=== PATIENT | male | born 1955 | race Caucasian/White ===

== ENCOUNTER 2019-12-30 16:44 | Observation (INO) ==
[2019-12-30 16:49] VITALS: BMI 27.6
[2019-12-30] MEDS ORDERED: NS 1000 ML 1,000 ML ONE (16:49)
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
[2019-12-30] MEDS ORDERED: NS 1000 ML 1,000 ML IV ONE (16:56)
[2019-12-30] MEDS ORDERED: ZOFRAN INJ 4 MG VIAL IVP ONE (17:24)
[2019-12-30] MEDS ORDERED: MORPHINE SULFATE INJ 4 MG IVP ONE (17:24)
[2019-12-30] MEDS ORDERED: ZOFRAN INJ 4 MG VIAL ONE (17:26)
[2019-12-30] MEDS ORDERED: MORPHINE SULFATE INJ 4 MG ONE (17:27)
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
[2019-12-30] MEDS ORDERED: DILAUDID INJ IVP ONE (17:48)
[2019-12-30] MEDS ORDERED: DILAUDID INJ ONE (17:49)
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
[2019-12-30 18:01] LABS: BASOPHILS % (AUTO) 0.3 % (0.2-1.0); EOSINOPHILS % (AUTO) 0.2 % (0.9-2.9); HEMATOCRIT 44.1 % (42.0-54.0); HEMOGLOBIN 14.9 g/dL (13.5-18.0); LYMPHOCYTES # (AUTO) 0.7 X10^3/uL (1.3-2.9); LYMPHOCYTES % (AUTO) 6.4 % (21.0-51.0); MEAN CORPUSCULAR HGB CONC 33.8 g/dL (33.0-35.0); MEAN CORPUSCULAR VOLUME 94.6 fL (80.0-100.0); MEAN PLATELET VOLUME 7.4 fL (7.4-11.0); MONOCYTES # (AUTO) 0.2 x10^3/uL (0.3-0.8); MONOCYTES % (AUTO) 2.3 % (0.0-13.0); NEUTROPHILS # (AUTO) 9.2 x10^3/uL (2.2-4.8); NEUTROPHILS % (AUTO) 90.8 % (42.0-75.0); PLATELET COUNT 137 X10^3/uL (150.0-450.0); RED BLOOD COUNT 4.66 X10^6/uL (4.7-6.0); RED CELL DISTRIBUTION WIDTH 14.4 % (11.6-16.5); WHITE BLOOD COUNT 10.2 X10^3/uL (3.6-10.0)
[2019-12-30 18:28] LABS: BAND NEUTROPHILS % 4 % (0-10); PLATELET MORPHOLOGY COMMENT NORMAL (NORMAL)
[2019-12-30 18:29] LABS: BLOOD UREA NITROGEN 18 mg/dL (7-18); CARBON DIOXIDE 27.2 mmol/L (21-32); CHLORIDE 101 mmol/L (98-107); COR NA(FOR HYPERGLY) 141 mmol/L (136-145); CREATININE 1.39 mg/dL (0.70-1.30); SODIUM 140 mmol/L (136-145); TROPONIN I 0.02 ng/mL (0-1.5); eGFR NON BLACK RACES 55 (>60)
[2019-12-30 19:05] LABS: ALANINE AMINOTRANSFERASE 41 Units/L (12-78); ALBUMIN 3.6 g/dL (3.4-5.0); ALKALINE PHOSPHATASE 55 Units/L (46-116); ASPARTATE AMINO TRANSFERASE 40 Units/L (15-37); CKMB % 2.4 % (<4); CREATINE KINASE 222 Units/L (39-308); TOTAL PROTEIN 7.1 g/dL (6.4-8.2)
[2019-12-30 19:06] LABS: CREATINE KINASE MB 5.4 ng/mL (0-4.0)
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
[2019-12-30] MEDS ORDERED: HumuLIN R SC PRN (20:39)
[2019-12-30] MEDS: NS 1000 ML 1,000 ML IV SCH (21:48)
[2019-12-30] MEDS ORDERED: DESYREL PO SCH (22:00)
[2019-12-31 00:31] LABS: CKMB % 2.9 % (<4); TROPONIN I 0.02 ng/mL (0-1.5)
[2019-12-31 00:44] LABS: CREATINE KINASE MB 9.8 ng/mL (0-4.0)
[2019-12-31] MEDS: DILAUDID INJ IVP PRN ×2 (01:24→08:56)
[2019-12-31 01:42] LABS: BILIRUBIN,URINE NEGATIVE (NEGATIVE); BLOOD/HEMOGLOBIN,URINE 5+ (NEGATIVE); GLUCOSE, URINE NEGATIVE (NEGATIVE); KETONES,URINE 3+ (NEGATIVE); LEUKOCYTE ESTERASE ,URINE 2+ (NEGATIVE); NITRITES,URINE NEGATIVE (NEGATIVE); PH,URINE 6.5 (5.0 - 8.0); PROTEIN,URINE 2+ (NEGATIVE); UROBILINOGEN,URINE NORMAL (NORMAL)
[2019-12-31 01:52] LABS: AMORPHOUS SEDIMENT,UR 2+ /HPF (NEGATIVE); APPEARANCE,URINE SLIGHTLY HAZY (CLEAR); BACTERIA,URINE TRACE /HPF (NEGATIVE); COLOR,URINE YELLOW (YELLOW); RBC,URINE TNTC /HPF (0-3); SQUAMOUS EPITHELIAL CELL,UR RARE /HPF (NEGATIVE)
[2019-12-31 05:37] LABS: BASOPHILS % (AUTO) 0.3 % (0.2-1.0); EOSINOPHILS % (AUTO) 0.1 % (0.9-2.9); HEMATOCRIT 38.6 % (42.0-54.0); HEMOGLOBIN 13.1 g/dL (13.5-18.0); LYMPHOCYTES # (AUTO) 0.7 X10^3/uL (1.3-2.9); LYMPHOCYTES % (AUTO) 9.3 % (21.0-51.0); MEAN CORPUSCULAR HEMOGLOBIN 32.4 pg (27.0-34.0); MEAN CORPUSCULAR HGB CONC 34.1 g/dL (33.0-35.0); MEAN CORPUSCULAR VOLUME 95.1 fL (80.0-100.0); MEAN PLATELET VOLUME 7.6 fL (7.4-11.0); MONOCYTES # (AUTO) 0.3 x10^3/uL (0.3-0.8); MONOCYTES % (AUTO) 3.7 % (0.0-13.0); NEUTROPHILS # (AUTO) 6.8 x10^3/uL (2.2-4.8); NEUTROPHILS % (AUTO) 86.6 % (42.0-75.0); PLATELET COUNT 117 X10^3/uL (150.0-450.0); RED BLOOD COUNT 4.05 X10^6/uL (4.7-6.0); RED CELL DISTRIBUTION WIDTH 14.2 % (11.6-16.5); WHITE BLOOD COUNT 7.8 X10^3/uL (3.6-10.0)
[2019-12-31 06:26] LABS: ALANINE AMINOTRANSFERASE 36 Units/L (12-78); ALBUMIN 3.2 g/dL (3.4-5.0); ALKALINE PHOSPHATASE 45 Units/L (46-116); ASPARTATE AMINO TRANSFERASE 43 Units/L (15-37); BLOOD UREA NITROGEN 14 mg/dL (7-18); CALCIUM 8.6 mg/dL (8.5-10.1); CARBON DIOXIDE 27.2 mmol/L (21-32); CHLORIDE 102 mmol/L (98-107); CKMB % 2.7 % (<4); COR CA(FOR HYPOALB) 9.2 mg/dL (8.5-10.1); COR NA(FOR HYPERGLY) 137 mmol/L (136-145); CREATINE KINASE 334 Units/L (39-308); CREATININE 1.03 mg/dL (0.70-1.30); SODIUM 137 mmol/L (136-145); TOTAL PROTEIN 6.6 g/dL (6.4-8.2); TROPONIN I 0.02 ng/mL (0-1.5); eGFR NON BLACK RACES > 60 (>60)
[2019-12-31 06:29] LABS: CREATINE KINASE MB 9.1 ng/mL (0-4.0)
[2019-12-31] MEDS: TORADOL 30 MG VIAL IVP SCH ×2 (12:01→17:37)
[2019-12-31] MEDS: COZAAR PO SCH ×2 (12:01→20:05)
[2019-12-31] MEDS: TYLENOL #3 TAB (W/CODEINE) PO SCH ×4 (12:01→20:04)
[2019-12-31] MEDS: PROCARDIA XL PO SCH (12:02)
[2019-12-31] MEDS: SYNTHROID 150 mcg TAB PO SCH (12:02)
[2019-12-31] MEDS: MICRO K EXTEN CAP 10 MEQ PO SCH (12:03)
[2019-12-31] MEDS ORDERED: RisperDAL TAB 1 MG PO SCH (14:00)
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
[2019-12-31] MEDS: PREDNISONE TAB 10 MG PO SCH ×2 (14:54→22:31)
[2019-12-31] MEDS: EFFEXOR XR 75 MG CAP 24-HR PO SCH ×2 (14:54→22:32)
[2019-12-31] MEDS: RisperDAL TAB 1 MG PO SCH ×2 (14:54→22:31)
[2019-12-31] MEDS ORDERED: ZOLOFT PO ONE (19:33)
[2019-12-31] MEDS: NS 1000 ML 1,000 ML IV SCH ×2 (19:54→22:36)
[2019-12-31] MEDS: ZOLOFT PO SCH (20:02)
[2019-12-31] MEDS: COLACE CAP 100 MG PO SCH (20:02)
[2019-12-31] MEDS: DESYREL PO SCH (20:03)
[2019-12-31] MEDS: ZOCOR TAB 40 MG PO SCH (20:04)
[2020-01-01] MEDS: TORADOL 30 MG VIAL IVP SCH ×3 (02:22→17:36)
[2020-01-01] MEDS: PREDNISONE TAB 10 MG PO SCH ×3 (05:12→21:00)
[2020-01-01] MEDS: RisperDAL TAB 1 MG PO SCH ×3 (05:12→21:00)
[2020-01-01] MEDS: EFFEXOR XR 75 MG CAP 24-HR PO SCH ×3 (05:12→20:59)
[2020-01-01 06:03] LABS: BASOPHILS % (AUTO) 0.2 % (0.2-1.0); EOSINOPHILS % (AUTO) 0.1 % (0.9-2.9); HEMATOCRIT 37.9 % (42.0-54.0); HEMOGLOBIN 12.7 g/dL (13.5-18.0); LYMPHOCYTES # (AUTO) 0.9 X10^3/uL (1.3-2.9); LYMPHOCYTES % (AUTO) 13.6 % (21.0-51.0); MEAN CORPUSCULAR HEMOGLOBIN 31.7 pg (27.0-34.0); MEAN CORPUSCULAR HGB CONC 33.5 g/dL (33.0-35.0); MEAN CORPUSCULAR VOLUME 94.7 fL (80.0-100.0); MEAN PLATELET VOLUME 7.6 fL (7.4-11.0); MONOCYTES # (AUTO) 0.4 x10^3/uL (0.3-0.8); MONOCYTES % (AUTO) 6.3 % (0.0-13.0); NEUTROPHILS # (AUTO) 5.4 x10^3/uL (2.2-4.8); NEUTROPHILS % (AUTO) 79.8 % (42.0-75.0); PLATELET COUNT 110 X10^3/uL (150.0-450.0); WHITE BLOOD COUNT 6.7 X10^3/uL (3.6-10.0)
[2020-01-01 06:11] LABS: ALANINE AMINOTRANSFERASE 39 Units/L (12-78); ALBUMIN 3.3 g/dL (3.4-5.0); ALKALINE PHOSPHATASE 48 Units/L (46-116); ASPARTATE AMINO TRANSFERASE 42 Units/L (15-37); BLOOD UREA NITROGEN 16 mg/dL (7-18); CALCIUM 8.9 mg/dL (8.5-10.1); CARBON DIOXIDE 29.1 mmol/L (21-32); CHLORIDE 104 mmol/L (98-107); COR CA(FOR HYPOALB) 9.5 mg/dL (8.5-10.1); CREATININE 0.92 mg/dL (0.70-1.30); SODIUM 140 mmol/L (136-145); TOTAL PROTEIN 6.8 g/dL (6.4-8.2); eGFR NON BLACK RACES > 60 (>60)
[2020-01-01] MEDS: DILAUDID INJ IVP PRN ×2 (06:17→14:07)
[2020-01-01 09:04] LABS: CKMB % 1.6 % (<4); TROPONIN I 0.02 ng/mL (0-1.5)
[2020-01-01 09:08] LABS: CREATINE KINASE MB 4.5 ng/mL (0-4.0)
[2020-01-01] MEDS: COZAAR PO SCH ×2 (09:23→21:00)
[2020-01-01] MEDS: TYLENOL #3 TAB (W/CODEINE) PO SCH ×4 (09:24→21:00)
[2020-01-01] MEDS: PROCARDIA XL PO SCH (09:24)
[2020-01-01] MEDS: SYNTHROID 150 mcg TAB PO SCH (09:24)
[2020-01-01] MEDS: MICRO K EXTEN CAP 10 MEQ PO SCH (09:24)
[2020-01-01] MEDS: NS 1000 ML 1,000 ML IV SCH ×2 (10:14→10:21)
[2020-01-01] MEDS ORDERED: ZOLOFT PO ONE (20:21)
[2020-01-01] MEDS: DESYREL PO SCH (20:57)
[2020-01-01] MEDS: ZOLOFT PO SCH (20:58)
[2020-01-01] MEDS: ZOCOR TAB 40 MG PO SCH (20:59)
[2020-01-01] MEDS: COLACE CAP 100 MG PO SCH (20:59)
[2020-01-02] MEDS: NS 1000 ML 1,000 ML IV SCH (02:16)
[2020-01-02] MEDS: TORADOL 30 MG VIAL IVP SCH ×3 (02:16→09:47)
[2020-01-02] MEDS: PREDNISONE TAB 10 MG PO SCH (05:55)
[2020-01-02] MEDS: EFFEXOR XR 75 MG CAP 24-HR PO SCH (05:55)
[2020-01-02] MEDS: RisperDAL TAB 1 MG PO SCH (05:56)
[2020-01-02] MEDS: DILAUDID INJ IVP PRN (06:10)
[2020-01-02 06:16] LABS: BASOPHILS % (AUTO) 0.3 % (0.2-1.0); EOSINOPHILS % (AUTO) 0.1 % (0.9-2.9); HEMATOCRIT 36.2 % (42.0-54.0); HEMOGLOBIN 12.3 g/dL (13.5-18.0); LYMPHOCYTES # (AUTO) 1.3 X10^3/uL (1.3-2.9); LYMPHOCYTES % (AUTO) 16.4 % (21.0-51.0); MEAN CORPUSCULAR HGB CONC 34.1 g/dL (33.0-35.0); MEAN PLATELET VOLUME 7.5 fL (7.4-11.0); MONOCYTES # (AUTO) 0.6 x10^3/uL (0.3-0.8); MONOCYTES % (AUTO) 7.4 % (0.0-13.0); NEUTROPHILS # (AUTO) 5.9 x10^3/uL (2.2-4.8); NEUTROPHILS % (AUTO) 75.8 % (42.0-75.0); PLATELET COUNT 125 X10^3/uL (150.0-450.0); RED BLOOD COUNT 3.85 X10^6/uL (4.7-6.0); WHITE BLOOD COUNT 7.8 X10^3/uL (3.6-10.0)
[2020-01-02 06:21] LABS: ALANINE AMINOTRANSFERASE 36 Units/L (12-78); ALBUMIN 3.2 g/dL (3.4-5.0); ALKALINE PHOSPHATASE 44 Units/L (46-116); ASPARTATE AMINO TRANSFERASE 34 Units/L (15-37); BLOOD UREA NITROGEN 15 mg/dL (7-18); CARBON DIOXIDE 31.7 mmol/L (21-32); CHLORIDE 103 mmol/L (98-107); COR CA(FOR HYPOALB) 9.6 mg/dL (8.5-10.1); CREATININE 0.94 mg/dL (0.70-1.30); SODIUM 139 mmol/L (136-145); TOTAL PROTEIN 6.7 g/dL (6.4-8.2); eGFR NON BLACK RACES > 60 (>60)
[2020-01-02] MEDS: COZAAR PO SCH (08:40)
[2020-01-02] MEDS: MICRO K EXTEN CAP 10 MEQ PO SCH (08:40)
[2020-01-02] MEDS: TYLENOL #3 TAB (W/CODEINE) PO SCH (08:41)
[2020-01-02] MEDS: SYNTHROID 150 mcg TAB PO SCH (08:41)
[2020-01-02] MEDS: PROCARDIA XL PO SCH (08:41)
[2020-01-02 09:46] VITALS: BP 142/82
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
== END 2020-01-02 11:45 | disposition home or self-care (01) ==
LOC: ER 16:44 → MED/SURG 16:44
PROVIDERS: ADMIT Internal Medicine; ATTEND Internal Medicine
DX: M51.34 Other intervertebral disc degeneration, thoracic region; R26.89 Other abnormalities of gait and mobility; S40.812A Abrasion of left upper arm, initial encounter; V89.2XXA Person injured in unspecified motor-vehicle accident, traffic, initial encounter; Y92.9 Unspecified place or not applicable; S41.111A Laceration without foreign body of right upper arm, initial encounter; I10 Essential (primary) hypertension; I95.89 Other hypotension; S62.666A Nondisplaced fracture of distal phalanx of right little finger, initial encounter for closed fracture; W22.10XA Striking against or struck by unspecified automobile airbag, initial encounter; R10.2 Pelvic and perineal pain; G89.11 Acute pain due to trauma; R40.4 Transient alteration of awareness; R94.31 Abnormal electrocardiogram [ECG] [EKG]; M54.2 Cervicalgia; S41.112A Laceration without foreign body of left upper arm, initial encounter; S40.811A Abrasion of right upper arm, initial encounter; M54.5 Low back pain
CPT/HCPCS: 36415; 70450; 72125; 72128; 72131; 72192; 73130; 80053; 81001; 82550; 82553; 83735; 84484; 85025; 93005; 94760; 96360; 96361; 96365; 96367; 96374; 96375; 97116; 97161; 97530; 99284; G0378; J1170; J1885; J2270; J2405; J7030; J7512

== ENCOUNTER 2020-04-26 09:12 | Inpatient (IN) ==
[2020-04-26 09:24] VITALS: BMI 27.6
--- NOTE | 2020-04-26 09:28 | DR.EXTPAIN ---
HPI Time seen Time Seen by Provider: 04/26/20 09:26 PCP Primary Care Physician: DR. DANIEL HPI Comment HPI Comment: PATIENT IS 64 YR OLD MALE IN ER WITH HISTORY OF FREQUENT FALLS OVER FEW DAYS. FELL THIS AM AND EMS CALLED. DENIES LOC. HE IS COMPLAINING OF GENERALIZED BODY ACHES. NO FEVER OR CHEST PAIN. COUGHING, NON PRODUCTIVE AND WEAK. SKIN TEAR AND PAIN RIGHT ELBOW. SLIGHT PAIN LOWER NECK. DENIES DYSURIA. Complaint/Symptoms Chief Complaint Doctor Comments: FREQUENT FALLS. Chief Complaint:: PT HAD A FALL AT HOME THIS AM. PT REPORTS MULTIPLE FALLS OVER PAST FEW DAYS. PT DENIES PASSING OUT OF HITTING HIS HEAD. PT C/O BEING SORE ALL OVER BUT DENIES SPECIFIC INJURY. COVID-19 Coronavirus risk:travel/contact w/high risk person: No Has patient experienced Coronavirus symptoms: No Nurses notes reviewed Nurses Notes Review: Yes Source History Provided: Patient and EMS Mode of arrival Mode of Arrival: EMS Timing Onset of Chief Complaint: 04/26/20 Context History of: Arthritis Associated signs and symptoms Associated Signs and Symptoms: Laceration (SKIN TEAR RIGHT ELBOW.), Weakness and Pain PMH PMH Past Medical History: Yes Past Medical History: Anxiety, Depression and Hypertension Past Surgical History: Yes Surgical History: Ortho Surgery Family History History of Family Medical Conditions: Yes Family Medical History: Cancer Social History Does patient currently use any type of tobacco product: Yes Have you used tobacco products in the last 12 months: Yes Type of Tobacco Use: Cigarettes Does any household member use tobacco: No Alcohol Use: DAILY Do you use any recreational Drugs:: No Lives With: Family Lives Where: Home Travel Risk Coronavirus risk:travel/contact w/high risk person: No Has patient experienced Coronavirus symptoms: No Infectious screening In the last 2 months have you had wt loss of >10#?: NO Have you had fever, night sweats or hemotysis?: No Have you traveled outside the country in the last 6 months?: No Isolation: Standard ROS Review of Systems Constitutional: See HPI, Weakness and Fatigue; negative Fever Eyes: No Symptoms Reported and See HPI; negative Blurred Vision and Diplopia ENTM: See HPI and Nose Congestion; negative Ear Pain, Nose Discharge and Throat Pain Respiratoy: See HPI, Non-Productive Cough and Short of Breath (ON EXERTION.); negative Wheezing Cardiovascular: No Symptoms Reported and See HPI; negative Chest Pain and Syncope Gastrointestinal/Abdominal: See HPI and Nausea; negative Abdominal Pain, Diarrhea and Vomiting Genitourinary: No Symptoms Reported and See HPI; negative Dysuria, Hematuria and Pain Neurological: See HPI, Headache and Weakness; negative Dizziness Musculoskeletal: See HPI, Back Pain and Muscle Pain Integumentary: No Symptoms Reported and See HPI; negative Change in Color, Rash and Juandice Hematologic/Lymphatic: No Symptoms Reported and See HPI; negative Easy Bruising and Swollen Glands Endocrine: No Symptoms Reported and See HPI; negative Increased Thirst and Increased Urine Psychiatric: No Symptoms Reported and See HPI All Other Systems: Reviewed and Negative PE Vital Signs Vitals: Temperature 98.2 F Pulse Rate 84 Respiratory Rate 20 Blood Pressure [Left Arm] 142/82 Blood Pressure 170/86 O2 Sat by Pulse Oximetry 96 General Limitations: No Limitations General Appearance: Alert and In No Apparent Distress Head Head Exam: Normal Inspection and Atraumatic Eyes Eye exam: Normal Appearance and PERRL; negative Scleral Icterus and Conjunctival Injection ENT ENT Exam: Normal Exam, Normal Oropharynx, Normal External Ear Exam and TM's Normal Bilaterally Neck Neck Exam: Normal Inspection and Trachea Midline; negative Tenderness and Lymphadenopathy Chest Chest Inspection: Normal Inspection and Symmetric Chest Wall Rise; negative Tenderness Respiratory Respiratory Exam: Normal Lung Sounds Bilat; negative Accessory Muscle Use, Chest Wall Tenderness and Respiratory Distress Respiratory Exam: Bilateral: Rhonchi and Lower: Rhonchi Cardiovascular Cardiovascular Exam: Regular Rate, Normal Rhythm and Normal Heart Sounds; negative Systolic Murmur and Diastolic Murmur Abdominal Exam Abdominal Exam: Normal Inspection, Normal Bowel Sounds and Soft; negative Tenderness Extremities Extremities Exam: Normal Inspection and Normal Capillary Refill; negative Tenderness, Edema and Calf Tenderness Back Back Exam: Normal Inspection; negative Tenderness, (R) CVA Tenderness and (L) CVA Tenderness Neurological Neurological Exam: Alert, Oriented X3 and CN II-XII Intact; negative Motor Sensory Deficit Psychiatric Psychiatric Exam: Normal Affect and Normal Mood Skin Skin Exam: Warm, Dry, Intact and Normal Color MDM Differential Diagnosis Differential Diagnosis: Other (FREQUENT FALL, DEHYDRATION, HI, PNEUMONIA, UTI/SEPSIS, GENERALIZED WEAKNESS, CVA.) COURSE Treatment Treatment: SEE ORDERS. NS IV. Consultation Consultation Comments: DISCUSSED PATIENT WITH DR. MANLEY, SHE WILL ADMIT PATIENT. Education/Counseling Education/Counseling: Patient Educated On: Diagnosis ROR Labs Reviewed Laboratory Results Reviewed?: Yes Result Diagrams: 04/29/20 05:10 04/29/20 05:10 Laboratory: WBC 12.2 X10^3/uL (3.6-10.0) H 04/26/20 09:54 RBC 4.75 X10^6/uL (4.7-6.0) 04/26/20 09:54 Hgb 14.7 g/dL (13.5-18.0) 04/26/20 09:54 Hct 43.9 % (42.0-54.0) 04/26/20 09:54 MCV 92.4 fL (80.0-100.0) 04/26/20 09:54 MCH 30.9 pg (27.0-34.0) 04/26/20 09:54 MCHC 33.5 g/dL (33.0-35.0) 04/26/20 09:54 RDW 14.9 % (11.6-16.5) 04/26/20 09:54 Plt Count 127 X10^3/uL (150.0-450.0) L 04/26/20 09:54 MPV 7.0 fL (7.4-11.0) L 04/26/20 09:54 Neut % (Auto) 85.8 % (42.0-75.0) H 04/26/20 09:54 Lymph % (Auto) 6.4 % (21.0-51.0) L 04/26/20 09:54 [place] % (Auto) 7.6 % (0.0-13.0) 04/26/20 09:54 Eos % (Auto) 0.0 % (0.9-2.9) L 04/26/20 09:54 Baso % (Auto) 0.2 % (0.2-1.0) 04/26/20 09:54 Neut # (Auto) 10.4 x10^3/uL (2.2-4.8) H 04/26/20 09:54 Lymph # (Auto) 0.8 X10^3/uL (1.3-2.9) L 04/26/20 09:54 [place] # (Auto) 0.9 x10^3/uL (0.3-0.8) H 04/26/20 09:54 Eos # (Auto) 0.0 x10^3/uL (0.0-0.2) 04/26/20 09:54 Baso # (Auto) 0.0 X10^3/uL (0.0-0.1) 04/26/20 09:54 Absolute Nucleated RBC 0.0 /100WBC 04/26/20 09:54 Sodium 134 mmol/L (136-145) L 04/26/20 09:54 Corrected Sodium TNP 04/26/20 09:54 Potassium 5.2 mmol/L (3.5-5.1) H 04/26/20 09:54 Chloride 100 mmol/L (98-107) 04/26/20 09:54 Carbon Dioxide 22.7 mmol/L (21-32) 04/26/20 09:54 BUN 17 mg/dL (7-18) 04/26/20 09:54 Creatinine 1.21 mg/dL (0.70-1.30) 04/26/20 09:54 Est GFR (MDRD) Af Amer > 60 (>60) 04/26/20 09:54 Est GFR (MDRD) Non-Af > 60 (>60) 04/26/20 09:54 Glucose 75 mg/dL (65-99) 04/26/20 09:54 Calcium 9.0 mg/dL (8.5-10.1) 04/26/20 09:54 Corrected Calcium TNP 04/26/20 09:54 Total Bilirubin 0.60 mg/dL (0.2-1.0) 04/26/20 09:54 AST 97 Units/L (15-37) H 04/26/20 09:54 ALT 63 Units/L (12-78) 04/26/20 09:54 Alkaline Phosphatase 76 Units/L (46-116) 04/26/20 09:54 Creatine Kinase 6976 Units/L (39-308) H 04/26/20 11:38 CK-MB (CK-2) 9.5 ng/mL (0-4.0) H* 04/26/20 11:38 CK/CKMB % Calc 0.1 % (<4) 04/26/20 11:38 Troponin I 0.05 ng/mL (0-1.5) 04/26/20 11:38 Total Protein 7.5 g/dL (6.4-8.2) 04/26/20 09:54 Albumin 3.8 g/dL (3.4-5.0) 04/26/20 09:54 Globulin 3.7 g/dL (2.5-4.5) 04/26/20 09:54 Albumin/Globulin Ratio 1.0 Ratio (1.1-2.1) L 04/26/20 09:54 Specimen Type Clean catch urine 04/26/20 09:45 Urine Color Yellow (YELLOW) 04/26/20 09:45 Urine Appearance Slightly hazy (CLEAR) 04/26/20 09:45 Urine pH 6.0 (5.0 - 8.0) 04/26/20 09:45 Ur Specific [place] 1.015 (1.000-1.030) 04/26/20 09:45 Urine Protein 2+ (NEGATIVE) 04/26/20 09:45 Urine Glucose (UA) Negative (NEGATIVE) 04/26/20 09:45 Urine Ketones 3+ (NEGATIVE) 04/26/20 09:45 Urine Occult Blood 5+ (NEGATIVE) 04/26/20 09:45 Urine Nitrite Negative (NEGATIVE) 04/26/20 09:45 Urine Bilirubin Negative (NEGATIVE) 04/26/20 09:45 Urine Urobilinogen Normal (NORMAL) 04/26/20 09:45 Ur Leukocyte Esterase Negative (NEGATIVE) 04/26/20 09:45 Urine RBC 5-10 /HPF (0-3) A 04/26/20 09:45 Urine WBC 0-2 /HPF (0-5) 04/26/20 09:45 Ur Squamous Epith Cells Rare /HPF (NEGATIVE) 04/26/20 09:45 Urine Bacteria Trace /HPF (NEGATIVE) 04/26/20 09:45 Hyaline Casts Moderate /LPF (NEGATIVE) 04/26/20 09:45 Ur Culture Indicated? No/not indicated 04/26/20 09:45 Urine Opiates Screen Positive (NEG=<300) 04/26/20 09:45 Urine Methadone Screen Negative (NEG=<300) 04/26/20 09:45 Ur Barbiturates Screen Negative (NEG=<200) 04/26/20 09:45 Ur Phencyclidine Scrn Negative (NEG=<25) 04/26/20 09:45 Ur Amphetamines Screen Negative (NEG=<1000) 04/26/20 09:45 U Benzodiazepines Scrn Negative (NEG=<200) 04/26/20 09:45 Urine Cocaine Screen Negative (NEG=<300) 04/26/20 09:45 U Marijuana (THC) Screen Negative (NEG=<50) 04/26/20 09:45 XRAY XRAY Interpreted by: Radiologist (REPORTS NOTED AND DISCUSSED WITH PATIENT,) and Self EKG Rate: 97 [place]: Normal Rhythm: NSR Block: LBBB ST: Inf, Ischemia and Nonsp Opioid Opioid Risk Tool Age (Valerio box if 16-45): No History of Preadolescent Sexual Abuse: No Total: 0 Total Score Risk Category: Low Risk Copyright: [facility] predicting aberrant behaviors Diagnosis Discharge Problem: Abnormal cardiac enzyme level, Generalized weakness Rhabdomyolysis Qualifiers: Rhabdomyolysis type: traumatic Encounter type: initial encounter Qualified Code(s): T79.6XXA - Traumatic ischemia of muscle, initial encounter
[2020-04-26 09:59] LABS: BILIRUBIN,URINE NEGATIVE (NEGATIVE); BLOOD/HEMOGLOBIN,URINE 5+ (NEGATIVE); GLUCOSE, URINE NEGATIVE (NEGATIVE); KETONES,URINE 3+ (NEGATIVE); LEUKOCYTE ESTERASE ,URINE NEGATIVE (NEGATIVE); NITRITES,URINE NEGATIVE (NEGATIVE); PROTEIN,URINE 2+ (NEGATIVE); UROBILINOGEN,URINE NORMAL (NORMAL)
[2020-04-26 10:00] LABS: BASOPHILS % (AUTO) 0.2 % (0.2-1.0); HEMATOCRIT 43.9 % (42.0-54.0); HEMOGLOBIN 14.7 g/dL (13.5-18.0); LYMPHOCYTES # (AUTO) 0.8 X10^3/uL (1.3-2.9); LYMPHOCYTES % (AUTO) 6.4 % (21.0-51.0); MEAN CORPUSCULAR HEMOGLOBIN 30.9 pg (27.0-34.0); MEAN CORPUSCULAR HGB CONC 33.5 g/dL (33.0-35.0); MEAN CORPUSCULAR VOLUME 92.4 fL (80.0-100.0); MONOCYTES # (AUTO) 0.9 x10^3/uL (0.3-0.8); MONOCYTES % (AUTO) 7.6 % (0.0-13.0); NEUTROPHILS # (AUTO) 10.4 x10^3/uL (2.2-4.8); NEUTROPHILS % (AUTO) 85.8 % (42.0-75.0); PLATELET COUNT 127 X10^3/uL (150.0-450.0); RED BLOOD COUNT 4.75 X10^6/uL (4.7-6.0); RED CELL DISTRIBUTION WIDTH 14.9 % (11.6-16.5); WHITE BLOOD COUNT 12.2 X10^3/uL (3.6-10.0)
[2020-04-26 10:16] LABS: APPEARANCE,URINE SLIGHTLY HAZY (CLEAR); BACTERIA,URINE TRACE /HPF (NEGATIVE); COLOR,URINE YELLOW (YELLOW); HYALINE CASTS, URINE MODERATE /LPF (NEGATIVE); SQUAMOUS EPITHELIAL CELL,UR RARE /HPF (NEGATIVE)
[2020-04-26 10:17] LABS: BLOOD UREA NITROGEN 17 mg/dL (7-18); CARBON DIOXIDE 22.7 mmol/L (21-32); CHLORIDE 100 mmol/L (98-107); CREATININE 1.21 mg/dL (0.70-1.30); SODIUM 134 mmol/L (136-145); TROPONIN I 0.04 ng/mL (0-1.5); eGFR NON BLACK RACES > 60 (>60)
[2020-04-26 10:40] LABS: ALANINE AMINOTRANSFERASE 63 Units/L (12-78); ALBUMIN 3.8 g/dL (3.4-5.0); ALKALINE PHOSPHATASE 76 Units/L (46-116); ASPARTATE AMINO TRANSFERASE 97 Units/L (15-37); TOTAL PROTEIN 7.5 g/dL (6.4-8.2)
[2020-04-26 10:41] LABS: CKMB % 0.1 % (<4); CREATINE KINASE 4990 Units/L (39-308)
--- NOTE | 2020-04-26 10:44 | CT ---
HISTORYS/P FALL, TRAUMASTUDYHEAD (TRAUMA)[id number].TECHNIQUEMultiple axial images of the brain were obtained from the skull base to the vertex without administration of IV contrast. Dose reduction techniques including Automa rah Exposure Control (AEC) and adjustment of mA and kV were utilized.FINDINGSThere is ventricular, as well as, cisternal and sulcal prominence, in addition to, atherosclerotic changes of the proximal in tracranial carotid arteries bilaterally. No acute intraparenchymal hemorrhage or mass can be identifi ed. No extra-axial fluid collections are seen. No alteration in the attenuation of the brain parenchy ma can be identified to suggest acute or subacute ischemic change. The ventricular system is symmetri c and nondilated. The extracranial structures are grossly unremarkable.IMPRESSIONMild cerebral atroph ic changes without acute intracranial abnormality.Electronically signed by: EMMIE HEADLEY (Apr 26 0 10:43:46)
--- NOTE | 2020-04-26 10:47 | CT ---
HISTORYS/P FALL, TRAUMASTUDYCERVICAL SPINE W/O [id number] axial images of the cervical spine were obtained from the skull base to the thoracic inlet without administration of IV contrast. Sagittal and coronal reformats were performed and reviewed. Dose reduction techniques including Automated Exposure Control (AEC) and adjustment of mA and kV were utilized.FINDINGSAlignment of the cervical spine is maintained. No evidence for acute cortical disruption or subluxation can be seen. The central canal remains free of compromise from bony fragments or significant soft tissue encroachment. The posterior elements are grossly intact. The prevertebral soft tissues are normal in their appearance. In addition, the surrounding paraspinous soft tissues are unremarkable. Moderate degenerative changes of the cervical spine are noted. There are paraseptal emphysematous changes of both lung apices.IMPRESSIONNo evidence for traumatic injury of the cervical spine.Electronically signed by: EMMIE HEADLEY (Apr 26, 2020 10:46:41)
[2020-04-26 12:39] LABS: CKMB % 0.1 % (<4); TROPONIN I 0.05 ng/mL (0-1.5)
[2020-04-26 12:40] LABS: CREATINE KINASE MB 9.5 ng/mL (0-4.0)
[2020-04-26] MEDS ORDERED: NS 1000 ML 1,000 ML ONE (14:17)
[2020-04-26] MEDS: NS 1000 ML 1,000 ML IV SCH (14:34)
[2020-04-26 15:46] LABS: TROPONIN I 0.07 ng/mL (0-1.5)
--- NOTE | 2020-04-26 16:15 | RAD ---
HISTORY:Right elbow pain after fallStudy:Three views right elbowComparison: NoneFindings:Exam is limited by nonstandard positioning. Alignment appears grossly normal. No acute fracture or dislocation identified. The soft tissues are intact. No joint effusion identified.IMPRESSION:1. No acute osseous abnormality identified.Electronically signed by: WIL TORRES (Apr 26, 2020 16:14:33)
--- NOTE | 2020-04-26 16:16 | RAD ---
HISTORY:Fall, traumaStudy: Single view chestComparison:NoneFindings:No infiltrate, effusion, or pneumothorax identified .Cardiac and mediastinal contours are within normal limits.There are age indeterminate left posterior lateral rib deformities, possibly chronic in nature but clinical correlation with physical exam is needed.IMPRESSION:1. No acute cardiopulmonary abnormality.2. Age-indeterminate left posterior lateral rib fractures, possibly chronic in nature but clinical correlation with physical exam is needed.Electronically signed by: WIL TORRES (Apr 26, 2020 16:15:50)
--- NOTE | 2020-04-26 16:18 | RAD ---
HISTORY:Fall, traumaStudy:Two views of the pelvisComparison:NoneFindings:There are partially visualized postsurgical changes of the left femur. Distal portion of the hardware is not visualized. No displaced fracture or dislocation identified. There are degenerative changes of the bilateral hip joints.IMPRESSION:1. Postsurgical changes of the left femur partially visualized. Distal hardware is not included in the field of view. Moderate degenerative changes of the bilateral hips without definite fracture.Electronically signed by: WIL TORRES (Apr 26, 2020 16:17:09)
[2020-04-26 16:28] LABS: CKMB % 0.1 % (<4)
[2020-04-26 16:29] LABS: CREATINE KINASE MB 10.2 ng/mL (0-4.0)
[2020-04-26 20:53] LABS: TROPONIN I 0.16 ng/mL (0-1.5)
[2020-04-26 20:57] LABS: CREATINE KINASE MB 11.3 ng/mL (0-4.0)
[2020-04-26] MEDS: COLACE CAP 100 MG PO SCH (21:00)
[2020-04-26] MEDS: MILK OF MAGNESIA PO SCH (21:00)
[2020-04-26 21:22] LABS: CKMB % 0.1 % (<4)
[2020-04-27] MEDS: MIRALAX POWDER (1 DOSE 17 G) PO SCH ×2 (01:19→22:32)
[2020-04-27 02:54] LABS: TROPONIN I 0.17 ng/mL (0-1.5)
[2020-04-27 02:59] LABS: CREATINE KINASE MB 9.7 ng/mL (0-4.0)
[2020-04-27 03:09] LABS: CKMB % 0.1 % (<4)
[2020-04-27 06:10] LABS: BASOPHILS % (AUTO) 0.4 % (0.2-1.0); EOSINOPHILS % (AUTO) 0.1 % (0.9-2.9); HEMOGLOBIN 13.7 g/dL (13.5-18.0); LYMPHOCYTES # (AUTO) 1.3 X10^3/uL (1.3-2.9); LYMPHOCYTES % (AUTO) 16.1 % (21.0-51.0); MEAN CORPUSCULAR HEMOGLOBIN 31.6 pg (27.0-34.0); MEAN CORPUSCULAR HGB CONC 34.1 g/dL (33.0-35.0); MEAN CORPUSCULAR VOLUME 92.6 fL (80.0-100.0); MEAN PLATELET VOLUME 7.9 fL (7.4-11.0); MONOCYTES # (AUTO) 0.6 x10^3/uL (0.3-0.8); MONOCYTES % (AUTO) 7.5 % (0.0-13.0); NEUTROPHILS # (AUTO) 6.2 x10^3/uL (2.2-4.8); NEUTROPHILS % (AUTO) 75.9 % (42.0-75.0); PLATELET COUNT 112 X10^3/uL (150.0-450.0); RED BLOOD COUNT 4.32 X10^6/uL (4.7-6.0); WHITE BLOOD COUNT 8.1 X10^3/uL (3.6-10.0)
[2020-04-27 06:38] LABS: ALANINE AMINOTRANSFERASE 70 Units/L (12-78); ALBUMIN 3.2 g/dL (3.4-5.0); ALKALINE PHOSPHATASE 64 Units/L (46-116); ASPARTATE AMINO TRANSFERASE 193 Units/L (15-37); BLOOD UREA NITROGEN 13 mg/dL (7-18); CALCIUM 8.6 mg/dL (8.5-10.1); CARBON DIOXIDE 25.4 mmol/L (21-32); CHLORIDE 102 mmol/L (98-107); COR CA(FOR HYPOALB) 9.2 mg/dL (8.5-10.1); CREATININE 0.94 mg/dL (0.70-1.30); MAGNESIUM 2.3 mg/dL (1.7-2.9); SODIUM 136 mmol/L (136-145); TOTAL PROTEIN 6.8 g/dL (6.4-8.2); eGFR NON BLACK RACES > 60 (>60)
[2020-04-27] MEDS: NS 1000 ML 1,000 ML IV SCH ×2 (06:42→18:39)
[2020-04-27 08:48] LABS: TROPONIN I 0.12 ng/mL (0-1.5)
[2020-04-27] MEDS: LOVENOX INJ 40 MG SYR SC SCH (09:06)
[2020-04-27] MEDS: MILK OF MAGNESIA PO SCH ×3 (09:08→22:32)
[2020-04-27 09:09] LABS: CKMB % 0.1 % (<4); CREATINE KINASE MB 8.8 ng/mL (0-4.0)
--- NOTE | 2020-04-27 10:51 | DR.H&P ---
H&P - History & Physical for Day of: H&P Date: 04/26/20 - Chief Complaint Chief Complaint: GENERALIZED BODY ACHES, GENERALIZED WEAKNESS, FREQUENT FALLS - History of Present Illness History of Present Illness: IS A 64 YEAR OLD PATIENT OF OURS. HE PRESENTED TO THE ER AFTER REPORTS OF MULTIPLE FALLS AT HOME OVER THE PAST 2-3 DAYS. HE DENIESS LOSS OF CONSCIOUSNESS OR HITTING HIS HEAD. HE DOES REPORT ACHING ALL OVER, LEG PAIN, AND A COUGH X 1 WEEK. ON ARRIVAL TO THE ER, HE IS NOTED TO HAVE AN UNSTEADY GAIT AND WEAKNESS. HIS PMH INCLUDES ANXIETY, DEPRESSION, HTN, CHRONIC BACK PAIN, AND HIGH CHOLESTEROL. ON ARRIVAL TO THE ER, VITALS WERE 98.2-98-20-96%RA-143/90. LABS WERE OBTAINED. ABNORMAL LAB VALUES INCLUDE THE FOLLOWING: WBC 12.2, PLT COUNT 127, SODIUM 134 POTASSIUM 5.2, AST 97, CREATINE KINASE 4990, CK-MB 7.0, CRP 100.20. A URINALYSIS WAS OBTAINED AND REVEALED: RBC 5-10, WBC 0-2, LEUKOCYTES NEGATIVE, BACTERIA TRACE. TOXICOLOGY IS POSITIVE FOR OPIATES, OTHERWISE NEGATIVE. A C-SPINE WITHOUT CONTRAST WAS OBTAINED AND REVEALED: No evidence for traumatic injury of the cervical spine. A CHEST XRAY WAS OBTAINED AND REVEALED: 1. No acute cardiopulmonary abnormality. 2. Age-indeterminate left posterior lateral rib fractures, possibly chronic in nature but clinical correlation with physical exam is needed. RIGHT ELBOW XRAY OBTAINED AND REVEALED: 1. No acute osseous abnormality identified. HEAD CT WITHOUT CONTRAST REVEALED: Mild cerebral atrophic changes without acute intracranial abnormality. A PELVIS XRAY WAS OBTAINED AND REVEALED: 1. Postsurgical changes of the left femur partially visualized. Distal hardware is not included in the field of view. Moderate degenerative changes of the bilateral hips without definite fracture. EKG REVEALED: SINUS RHYTHM WITH HR 91. HE WAS ADMITTED TO THE HOSPITAL FOR FURTHER EVALUATION AND TREATMENT OF ACUTE RHABDOMYOLYSIS, ABNORMAL CARDIAC ENZYMES, AND GENERALIZED WEAKNESS. HE WAS STARTED ON NS AT 75 ML/HR, LOVENOX 40MG SC DAILY, MIRALAX 17G PO HS, COLACE 200MG PO HS, AND MILK OF MAGNESIA 30 ML PI BID. WE WILL REVIEW HIS HOME MEDICATIONS. WE WILL HAVE PHYSICAL THERAPY EVALUATE PATIENT. OTHERWISE ,WE WILL FOLLOW UP WITH AM LABS AND CONTINUE TO MONITOR. - Past Medical History Past Medical History: Hypertension, Depression, Anxiety - Past Surgical History Surgical History: Ortho Surgery, Other - Family History Family Medical History: Diabetes Mellitus, Hypertension - Social History Does patient currently use any type of tobacco product: Yes Have you used tobacco products in the last 12 months: Yes Type of Tobacco Use: Cigarettes How many years tobacco product used: 3 Does any household member use tobacco: No Alcohol Use: DAILY Drug Use: None - Medications Home Medications: Penicillins Allergy (Verified 12/30/19 16:44) - Review of Systems Constitutional: See HPI, Weakness, Other (FREQUENT FALLS ) Eyes: No Symptoms Reported ENT: No Symptoms Reported Respiratory: No Symptoms Reported Cardiovascular: No Symptoms Reported. denies: Chest Pain Gastrointestinal: No Symptoms Reported Genitourinary: No Symptoms Reported Musculoskeletal: See HPI, Leg Pain, Neck Pain, Other (RIGHT ELBOW PAIN ) Skin: No Symptoms Reported Neurological: Weakness - Physical Exam Vital Signs: Temperature 98.8 F Pulse Rate [Right Brachial] 82 Pulse Rate 84 Respiratory Rate 18 Blood Pressure [Right Arm] 123/80 Blood Pressure [Left Arm] 146/78 Blood Pressure 170/86 O2 Sat by Pulse Oximetry 97 Oriented: Normal Eyes: Normal Ear: Normal Nose: Normal Throat: Normal Respiratory: Diminished Throughout Cardiovascular: Normal : Normal Auscultation: Bowel Sounds: Normal Palpation: Normal Tenderness: Normal Skin: Decreased [place] Musculoskeletal: Right, Elbow, Leg, Tender Psychiatric: Normal Mood Description: Calm Affect: Normal Speech Pattern: Clear - Assessment/Plan (1) Rhabdomyolysis Qualifiers: Rhabdomyolysis type: traumatic Encounter type: initial encounter Qualified Code(s): T79.6XXA - Traumatic ischemia of muscle, initial encounter Status: Acute Plan: ADMIT, NS AT 75 ML/HR, LOVENOX 40MG SC DAILY, MIRALAX 17G PO HS, COLACE 200MG PO HS, AND MILK OF MAGNESIA 30 ML PI BID. WE WILL REVIEW HIS HOME MEDICATIONS (2) Abnormal cardiac enzyme level Status: Acute (3) Frequent falls Status: Acute (4) Generalized weakness Status: Acute - Allergies Allergies/Adverse Reactions: Allergies Allergy/AdvReac Type Severity Reaction Status Date / Time Penicillins Allergy Verified 12/30/19 16:44
[2020-04-27] MEDS: SYNTHROID 150 mcg TAB PO SCH (18:39)
[2020-04-27] MEDS: COZAAR PO SCH ×2 (18:40→22:00)
[2020-04-27] MEDS: TYLENOL #3 TAB (W/CODEINE) PO PRN (18:44)
[2020-04-27] MEDS ORDERED: COLACE CAP 100 MG PO SCH (21:00)
[2020-04-27] MEDS ORDERED: RESTORIL CAP 15 MG PO ONE (21:20)
[2020-04-27] MEDS: COLACE CAP 100 MG PO SCH (22:30)
[2020-04-27] MEDS ORDERED: RESTORIL CAP 15 MG PO PRN (22:36)
[2020-04-28 05:17] LABS: BASOPHILS % (AUTO) 0.7 % (0.2-1.0); EOSINOPHILS % (AUTO) 0.7 % (0.9-2.9); HEMATOCRIT 36.3 % (42.0-54.0); HEMOGLOBIN 12.3 g/dL (13.5-18.0); LYMPHOCYTES # (AUTO) 1.8 X10^3/uL (1.3-2.9); LYMPHOCYTES % (AUTO) 24.5 % (21.0-51.0); MEAN CORPUSCULAR HEMOGLOBIN 31.3 pg (27.0-34.0); MEAN CORPUSCULAR HGB CONC 33.8 g/dL (33.0-35.0); MEAN CORPUSCULAR VOLUME 92.4 fL (80.0-100.0); MEAN PLATELET VOLUME 7.4 fL (7.4-11.0); MONOCYTES # (AUTO) 0.4 x10^3/uL (0.3-0.8); MONOCYTES % (AUTO) 5.6 % (0.0-13.0); NEUTROPHILS # (AUTO) 4.9 x10^3/uL (2.2-4.8); NEUTROPHILS % (AUTO) 68.5 % (42.0-75.0); PLATELET COUNT 110 X10^3/uL (150.0-450.0); RED BLOOD COUNT 3.93 X10^6/uL (4.7-6.0); RED CELL DISTRIBUTION WIDTH 14.9 % (11.6-16.5); WHITE BLOOD COUNT 7.2 X10^3/uL (3.6-10.0)
[2020-04-28 05:57] LABS: ALANINE AMINOTRANSFERASE 71 Units/L (12-78); ALBUMIN 2.8 g/dL (3.4-5.0); ALKALINE PHOSPHATASE 56 Units/L (46-116); ASPARTATE AMINO TRANSFERASE 192 Units/L (15-37); BLOOD UREA NITROGEN 10 mg/dL (7-18); CALCIUM 8.2 mg/dL (8.5-10.1); CARBON DIOXIDE 27.8 mmol/L (21-32); CHLORIDE 104 mmol/L (98-107); COR CA(FOR HYPOALB) 9.2 mg/dL (8.5-10.1); CREATININE 0.74 mg/dL (0.70-1.30); SODIUM 139 mmol/L (136-145); TOTAL PROTEIN 6.2 g/dL (6.4-8.2); TROPONIN I 0.05 ng/mL (0-1.5); eGFR NON BLACK RACES > 60 (>60)
[2020-04-28 06:00] LABS: CKMB % 0.1 % (<4); CREATINE KINASE 5152 Units/L (39-308); CREATINE KINASE MB 6.3 ng/mL (0-4.0)
[2020-04-28] MEDS: NS 1000 ML 1,000 ML IV SCH ×2 (06:37→19:08)
[2020-04-28] MEDS ORDERED: KLOR-CON PO PRN (06:42)
[2020-04-28] MEDS ORDERED: POTASSIUM CHLORIDE LIQ 20 MEQ UDC PO PRN (06:42)
[2020-04-28] MEDS ORDERED: POTASSIUM CHL 60 MEQ/NS 0.45% 500 ML IV PRN (06:42)
[2020-04-28] MEDS ORDERED: MICRO K EXTEN CAP 10 MEQ PO PRN (06:42)
[2020-04-28] MEDS ORDERED: POTASSIUM CHL 40 MEQ/NS 0.45% 500 ML IV PRN (06:42)
[2020-04-28] MEDS ORDERED: K-RIDER 10 MEQ/NS 100 ML 10 MEQ/100 ML BAG IV PRN (06:42)
[2020-04-28] MEDS: K-DUR TAB 20 MEQ PO PRN (08:58)
[2020-04-28] MEDS: SYNTHROID 150 mcg TAB PO SCH (08:59)
[2020-04-28] MEDS: TYLENOL #3 TAB (W/CODEINE) PO PRN (08:59)
[2020-04-28] MEDS: COZAAR PO SCH ×2 (08:59→20:35)
[2020-04-28] MEDS: MILK OF MAGNESIA PO SCH ×2 (09:00→20:35)
[2020-04-28] MEDS: LOVENOX INJ 40 MG SYR SC SCH (09:00)
[2020-04-28] MEDS: TYLENOL #3 TAB (W/CODEINE) PO SCH ×3 (13:48→20:35)
[2020-04-28] MEDS ORDERED: DESYREL PO ONE (19:21)
[2020-04-28] MEDS: MIRALAX POWDER (1 DOSE 17 G) PO SCH (20:35)
[2020-04-28] MEDS: DESYREL PO SCH (20:35)
[2020-04-28] MEDS: COLACE CAP 100 MG PO SCH (20:35)
--- NOTE | 2020-04-28 22:12 | PCM.PROG ---
Progress Note - Progress Note for Day of Date of Exam: 04/28/20 - Subjective Subjective: IS BEING TREATED FOR RHABDOMYOLYSIS, ABNORMAL CARDIAC ENZYMES, FREQUENT FALLS, AND GENERALIZED WEAKNESS. TODAY, HE IS ALERT AND ORIENTED, LYING IN BED ON MORNING ROUNDS. HE CONTINUES WITH COMPLAINTS OF GENERALIZED WEAKNESS AND LOWER BACK PAIN. BACK PAIN IS CHRONIC. HE CONTINUES TO BE UNSTEADY ON AMBULATION. ON EXAMINATION, HEART IS REGULAR IN RATE AND RHYTHM. BILATERAL LUNGS ARE CLEAR TO AUSCULTATION. ABDOMEN IS ROUND, SOFT, AND NON- TENDER WITH NORMAL BOWEL SOUNDS NOTED IN ALL QUADRANTS. HIS VITALS THIS MORNING ARE: 97.9-58-20-96%-152/73. LABS WERE OBTAINED. ABNORMAL LAB VALUES INCLUDE THE FOLLOWING: RBC 3.93, HGB 12.3, HCT 36.3, PLT COUNT 110, GLUCOSE 101, CALCIUM 8.2, AST 192, CREATINE KINASE 5152, CK-MB 6.3, CRP 72.90, TOTAL PROTEIN 6.2, ALBUMIN 2.8. HE IS CURRENTLY RECEIVING NS AT 75 ML/HR, LOVENOX 40MG SC DAILY, MIRALAX 17G PO HS, COLACE 200MG PO HS, MILK OF MAGNESIA 30 ML PI BID, TYLENOL #3 QID, COZAAR 50MG PO BID, AND THE POTASSIUM AND MAGNESIUM PROTOCOLS. WE WILL CONTINUE WITH CURRENT PLAN OF CARE TODAY. OTHERWISE, WE PLAN TO FOLLOW UP WITH AM LABS AND CONTINUE TO MONITOR. - Past Medical Family Social History Past Med/Fam/Surg Hx: No changes since H&P Allergies: Allergies Penicillins Allergy (Verified 12/30/19 16:44) - Review of Systems ROS: No change since H&P - Vital Signs and I&O's Vital Signs: Temperature 98.5 F Pulse Rate [Right Brachial] 59 Pulse Rate 84 Respiratory Rate 20 Blood Pressure [Right Arm] 123/80 Blood Pressure [Left Arm] 160/81 Blood Pressure 170/86 O2 Sat by Pulse Oximetry 96 Intake and Output: Intake & Output 04/26/20 04/27/20 04/28/20 04/29/20 11:59 11:59 11:59 11:59 Intake Total 1105 / 1105 1761 / 1761 700 / 700 Output Total 1000 / 1000 375 / 375 Balance 105 / 105 1386 / 1386 700 / 700 - Physical Exam Oriented: Normal Eyes: Normal Ear: Normal Nose: Normal Throat: Normal Respiratory: Generalized, Diminished Cardiovascular: Normal : Normal Auscultation: Bowel Sounds: Normal Palpation: Normal Tenderness: Normal Skin: Decreased Turgur Musculoskeletal: Right, Elbow, Leg, Tender Psychiatric: Normal Mood Description: Calm Affect: Normal Speech Pattern: Clear, Appropriate - Laboratory and Diagnostics Result Diagrams: 04/28/20 04:15 04/28/20 04:15 Labs: Laboratory WBC 7.2 X10^3/uL (3.6-10.0) 04/28/20 04:15 RBC 3.93 X10^6/uL (4.7-6.0) L 04/28/20 04:15 Hgb 12.3 g/dL (13.5-18.0) L 04/28/20 04:15 Hct 36.3 % (42.0-54.0) L 04/28/20 04:15 MCV 92.4 fL (80.0-100.0) 04/28/20 04:15 MCH 31.3 pg (27.0-34.0) 04/28/20 04:15 MCHC 33.8 g/dL (33.0-35.0) 04/28/20 04:15 RDW 14.9 % (11.6-16.5) 04/28/20 04:15 Plt Count 110 X10^3/uL (150.0-450.0) L 04/28/20 04:15 MPV 7.4 fL (7.4-11.0) 04/28/20 04:15 Neut % (Auto) 68.5 % (42.0-75.0) 04/28/20 04:15 Lymph % (Auto) 24.5 % (21.0-51.0) 04/28/20 04:15 [place] % (Auto) 5.6 % (0.0-13.0) 04/28/20 04:15 Eos % (Auto) 0.7 % (0.9-2.9) L 04/28/20 04:15 Baso % (Auto) 0.7 % (0.2-1.0) 04/28/20 04:15 Neut # (Auto) 4.9 x10^3/uL (2.2-4.8) H 04/28/20 04:15 Lymph # (Auto) 1.8 X10^3/uL (1.3-2.9) 04/28/20 04:15 [place] # (Auto) 0.4 x10^3/uL (0.3-0.8) 04/28/20 04:15 Eos # (Auto) 0.0 x10^3/uL (0.0-0.2) 04/28/20 04:15 Baso # (Auto) 0.0 X10^3/uL (0.0-0.1) 04/28/20 04:15 Absolute Nucleated RBC 0.0 /100WBC 04/28/20 04:15 PT 13.7 SECONDS (11.8-14.3) 04/27/20 05:15 INR Target Range - 04/27/20 05:15 INR 1.08 (0.8-1.3) 04/27/20 05:15 APTT 29.8 SECONDS (22.9-36.5) 04/27/20 05:15 PTT Comment - 04/27/20 05:15 Sodium 139 mmol/L (136-145) 04/28/20 04:15 Corrected Sodium TNP 04/28/20 04:15 Potassium 3.5 mmol/L (3.5-5.1) 04/28/20 04:15 Chloride 104 mmol/L (98-107) 04/28/20 04:15 Carbon Dioxide 27.8 mmol/L (21-32) 04/28/20 04:15 BUN 10 mg/dL (7-18) 04/28/20 04:15 Creatinine 0.74 mg/dL (0.70-1.30) 04/28/20 04:15 Est GFR (MDRD) Af Amer > 60 (>60) 04/28/20 04:15 Est GFR (MDRD) Non-Af > 60 (>60) 04/28/20 04:15 Glucose 101 mg/dL (65-99) H 04/28/20 04:15 Calcium 8.2 mg/dL (8.5-10.1) L 04/28/20 04:15 Corrected Calcium 9.2 mg/dL (8.5-10.1) 04/28/20 04:15 Magnesium 2.0 mg/dL (1.7-2.9) 04/28/20 04:15 Ferritin 286 ng/mL (26-388) 04/27/20 08:01 Total Bilirubin 0.50 mg/dL (0.2-1.0) 04/28/20 04:15 AST 192 Units/L (15-37) H 04/28/20 04:15 ALT 71 Units/L (12-78) 04/28/20 04:15 Alkaline Phosphatase 56 Units/L (46-116) 04/28/20 04:15 Creatine Kinase 5152 Units/L (39-308) H 04/28/20 04:15 CK-MB (CK-2) 6.3 ng/mL (0-4.0) H* 04/28/20 04:15 CK/CKMB % Calc 0.1 % (<4) 04/28/20 04:15 Troponin I 0.05 ng/mL (0-1.5) 04/28/20 04:15 C-Reactive Protein 72.90 mg/L (0-3.0) H 04/28/20 04:15 Total Protein 6.2 g/dL (6.4-8.2) L 04/28/20 04:15 Albumin 2.8 g/dL (3.4-5.0) L 04/28/20 04:15 Globulin 3.4 g/dL (2.5-4.5) 04/28/20 04:15 Albumin/Globulin Ratio 0.8 Ratio (1.1-2.1) L 04/28/20 04:15 Specimen Type Clean catch urine 04/26/20 09:45 Urine Color Yellow (YELLOW) 04/26/20 09:45 Urine Appearance Slightly hazy (CLEAR) 04/26/20 09:45 Urine pH 6.0 (5.0 - 8.0) 04/26/20 09:45 Ur Specific [place] 1.015 (1.000-1.030) 04/26/20 09:45 Urine Protein 2+ (NEGATIVE) 04/26/20 09:45 Urine Glucose (UA) Negative (NEGATIVE) 04/26/20 09:45 Urine Ketones 3+ (NEGATIVE) 04/26/20 09:45 Urine Occult Blood 5+ (NEGATIVE) 04/26/20 09:45 Urine Nitrite Negative (NEGATIVE) 04/26/20 09:45 Urine Bilirubin Negative (NEGATIVE) 04/26/20 09:45 Urine Urobilinogen Normal (NORMAL) 04/26/20 09:45 Ur Leukocyte Esterase Negative (NEGATIVE) 04/26/20 09:45 Urine RBC 5-10 /HPF (0-3) A 04/26/20 09:45 Urine WBC 0-2 /HPF (0-5) 04/26/20 09:45 Ur Squamous Epith Cells Rare /HPF (NEGATIVE) 04/26/20 09:45 Urine Bacteria Trace /HPF (NEGATIVE) 04/26/20 09:45 Hyaline Casts Moderate /LPF (NEGATIVE) 04/26/20 09:45 Ur Culture Indicated? No/not indicated 04/26/20 09:45 Urine Opiates Screen Positive (NEG=<300) 04/26/20 09:45 Urine Methadone Screen Negative (NEG=<300) 04/26/20 09:45 Ur Barbiturates Screen Negative (NEG=<200) 04/26/20 09:45 Ur Phencyclidine Scrn Negative (NEG=<25) 04/26/20 09:45 Ur Amphetamines Screen Negative (NEG=<1000) 04/26/20 09:45 U Benzodiazepines Scrn Negative (NEG=<200) 04/26/20 09:45 Urine Cocaine Screen Negative (NEG=<300) 04/26/20 09:45 U Marijuana (THC) Screen Negative (NEG=<50) 04/26/20 09:45 SARS-CoV-2 (PCR) Negative (NEGATIVE) 04/27/20 10:50 - Plan (1) Rhabdomyolysis Status: Acute Qualifiers: Rhabdomyolysis type: traumatic Encounter type: initial encounter Qualified Code(s): T79.6XXA - Traumatic ischemia of muscle, initial encounter Plan: NS AT 75 ML/HR, LOVENOX 40MG SC DAILY, MIRALAX 17G PO HS, COLACE 200MG PO HS, AND MILK OF MAGNESIA 30 ML PI BID. WE WILL REVIEW HIS HOME MEDICATIONS (2) Abnormal cardiac enzyme level Status: Acute (3) Frequent falls Status: Acute (4) Generalized weakness Status: Acute
[2020-04-29] MEDS: NS 1000 ML 1,000 ML IV SCH ×4 (00:45→22:41)
[2020-04-29 06:11] LABS: BASOPHILS % (AUTO) 0.6 % (0.2-1.0); EOSINOPHILS # (AUTO) 0.1 x10^3/uL (0.0-0.2); EOSINOPHILS % (AUTO) 1.9 % (0.9-2.9); HEMATOCRIT 37.8 % (42.0-54.0); HEMOGLOBIN 12.8 g/dL (13.5-18.0); LYMPHOCYTES # (AUTO) 1.6 X10^3/uL (1.3-2.9); LYMPHOCYTES % (AUTO) 28.9 % (21.0-51.0); MEAN CORPUSCULAR HEMOGLOBIN 31.3 pg (27.0-34.0); MEAN CORPUSCULAR HGB CONC 33.9 g/dL (33.0-35.0); MEAN CORPUSCULAR VOLUME 92.5 fL (80.0-100.0); MEAN PLATELET VOLUME 7.4 fL (7.4-11.0); MONOCYTES # (AUTO) 0.3 x10^3/uL (0.3-0.8); MONOCYTES % (AUTO) 5.4 % (0.0-13.0); NEUTROPHILS # (AUTO) 3.4 x10^3/uL (2.2-4.8); NEUTROPHILS % (AUTO) 63.2 % (42.0-75.0); PLATELET COUNT 119 X10^3/uL (150.0-450.0); RED BLOOD COUNT 4.08 X10^6/uL (4.7-6.0); RED CELL DISTRIBUTION WIDTH 14.8 % (11.6-16.5); WHITE BLOOD COUNT 5.5 X10^3/uL (3.6-10.0)
[2020-04-29 06:40] LABS: ALANINE AMINOTRANSFERASE 85 Units/L (12-78); ALBUMIN 2.7 g/dL (3.4-5.0); ALKALINE PHOSPHATASE 55 Units/L (46-116); ASPARTATE AMINO TRANSFERASE 206 Units/L (15-37); BLOOD UREA NITROGEN 10 mg/dL (7-18); CALCIUM 8.5 mg/dL (8.5-10.1); CARBON DIOXIDE 30.9 mmol/L (21-32); CHLORIDE 107 mmol/L (98-107); COR CA(FOR HYPOALB) 9.5 mg/dL (8.5-10.1); CREATININE 0.79 mg/dL (0.70-1.30); SODIUM 142 mmol/L (136-145); TOTAL PROTEIN 6.2 g/dL (6.4-8.2); TROPONIN I 0.03 ng/mL (0-1.5); eGFR NON BLACK RACES > 60 (>60)
[2020-04-29 06:44] LABS: CKMB % 0.1 % (<4)
[2020-04-29 06:45] LABS: CREATINE KINASE 3644 Units/L (39-308)
[2020-04-29] MEDS: LOVENOX INJ 40 MG SYR SC SCH (09:36)
[2020-04-29] MEDS: COZAAR PO SCH ×2 (09:36→20:42)
[2020-04-29] MEDS: TYLENOL #3 TAB (W/CODEINE) PO SCH ×4 (09:37→20:40)
[2020-04-29] MEDS: SYNTHROID 150 mcg TAB PO SCH (09:37)
[2020-04-29] MEDS: MILK OF MAGNESIA PO SCH ×2 (09:37→20:42)
[2020-04-29] MEDS: MIRALAX POWDER (1 DOSE 17 G) PO SCH (20:42)
[2020-04-29] MEDS: COLACE CAP 100 MG PO SCH (20:42)
[2020-04-29] MEDS: DESYREL PO SCH (20:42)
[2020-04-30 06:05] LABS: BASOPHILS % (AUTO) 0.5 % (0.2-1.0); EOSINOPHILS # (AUTO) 0.1 x10^3/uL (0.0-0.2); EOSINOPHILS % (AUTO) 1.7 % (0.9-2.9); HEMATOCRIT 38.3 % (42.0-54.0); HEMOGLOBIN 12.9 g/dL (13.5-18.0); LYMPHOCYTES # (AUTO) 1.1 X10^3/uL (1.3-2.9); LYMPHOCYTES % (AUTO) 26.6 % (21.0-51.0); MEAN CORPUSCULAR HEMOGLOBIN 31.4 pg (27.0-34.0); MEAN CORPUSCULAR HGB CONC 33.7 g/dL (33.0-35.0); MEAN PLATELET VOLUME 7.3 fL (7.4-11.0); MONOCYTES # (AUTO) 0.3 x10^3/uL (0.3-0.8); MONOCYTES % (AUTO) 7.7 % (0.0-13.0); NEUTROPHILS # (AUTO) 2.6 x10^3/uL (2.2-4.8); NEUTROPHILS % (AUTO) 63.5 % (42.0-75.0); PLATELET COUNT 117 X10^3/uL (150.0-450.0); RED BLOOD COUNT 4.12 X10^6/uL (4.7-6.0); RED CELL DISTRIBUTION WIDTH 14.9 % (11.6-16.5); WHITE BLOOD COUNT 4.2 X10^3/uL (3.6-10.0)
[2020-04-30 06:29] LABS: ALANINE AMINOTRANSFERASE 92 Units/L (12-78); ALBUMIN 2.7 g/dL (3.4-5.0); ALKALINE PHOSPHATASE 53 Units/L (46-116); ASPARTATE AMINO TRANSFERASE 218 Units/L (15-37); BLOOD UREA NITROGEN 10 mg/dL (7-18); CALCIUM 8.9 mg/dL (8.5-10.1); CARBON DIOXIDE 29.8 mmol/L (21-32); CHLORIDE 104 mmol/L (98-107); COR CA(FOR HYPOALB) 9.9 mg/dL (8.5-10.1); CREATINE KINASE MB 3.8 ng/mL (0-4.0); CREATININE 0.78 mg/dL (0.70-1.30); SODIUM 139 mmol/L (136-145); TOTAL PROTEIN 6.2 g/dL (6.4-8.2); TROPONIN I 0.03 ng/mL (0-1.5); eGFR NON BLACK RACES > 60 (>60)
[2020-04-30 06:30] LABS: CKMB % 0.1 % (<4); CREATINE KINASE 3142 Units/L (39-308)
[2020-04-30] MEDS: K-DUR TAB 20 MEQ PO PRN (07:20)
[2020-04-30] MEDS: TYLENOL #3 TAB (W/CODEINE) PO SCH ×4 (08:48→20:18)
[2020-04-30] MEDS: COZAAR PO SCH ×2 (08:48→20:18)
[2020-04-30] MEDS: SYNTHROID 150 mcg TAB PO SCH (08:48)
[2020-04-30] MEDS: LOVENOX INJ 40 MG SYR SC SCH (08:49)
--- NOTE | 2020-04-30 09:47 | PCM.PROG ---
Progress Note - Progress Note for Day of Date of Exam: 04/30/20 - Subjective Subjective: IS BEING TREATED FOR RHABDOMYOLYSIS, ABNORMAL CARDIAC ENZYMES, FREQUENT FALLS, AND GENERALIZED WEAKNESS. TODAY, HE IS ALERT AND ORIENTED, LYING IN BED ON MORNING ROUNDS. HE CONTINUES WITH COMPLAINTS OF GENERALIZED WEAKNESS AND LOWER BACK PAIN. HE CONTINUES TO BE UNSTEADY ON AMBULAT ION, BUT HE IS SHOWING SLIGHT IMPROVEMENT. ON EXAMINATION, HEART IS REGULAR IN RATE AND RHYTHM. BILATERAL LUNGS ARE CLEAR TO AUSCULTATION. ABDOMEN IS ROUND, SOFT, AND NON-TENDER WITH NORMAL BOWEL SOUNDS NOTED IN ALL QUADRANTS. HIS VITALS THIS MORNING ARE: 98.3-59-20-95%-173/84. LABS WERE OBTAINED. ABNORMAL LAB VALUES INCLUDE THE FOLLOWING: RBC 4.08, HGB 12.8, HCT 37.8, PLT COUNT 119, AST 206, ALT 85, CREATINE KINASE 3644, CK-MB 5.0, CRP 30.70, TOTAL PROTEIN 6.2, ALBUMIN 2.7. HE IS CURRENTLY RECEIVING NS AT 75 ML/HR, LOVENOX 40MG SC DAILY, MIRALAX 17G PO HS, COLACE 200MG PO HS, MILK OF MAGNESIA 30 ML PI BID, TYLENOL #3 QID, COZAAR 50MG PO BID, AND THE POTASSIUM AND MAGNESIUM PROTOCOLS. WE WILL CONTINUE WITH CURRENT PLAN OF CARE TODAY. OTHERWISE, WE PLAN TO FOLLOW UP WITH AM LABS AND CONTINUE TO MONITOR. - Past Medical Family Social History Past Med/Fam/Surg Hx: No changes since H&P Allergies: Allergies Penicillins Allergy (Verified 12/30/19 16:44) - Review of Systems ROS: No change since H&P - Vital Signs and I&O's Vital Signs: Temperature 99.0 F Pulse Rate [Right Brachial] 52 Pulse Rate 84 Respiratory Rate 18 Blood Pressure [Right Arm] 123/80 Blood Pressure [Left Arm] 140/97 Blood Pressure 170/86 O2 Sat by Pulse Oximetry 97 Intake and Output: Intake & Output 04/27/20 04/28/20 04/29/20 04/30/20 11:59 11:59 11:59 11:59 Intake Total 1105 / 1105 1761 / 1761 2510 / 2510 1620 / 1620 Output Total 1000 / 1000 375 / 375 Balance 105 / 105 1386 / 1386 2510 / 2510 1620 / 1620 - Physical Exam Oriented: Normal Eyes: Normal Ear: Normal Nose: Normal Throat: Normal Respiratory: Generalized, Diminished Cardiovascular: Normal : Normal Auscultation: Bowel Sounds: Normal Palpation: Normal Tenderness: Normal Skin: Decreased Turgur Musculoskeletal: Right, Elbow, Leg, Tender Psychiatric: Normal Mood Description: Calm Affect: Normal Speech Pattern: Clear, Appropriate - Laboratory and Diagnostics Result Diagrams: 04/30/20 05:25 04/30/20 05:25 Labs: Laboratory WBC 4.2 X10^3/uL (3.6-10.0) 04/30/20 05:25 RBC 4.12 X10^6/uL (4.7-6.0) L 04/30/20 05:25 Hgb 12.9 g/dL (13.5-18.0) L 04/30/20 05:25 Hct 38.3 % (42.0-54.0) L 04/30/20 05:25 MCV 93.0 fL (80.0-100.0) 04/30/20 05:25 MCH 31.4 pg (27.0-34.0) 04/30/20 05:25 MCHC 33.7 g/dL (33.0-35.0) 04/30/20 05:25 RDW 14.9 % (11.6-16.5) 04/30/20 05:25 Plt Count 117 X10^3/uL (150.0-450.0) L 04/30/20 05:25 MPV 7.3 fL (7.4-11.0) L 04/30/20 05:25 Neut % (Auto) 63.5 % (42.0-75.0) 04/30/20 05:25 Lymph % (Auto) 26.6 % (21.0-51.0) 04/30/20 05:25 [place] % (Auto) 7.7 % (0.0-13.0) 04/30/20 05:25 Eos % (Auto) 1.7 % (0.9-2.9) 04/30/20 05:25 Baso % (Auto) 0.5 % (0.2-1.0) 04/30/20 05:25 Neut # (Auto) 2.6 x10^3/uL (2.2-4.8) 04/30/20 05:25 Lymph # (Auto) 1.1 X10^3/uL (1.3-2.9) L 04/30/20 05:25 [place] # (Auto) 0.3 x10^3/uL (0.3-0.8) 04/30/20 05:25 Eos # (Auto) 0.1 x10^3/uL (0.0-0.2) 04/30/20 05:25 Baso # (Auto) 0.0 X10^3/uL (0.0-0.1) 04/30/20 05:25 Absolute Nucleated RBC 0.0 /100WBC 04/30/20 05:25 PT 13.7 SECONDS (11.8-14.3) 04/27/20 05:15 INR Target Range - 04/27/20 05:15 INR 1.08 (0.8-1.3) 04/27/20 05:15 APTT 29.8 SECONDS (22.9-36.5) 04/27/20 05:15 PTT Comment - 04/27/20 05:15 Sodium 139 mmol/L (136-145) 04/30/20 05:25 Corrected Sodium TNP 04/30/20 05:25 Potassium 3.7 mmol/L (3.5-5.1) 04/30/20 05:25 Chloride 104 mmol/L (98-107) 04/30/20 05:25 Carbon Dioxide 29.8 mmol/L (21-32) 04/30/20 05:25 BUN 10 mg/dL (7-18) 04/30/20 05:25 Creatinine 0.78 mg/dL (0.70-1.30) 04/30/20 05:25 Est GFR (MDRD) Af Amer > 60 (>60) 04/30/20 05:25 Est GFR (MDRD) Non-Af > 60 (>60) 04/30/20 05:25 Glucose 99 mg/dL (65-99) 04/30/20 05:25 POC Glucose (mg/dL) 107 mg/dL (65-99) H 04/29/20 11:59 Calcium 8.9 mg/dL (8.5-10.1) 04/30/20 05:25 Corrected Calcium 9.9 mg/dL (8.5-10.1) 04/30/20 05:25 Magnesium 2.0 mg/dL (1.7-2.9) 04/28/20 04:15 Ferritin 286 ng/mL (26-388) 04/27/20 08:01 Total Bilirubin 0.50 mg/dL (0.2-1.0) 04/30/20 05:25 AST 218 Units/L (15-37) H 04/30/20 05:25 ALT 92 Units/L (12-78) H 04/30/20 05:25 Alkaline Phosphatase 53 Units/L (46-116) 04/30/20 05:25 Creatine Kinase 3142 Units/L (39-308) H 04/30/20 05:25 CK-MB (CK-2) 3.8 ng/mL (0-4.0) 04/30/20 05:25 CK/CKMB % Calc 0.1 % (<4) 04/30/20 05:25 Troponin I 0.03 ng/mL (0-1.5) 04/30/20 05:25 C-Reactive Protein 30.70 mg/L (0-3.0) H 04/29/20 05:10 Total Protein 6.2 g/dL (6.4-8.2) L 04/30/20 05:25 Albumin 2.7 g/dL (3.4-5.0) L 04/30/20 05:25 Globulin 3.5 g/dL (2.5-4.5) 04/30/20 05:25 Albumin/Globulin Ratio 0.8 Ratio (1.1-2.1) L 04/30/20 05:25 Specimen Type Clean catch urine 04/26/20 09:45 Urine Color Yellow (YELLOW) 04/26/20 09:45 Urine Appearance Slightly hazy (CLEAR) 04/26/20 09:45 Urine pH 6.0 (5.0 - 8.0) 04/26/20 09:45 Ur Specific [place] 1.015 (1.000-1.030) 04/26/20 09:45 Urine Protein 2+ (NEGATIVE) 04/26/20 09:45 Urine Glucose (UA) Negative (NEGATIVE) 04/26/20 09:45 Urine Ketones 3+ (NEGATIVE) 04/26/20 09:45 Urine Occult Blood 5+ (NEGATIVE) 04/26/20 09:45 Urine Nitrite Negative (NEGATIVE) 04/26/20 09:45 Urine Bilirubin Negative (NEGATIVE) 04/26/20 09:45 Urine Urobilinogen Normal (NORMAL) 04/26/20 09:45 Ur Leukocyte Esterase Negative (NEGATIVE) 04/26/20 09:45 Urine RBC 5-10 /HPF (0-3) A 04/26/20 09:45 Urine WBC 0-2 /HPF (0-5) 04/26/20 09:45 Ur Squamous Epith Cells Rare /HPF (NEGATIVE) 04/26/20 09:45 Urine Bacteria Trace /HPF (NEGATIVE) 04/26/20 09:45 Hyaline Casts Moderate /LPF (NEGATIVE) 04/26/20 09:45 Ur Culture Indicated? No/not indicated 04/26/20 09:45 Urine Opiates Screen Positive (NEG=<300) 04/26/20 09:45 Urine Methadone Screen Negative (NEG=<300) 04/26/20 09:45 Ur Barbiturates Screen Negative (NEG=<200) 04/26/20 09:45 Ur Phencyclidine Scrn Negative (NEG=<25) 04/26/20 09:45 Ur Amphetamines Screen Negative (NEG=<1000) 04/26/20 09:45 U Benzodiazepines Scrn Negative (NEG=<200) 04/26/20 09:45 Urine Cocaine Screen Negative (NEG=<300) 04/26/20 09:45 U Marijuana (THC) Screen Negative (NEG=<50) 04/26/20 09:45 SARS-CoV-2 (PCR) Negative (NEGATIVE) 04/27/20 10:50 - Plan (1) Rhabdomyolysis Status: Acute Qualifiers: Rhabdomyolysis type: traumatic Encounter type: initial encounter Qualified Code(s): T79.6XXA - Traumatic ischemia of muscle, initial encounter Plan: NS AT 75 ML/HR, LOVENOX 40MG SC DAILY, MIRALAX 17G PO HS, COLACE 200MG PO HS, AND MILK OF MAGNESIA 30 ML PI BID. WE WILL REVIEW HIS HOME MEDICATIONS (2) Abnormal cardiac enzyme level Status: Acute (3) Frequent falls Status: Acute (4) Generalized weakness Status: Acute
--- NOTE | 2020-04-30 09:50 | PCM.PROG ---
Progress Note - Progress Note for Day of Date of Exam: 04/30/20 - Subjective Subjective: IS BEING TREATED FOR RHABDOMYOLYSIS, ABNORMAL CARDIAC ENZYMES, FREQUENT FALLS, AND GENERALIZED WEAKNESS. TODAY, HE IS ALERT AND ORIENTED, LYING IN BED ON MORNING ROUNDS. HE CONTINUES WITH WEAKNESS AND UNSTEADY GAIT, BUT CONTINUES TO REPORT SLIGHT IMPROVEMENT IN SYMPTOMS. PHYSICAL THERAPY IS WORKING WITH PATIENT THROUGHOUT THE DAY. ON EXAMINATION, HEART IS REGULAR IN RATE AND RHYTHM. BILATERAL LUNGS ARE CLEAR TO AUSCULTATION. ABDOMEN IS ROUND, SOFT, AND NON-TENDER WITH NORMAL BOWEL SOUNDS NOTED IN ALL QUADRANTS. HIS VITALS THIS MORNING ARE: 99.0-52-20-97%-140/97. LABS WERE OBTAINED. ABNORMAL LAB VALUES INCLUDE THE FOLLOWING: RBC 4.12, HGB 12.9, HCT 38.3, PLT COUNT 117, AST 218, ALK PHOS 92, CREATINE KINASE 3142, TOTAL PROTEIN 6.2, ALBUMIN 2.7. HE IS CURRENTLY RECEIVING NS AT 75 ML/HR, LOVENOX 40MG SC DAILY, MIRALAX 17G PO HS, COLACE 200MG PO HS, MILK OF MAGNESIA 30 ML PI BID, TYLENOL #3 QID, COZAAR 50MG PO BID, AND THE POTASSIUM AND MAGNESIUM PROTOCOLS. WE WILL CONTINUE WITH CURRENT PLAN OF CARE TODAY. OTHERWISE, WE PLAN TO FOLLOW UP WITH AM LABS AND CONTINUE TO MONITOR. - Past Medical Family Social History Past Med/Fam/Surg Hx: No changes since H&P Allergies: Allergies Penicillins Allergy (Verified 12/30/19 16:44) - Review of Systems ROS: No change since H&P - Vital Signs and I&O's Vital Signs: Temperature 99.0 F Pulse Rate [Right Brachial] 52 Pulse Rate 84 Respiratory Rate 18 Blood Pressure [Right Arm] 123/80 Blood Pressure [Left Arm] 140/97 Blood Pressure 170/86 O2 Sat by Pulse Oximetry 97 Intake and Output: Intake & Output 04/27/20 04/28/20 04/29/20 04/30/20 11:59 11:59 11:59 11:59 Intake Total 1105 / 1105 1761 / 1761 2510 / 2510 1620 / 1620 Output Total 1000 / 1000 375 / 375 Balance 105 / 105 1386 / 1386 2510 / 2510 1620 / 1620 - Physical Exam Oriented: Normal Eyes: Normal Ear: Normal Nose: Normal Throat: Normal Respiratory: Generalized, Diminished Cardiovascular: Normal : Normal Auscultation: Bowel Sounds: Normal Tenderness: Normal Skin: Decreased Turgur Musculoskeletal: Right, Elbow, Leg, Tender Psychiatric: Normal Mood Description: Calm Affect: Normal Speech Pattern: Clear, Appropriate - Laboratory and Diagnostics Result Diagrams: 04/30/20 05:25 04/30/20 05:25 Labs: Laboratory WBC 4.2 X10^3/uL (3.6-10.0) 04/30/20 05:25 RBC 4.12 X10^6/uL (4.7-6.0) L 04/30/20 05:25 Hgb 12.9 g/dL (13.5-18.0) L 04/30/20 05:25 Hct 38.3 % (42.0-54.0) L 04/30/20 05:25 MCV 93.0 fL (80.0-100.0) 04/30/20 05:25 MCH 31.4 pg (27.0-34.0) 04/30/20 05:25 MCHC 33.7 g/dL (33.0-35.0) 04/30/20 05:25 RDW 14.9 % (11.6-16.5) 04/30/20 05:25 Plt Count 117 X10^3/uL (150.0-450.0) L 04/30/20 05:25 MPV 7.3 fL (7.4-11.0) L 04/30/20 05:25 Neut % (Auto) 63.5 % (42.0-75.0) 04/30/20 05:25 Lymph % (Auto) 26.6 % (21.0-51.0) 04/30/20 05:25 [place] % (Auto) 7.7 % (0.0-13.0) 04/30/20 05:25 Eos % (Auto) 1.7 % (0.9-2.9) 04/30/20 05:25 Baso % (Auto) 0.5 % (0.2-1.0) 04/30/20 05:25 Neut # (Auto) 2.6 x10^3/uL (2.2-4.8) 04/30/20 05:25 Lymph # (Auto) 1.1 X10^3/uL (1.3-2.9) L 04/30/20 05:25 [place] # (Auto) 0.3 x10^3/uL (0.3-0.8) 04/30/20 05:25 Eos # (Auto) 0.1 x10^3/uL (0.0-0.2) 04/30/20 05:25 Baso # (Auto) 0.0 X10^3/uL (0.0-0.1) 04/30/20 05:25 Absolute Nucleated RBC 0.0 /100WBC 04/30/20 05:25 PT 13.7 SECONDS (11.8-14.3) 04/27/20 05:15 INR Target Range - 04/27/20 05:15 INR 1.08 (0.8-1.3) 04/27/20 05:15 APTT 29.8 SECONDS (22.9-36.5) 04/27/20 05:15 PTT Comment - 04/27/20 05:15 Sodium 139 mmol/L (136-145) 04/30/20 05:25 Corrected Sodium TNP 04/30/20 05:25 Potassium 3.7 mmol/L (3.5-5.1) 04/30/20 05:25 Chloride 104 mmol/L (98-107) 04/30/20 05:25 Carbon Dioxide 29.8 mmol/L (21-32) 04/30/20 05:25 BUN 10 mg/dL (7-18) 04/30/20 05:25 Creatinine 0.78 mg/dL (0.70-1.30) 04/30/20 05:25 Est GFR (MDRD) Af Amer > 60 (>60) 04/30/20 05:25 Est GFR (MDRD) Non-Af > 60 (>60) 04/30/20 05:25 Glucose 99 mg/dL (65-99) 04/30/20 05:25 POC Glucose (mg/dL) 107 mg/dL (65-99) H 04/29/20 11:59 Calcium 8.9 mg/dL (8.5-10.1) 04/30/20 05:25 Corrected Calcium 9.9 mg/dL (8.5-10.1) 04/30/20 05:25 Magnesium 2.0 mg/dL (1.7-2.9) 04/28/20 04:15 Ferritin 286 ng/mL (26-388) 04/27/20 08:01 Total Bilirubin 0.50 mg/dL (0.2-1.0) 04/30/20 05:25 AST 218 Units/L (15-37) H 04/30/20 05:25 ALT 92 Units/L (12-78) H 04/30/20 05:25 Alkaline Phosphatase 53 Units/L (46-116) 04/30/20 05:25 Creatine Kinase 3142 Units/L (39-308) H 04/30/20 05:25 CK-MB (CK-2) 3.8 ng/mL (0-4.0) 04/30/20 05:25 CK/CKMB % Calc 0.1 % (<4) 04/30/20 05:25 Troponin I 0.03 ng/mL (0-1.5) 04/30/20 05:25 C-Reactive Protein 30.70 mg/L (0-3.0) H 04/29/20 05:10 Total Protein 6.2 g/dL (6.4-8.2) L 04/30/20 05:25 Albumin 2.7 g/dL (3.4-5.0) L 04/30/20 05:25 Globulin 3.5 g/dL (2.5-4.5) 04/30/20 05:25 Albumin/Globulin Ratio 0.8 Ratio (1.1-2.1) L 04/30/20 05:25 Specimen Type Clean catch urine 04/26/20 09:45 Urine Color Yellow (YELLOW) 04/26/20 09:45 Urine Appearance Slightly hazy (CLEAR) 04/26/20 09:45 Urine pH 6.0 (5.0 - 8.0) 04/26/20 09:45 Ur Specific [place] 1.015 (1.000-1.030) 04/26/20 09:45 Urine Protein 2+ (NEGATIVE) 04/26/20 09:45 Urine Glucose (UA) Negative (NEGATIVE) 04/26/20 09:45 Urine Ketones 3+ (NEGATIVE) 04/26/20 09:45 Urine Occult Blood 5+ (NEGATIVE) 04/26/20 09:45 Urine Nitrite Negative (NEGATIVE) 04/26/20 09:45 Urine Bilirubin Negative (NEGATIVE) 04/26/20 09:45 Urine Urobilinogen Normal (NORMAL) 04/26/20 09:45 Ur Leukocyte Esterase Negative (NEGATIVE) 04/26/20 09:45 Urine RBC 5-10 /HPF (0-3) A 04/26/20 09:45 Urine WBC 0-2 /HPF (0-5) 04/26/20 09:45 Ur Squamous Epith Cells Rare /HPF (NEGATIVE) 04/26/20 09:45 Urine Bacteria Trace /HPF (NEGATIVE) 04/26/20 09:45 Hyaline Casts Moderate /LPF (NEGATIVE) 04/26/20 09:45 Ur Culture Indicated? No/not indicated 04/26/20 09:45 Urine Opiates Screen Positive (NEG=<300) 04/26/20 09:45 Urine Methadone Screen Negative (NEG=<300) 04/26/20 09:45 Ur Barbiturates Screen Negative (NEG=<200) 04/26/20 09:45 Ur Phencyclidine Scrn Negative (NEG=<25) 04/26/20 09:45 Ur Amphetamines Screen Negative (NEG=<1000) 04/26/20 09:45 U Benzodiazepines Scrn Negative (NEG=<200) 04/26/20 09:45 Urine Cocaine Screen Negative (NEG=<300) 04/26/20 09:45 U Marijuana (THC) Screen Negative (NEG=<50) 04/26/20 09:45 SARS-CoV-2 (PCR) Negative (NEGATIVE) 04/27/20 10:50 - Plan (1) Rhabdomyolysis Status: Acute Qualifiers: Rhabdomyolysis type: traumatic Encounter type: initial encounter Qualified Code(s): T79.6XXA - Traumatic ischemia of muscle, initial encounter Plan: NS AT 75 ML/HR, LOVENOX 40MG SC DAILY, MIRALAX 17G PO HS, COLACE 200MG PO HS, AND MILK OF MAGNESIA 30 ML PI BID. WE WILL REVIEW HIS HOME MEDICATIONS (2) Abnormal cardiac enzyme level Status: Acute (3) Frequent falls Status: Acute (4) Generalized weakness Status: Acute
[2020-04-30] MEDS: MILK OF MAGNESIA PO SCH ×2 (12:15→21:49)
[2020-04-30] MEDS: NS 1000 ML 1,000 ML IV SCH ×3 (12:16→21:57)
[2020-04-30] MEDS: COLACE CAP 100 MG PO SCH ×2 (20:18→21:59)
[2020-04-30] MEDS: DESYREL PO SCH (20:18)
[2020-04-30] MEDS: MIRALAX POWDER (1 DOSE 17 G) PO SCH (21:49)
[2020-05-01] MEDS: NS 1000 ML 1,000 ML IV SCH ×2 (03:04→13:26)
[2020-05-01 06:46] LABS: BASOPHILS % (AUTO) 0.6 % (0.2-1.0); EOSINOPHILS # (AUTO) 0.1 x10^3/uL (0.0-0.2); EOSINOPHILS % (AUTO) 1.9 % (0.9-2.9); HEMATOCRIT 39.7 % (42.0-54.0); HEMOGLOBIN 13.2 g/dL (13.5-18.0); LYMPHOCYTES # (AUTO) 1.2 X10^3/uL (1.3-2.9); LYMPHOCYTES % (AUTO) 25.9 % (21.0-51.0); MEAN CORPUSCULAR HEMOGLOBIN 31.1 pg (27.0-34.0); MEAN CORPUSCULAR HGB CONC 33.4 g/dL (33.0-35.0); MEAN CORPUSCULAR VOLUME 93.3 fL (80.0-100.0); MEAN PLATELET VOLUME 7.9 fL (7.4-11.0); MONOCYTES # (AUTO) 0.4 x10^3/uL (0.3-0.8); MONOCYTES % (AUTO) 8.2 % (0.0-13.0); NEUTROPHILS % (AUTO) 63.4 % (42.0-75.0); PLATELET COUNT 123 X10^3/uL (150.0-450.0); RED BLOOD COUNT 4.25 X10^6/uL (4.7-6.0); RED CELL DISTRIBUTION WIDTH 14.6 % (11.6-16.5); WHITE BLOOD COUNT 4.7 X10^3/uL (3.6-10.0)
[2020-05-01 07:01] LABS: ALANINE AMINOTRANSFERASE 94 Units/L (12-78); ALBUMIN 2.9 g/dL (3.4-5.0); ALKALINE PHOSPHATASE 55 Units/L (46-116); ASPARTATE AMINO TRANSFERASE 193 Units/L (15-37); BLOOD UREA NITROGEN 12 mg/dL (7-18); CALCIUM 8.6 mg/dL (8.5-10.1); CARBON DIOXIDE 27.3 mmol/L (21-32); CHLORIDE 106 mmol/L (98-107); COR CA(FOR HYPOALB) 9.5 mg/dL (8.5-10.1); CREATINE KINASE MB 2.9 ng/mL (0-4.0); CREATININE 0.87 mg/dL (0.70-1.30); SODIUM 140 mmol/L (136-145); TOTAL PROTEIN 6.5 g/dL (6.4-8.2); TROPONIN I 0.02 ng/mL (0-1.5); eGFR NON BLACK RACES > 60 (>60)
[2020-05-01 07:02] LABS: CKMB % 0.2 % (<4); CREATINE KINASE 1698 Units/L (39-308)
[2020-05-01] MEDS: SYNTHROID 150 mcg TAB PO SCH (08:37)
[2020-05-01] MEDS: TYLENOL #3 TAB (W/CODEINE) PO SCH ×4 (08:38→20:53)
[2020-05-01] MEDS: COZAAR PO SCH ×2 (08:38→20:51)
[2020-05-01] MEDS: MILK OF MAGNESIA PO SCH ×2 (08:47→20:53)
[2020-05-01] MEDS: LOVENOX INJ 40 MG SYR SC SCH (08:48)
[2020-05-01] MEDS: COLACE CAP 100 MG PO SCH (20:51)
[2020-05-01] MEDS: DESYREL PO SCH (20:52)
[2020-05-01] MEDS: MIRALAX POWDER (1 DOSE 17 G) PO SCH (20:53)
[2020-05-02] MEDS: NS 1000 ML 1,000 ML IV SCH ×3 (03:09→13:30)
[2020-05-02 06:30] LABS: BASOPHILS % (AUTO) 0.5 % (0.2-1.0); EOSINOPHILS # (AUTO) 0.1 x10^3/uL (0.0-0.2); EOSINOPHILS % (AUTO) 1.5 % (0.9-2.9); HEMATOCRIT 38.8 % (42.0-54.0); LYMPHOCYTES # (AUTO) 1.6 X10^3/uL (1.3-2.9); LYMPHOCYTES % (AUTO) 31.4 % (21.0-51.0); MEAN CORPUSCULAR HEMOGLOBIN 31.1 pg (27.0-34.0); MEAN CORPUSCULAR HGB CONC 33.5 g/dL (33.0-35.0); MEAN PLATELET VOLUME 7.4 fL (7.4-11.0); MONOCYTES # (AUTO) 0.4 x10^3/uL (0.3-0.8); MONOCYTES % (AUTO) 7.7 % (0.0-13.0); NEUTROPHILS % (AUTO) 58.9 % (42.0-75.0); PLATELET COUNT 137 X10^3/uL (150.0-450.0); RED BLOOD COUNT 4.17 X10^6/uL (4.7-6.0); RED CELL DISTRIBUTION WIDTH 14.8 % (11.6-16.5); WHITE BLOOD COUNT 5.1 X10^3/uL (3.6-10.0)
[2020-05-02 06:56] LABS: ALANINE AMINOTRANSFERASE 102 Units/L (12-78); ALBUMIN 2.9 g/dL (3.4-5.0); ALKALINE PHOSPHATASE 56 Units/L (46-116); ASPARTATE AMINO TRANSFERASE 151 Units/L (15-37); BLOOD UREA NITROGEN 12 mg/dL (7-18); CALCIUM 8.6 mg/dL (8.5-10.1); CARBON DIOXIDE 28.7 mmol/L (21-32); CHLORIDE 105 mmol/L (98-107); CKMB % 0.4 % (<4); COR CA(FOR HYPOALB) 9.5 mg/dL (8.5-10.1); CREATINE KINASE 785 Units/L (39-308); CREATINE KINASE MB 2.8 ng/mL (0-4.0); CREATININE 0.92 mg/dL (0.70-1.30); SODIUM 139 mmol/L (136-145); TOTAL PROTEIN 6.4 g/dL (6.4-8.2); TROPONIN I 0.03 ng/mL (0-1.5); eGFR NON BLACK RACES > 60 (>60)
[2020-05-02] MEDS: TYLENOL #3 TAB (W/CODEINE) PO SCH ×4 (08:20→20:11)
[2020-05-02] MEDS: SYNTHROID 150 mcg TAB PO SCH (08:20)
[2020-05-02] MEDS: MILK OF MAGNESIA PO SCH ×2 (08:21→20:09)
[2020-05-02] MEDS: COZAAR PO SCH ×2 (08:22→20:14)
[2020-05-02] MEDS: LOVENOX INJ 40 MG SYR SC SCH (08:23)
[2020-05-02] MEDS: COLACE CAP 100 MG PO SCH (20:08)
[2020-05-02] MEDS: DESYREL PO SCH (20:08)
[2020-05-02] MEDS: MIRALAX POWDER (1 DOSE 17 G) PO SCH (20:09)
[2020-05-03] MEDS: NS 1000 ML 1,000 ML IV SCH (03:08)
[2020-05-03 06:31] LABS: BASOPHILS % (AUTO) 0.9 % (0.2-1.0); EOSINOPHILS # (AUTO) 0.1 x10^3/uL (0.0-0.2); EOSINOPHILS % (AUTO) 1.3 % (0.9-2.9); HEMATOCRIT 38.8 % (42.0-54.0); HEMOGLOBIN 13.2 g/dL (13.5-18.0); LYMPHOCYTES # (AUTO) 1.4 X10^3/uL (1.3-2.9); LYMPHOCYTES % (AUTO) 25.5 % (21.0-51.0); MEAN CORPUSCULAR HEMOGLOBIN 31.6 pg (27.0-34.0); MEAN CORPUSCULAR HGB CONC 34.1 g/dL (33.0-35.0); MEAN CORPUSCULAR VOLUME 92.6 fL (80.0-100.0); MEAN PLATELET VOLUME 7.5 fL (7.4-11.0); MONOCYTES # (AUTO) 0.4 x10^3/uL (0.3-0.8); NEUTROPHILS # (AUTO) 3.5 x10^3/uL (2.2-4.8); NEUTROPHILS % (AUTO) 64.3 % (42.0-75.0); PLATELET COUNT 149 X10^3/uL (150.0-450.0); RED BLOOD COUNT 4.19 X10^6/uL (4.7-6.0); RED CELL DISTRIBUTION WIDTH 15.2 % (11.6-16.5); WHITE BLOOD COUNT 5.5 X10^3/uL (3.6-10.0)
[2020-05-03 06:58] LABS: ALANINE AMINOTRANSFERASE 91 Units/L (12-78); ALBUMIN 2.8 g/dL (3.4-5.0); ALKALINE PHOSPHATASE 56 Units/L (46-116); ASPARTATE AMINO TRANSFERASE 101 Units/L (15-37); BLOOD UREA NITROGEN 12 mg/dL (7-18); CALCIUM 8.7 mg/dL (8.5-10.1); CHLORIDE 107 mmol/L (98-107); CKMB % 0.5 % (<4); COR CA(FOR HYPOALB) 9.7 mg/dL (8.5-10.1); CREATINE KINASE 372 Units/L (39-308); CREATINE KINASE MB 1.7 ng/mL (0-4.0); CREATININE 0.89 mg/dL (0.70-1.30); SODIUM 140 mmol/L (136-145); TOTAL PROTEIN 6.2 g/dL (6.4-8.2); TROPONIN I 0.02 ng/mL (0-1.5); eGFR NON BLACK RACES > 60 (>60)
[2020-05-03] MEDS: COZAAR PO SCH (08:18)
[2020-05-03] MEDS: LOVENOX INJ 40 MG SYR SC SCH (08:19)
[2020-05-03] MEDS: MILK OF MAGNESIA PO SCH (08:23)
[2020-05-03] MEDS: TYLENOL #3 TAB (W/CODEINE) PO SCH ×2 (08:24→14:13)
[2020-05-03] MEDS: SYNTHROID 150 mcg TAB PO SCH (08:24)
--- NOTE | 2020-05-03 11:02 | PCM.PROG ---
Progress Note - Progress Note for Day of Date of Exam: 05/01/20 - Subjective Subjective: IS BEING TREATED FOR RHABDOMYOLYSIS, ABNORMAL CARDIAC ENZYMES, FREQUENT FALLS, AND GENERALIZED WEAKNESS. TODAY, HE IS ALERT AND ORIENTED, LYING IN BED ON MORNING ROUNDS. HE CONTINUES WITH WEAKNESS AND UNSTEADY GAIT, BUT CONTINUES TO REPORT SLIGHT IMPROVEMENT IN SYMPTOMS. PHYSICAL THERAPY IS WORKING WITH PATIENT THROUGHOUT THE DAY. THEY REPORT THAT HE IS COOPERATING WELL. ON EXAMINATION, HEART IS REGULAR IN RATE AND RHYTHM. BILATERAL LUNGS ARE CLEAR TO AUSCULTATION. ABDOMEN IS ROUND, SOFT, AND NON-TENDER WITH NORMAL BOWEL SOUNDS NOTED IN ALL QUADRANTS. HIS VITALS THIS MORNING ARE: 98.6-66-20-98%RA-144/80. LABS WERE OBTAINED. ABNORMAL LAB VALUES INCLUDE THE FOLLOWING: RBC 4.25, HGB 13.2, HCT 39.7, PLT COUNT 123, GLUCOSE 107, AST 193, ALT 94, CREATINE KINASE 1698, ALBUMIN 2.9. HE IS CURRENTLY RECEIVING NS AT 75 ML/HR, LOVENOX 40MG SC DAILY, MIRALAX 17G PO HS, COLACE 200MG PO HS, MILK OF MAGNESIA 30 ML PI BID, TYLENOL #3 QID, COZAAR 50MG PO BID, AND THE POTASSIUM AND MAGNESIUM PROTOCOLS. WE WILL CONTINUE WITH IV HYDRATION, PHYSICAL THERAPY, AND CURRENT PLAN OF CARE TODAY. OTHERWISE, WE PLAN TO FOLLOW UP WITH AM LABS AND CONTINUE TO MONITOR. - Past Medical Family Social History Past Med/Fam/Surg Hx: No changes since H&P Allergies: Allergies Penicillins Allergy (Verified 12/30/19 16:44) - Review of Systems ROS: No change since H&P - Vital Signs and I&O's Vital Signs: Temperature 98.8 F Pulse Rate [Right Brachial] 52 Pulse Rate 84 Respiratory Rate 20 Blood Pressure [Right Arm] 136/73 Blood Pressure [Left Arm] 162/77 Blood Pressure 170/86 O2 Sat by Pulse Oximetry 100 Intake and Output: Intake & Output 04/30/20 05/01/20 05/02/20 05/03/20 11:59 11:59 11:59 11:59 Intake Total 1620 / 1620 2160 / 2160 2400 / 2400 2275 / 2275 Output Total 1000 / 1000 1450 / 1450 1775 / 1775 Balance 1620 / 1620 1160 / 1160 950 / 950 500 / 500 - Physical Exam Oriented: Normal Eyes: Normal Ear: Normal Nose: Normal Throat: Normal Respiratory: Generalized, Diminished Cardiovascular: Normal : Normal Auscultation: Bowel Sounds: Normal Palpation: Normal Tenderness: Normal Skin: Normal Musculoskeletal: Right, Elbow, Leg, Tender Psychiatric: Normal Mood Description: Calm Affect: Normal Speech Pattern: Clear, Appropriate - Laboratory and Diagnostics Result Diagrams: 05/03/20 05:30 05/03/20 05:30 Labs: Laboratory WBC 5.5 X10^3/uL (3.6-10.0) 05/03/20 05:30 RBC 4.19 X10^6/uL (4.7-6.0) L 05/03/20 05:30 Hgb 13.2 g/dL (13.5-18.0) L 05/03/20 05:30 Hct 38.8 % (42.0-54.0) L 05/03/20 05:30 MCV 92.6 fL (80.0-100.0) 05/03/20 05:30 MCH 31.6 pg (27.0-34.0) 05/03/20 05:30 MCHC 34.1 g/dL (33.0-35.0) 05/03/20 05:30 RDW 15.2 % (11.6-16.5) 05/03/20 05:30 Plt Count 149 X10^3/uL (150.0-450.0) L 05/03/20 05:30 MPV 7.5 fL (7.4-11.0) 05/03/20 05:30 Neut % (Auto) 64.3 % (42.0-75.0) 05/03/20 05:30 Lymph % (Auto) 25.5 % (21.0-51.0) 05/03/20 05:30 [place] % (Auto) 8.0 % (0.0-13.0) 05/03/20 05:30 Eos % (Auto) 1.3 % (0.9-2.9) 05/03/20 05:30 Baso % (Auto) 0.9 % (0.2-1.0) 05/03/20 05:30 Neut # (Auto) 3.5 x10^3/uL (2.2-4.8) 05/03/20 05:30 Lymph # (Auto) 1.4 X10^3/uL (1.3-2.9) 05/03/20 05:30 [place] # (Auto) 0.4 x10^3/uL (0.3-0.8) 05/03/20 05:30 Eos # (Auto) 0.1 x10^3/uL (0.0-0.2) 05/03/20 05:30 Baso # (Auto) 0.0 X10^3/uL (0.0-0.1) 05/03/20 05:30 Absolute Nucleated RBC 0.1 /100WBC 05/03/20 05:30 PT 13.7 SECONDS (11.8-14.3) 04/27/20 05:15 INR Target Range - 04/27/20 05:15 INR 1.08 (0.8-1.3) 04/27/20 05:15 APTT 29.8 SECONDS (22.9-36.5) 04/27/20 05:15 PTT Comment - 04/27/20 05:15 Sodium 140 mmol/L (136-145) 05/03/20 05:30 Corrected Sodium TNP 05/03/20 05:30 Potassium 3.9 mmol/L (3.5-5.1) 05/03/20 05:30 Chloride 107 mmol/L (98-107) 05/03/20 05:30 Carbon Dioxide 25.0 mmol/L (21-32) 05/03/20 05:30 BUN 12 mg/dL (7-18) 05/03/20 05:30 Creatinine 0.89 mg/dL (0.70-1.30) 05/03/20 05:30 Est GFR (MDRD) Af Amer > 60 (>60) 05/03/20 05:30 Est GFR (MDRD) Non-Af > 60 (>60) 05/03/20 05:30 Glucose 104 mg/dL (65-99) H 05/03/20 05:30 POC Glucose (mg/dL) 107 mg/dL (65-99) H 04/29/20 11:59 Calcium 8.7 mg/dL (8.5-10.1) 05/03/20 05:30 Corrected Calcium 9.7 mg/dL (8.5-10.1) 05/03/20 05:30 Magnesium 2.0 mg/dL (1.7-2.9) 04/28/20 04:15 Ferritin 286 ng/mL (26-388) 04/27/20 08:01 Total Bilirubin 0.40 mg/dL (0.2-1.0) 05/03/20 05:30 AST 101 Units/L (15-37) H 05/03/20 05:30 ALT 91 Units/L (12-78) H 05/03/20 05:30 Alkaline Phosphatase 56 Units/L (46-116) 05/03/20 05:30 Creatine Kinase 372 Units/L (39-308) H 05/03/20 05:30 CK-MB (CK-2) 1.7 ng/mL (0-4.0) 05/03/20 05:30 CK/CKMB % Calc 0.5 % (<4) 05/03/20 05:30 Troponin I 0.02 ng/mL (0-1.5) 05/03/20 05:30 C-Reactive Protein 30.70 mg/L (0-3.0) H 04/29/20 05:10 Total Protein 6.2 g/dL (6.4-8.2) L 05/03/20 05:30 Albumin 2.8 g/dL (3.4-5.0) L 05/03/20 05:30 Globulin 3.4 g/dL (2.5-4.5) 05/03/20 05:30 Albumin/Globulin Ratio 0.8 Ratio (1.1-2.1) L 05/03/20 05:30 Specimen Type Clean catch urine 04/26/20 09:45 Urine Color Yellow (YELLOW) 04/26/20 09:45 Urine Appearance Slightly hazy (CLEAR) 04/26/20 09:45 Urine pH 6.0 (5.0 - 8.0) 04/26/20 09:45 Ur Specific [place] 1.015 (1.000-1.030) 04/26/20 09:45 Urine Protein 2+ (NEGATIVE) 04/26/20 09:45 Urine Glucose (UA) Negative (NEGATIVE) 04/26/20 09:45 Urine Ketones 3+ (NEGATIVE) 04/26/20 09:45 Urine Occult Blood 5+ (NEGATIVE) 04/26/20 09:45 Urine Nitrite Negative (NEGATIVE) 04/26/20 09:45 Urine Bilirubin Negative (NEGATIVE) 04/26/20 09:45 Urine Urobilinogen Normal (NORMAL) 04/26/20 09:45 Ur Leukocyte Esterase Negative (NEGATIVE) 04/26/20 09:45 Urine RBC 5-10 /HPF (0-3) A 04/26/20 09:45 Urine WBC 0-2 /HPF (0-5) 04/26/20 09:45 Ur Squamous Epith Cells Rare /HPF (NEGATIVE) 04/26/20 09:45 Urine Bacteria Trace /HPF (NEGATIVE) 04/26/20 09:45 Hyaline Casts Moderate /LPF (NEGATIVE) 04/26/20 09:45 Ur Culture Indicated? No/not indicated 04/26/20 09:45 Urine Opiates Screen Positive (NEG=<300) 04/26/20 09:45 Urine Methadone Screen Negative (NEG=<300) 04/26/20 09:45 Ur Barbiturates Screen Negative (NEG=<200) 04/26/20 09:45 Ur Phencyclidine Scrn Negative (NEG=<25) 04/26/20 09:45 Ur Amphetamines Screen Negative (NEG=<1000) 04/26/20 09:45 U Benzodiazepines Scrn Negative (NEG=<200) 04/26/20 09:45 Urine Cocaine Screen Negative (NEG=<300) 04/26/20 09:45 U Marijuana (THC) Screen Negative (NEG=<50) 04/26/20 09:45 SARS-CoV-2 (PCR) Negative (NEGATIVE) 04/27/20 10:50 - Plan (1) Rhabdomyolysis Status: Acute Qualifiers: Rhabdomyolysis type: traumatic Encounter type: initial encounter Qualified Code(s): T79.6XXA - Traumatic ischemia of muscle, initial encounter Plan: NS AT 75 ML/HR, LOVENOX 40MG SC DAILY, MIRALAX 17G PO HS, COLACE 200MG PO HS, AND MILK OF MAGNESIA 30 ML PI BID. WE WILL REVIEW HIS HOME MEDICATIONS (2) Abnormal cardiac enzyme level Status: Acute (3) Frequent falls Status: Acute (4) Generalized weakness Status: Acute
--- NOTE | 2020-05-03 11:05 | PCM.PROG ---
Progress Note - Progress Note for Day of Date of Exam: 05/02/20 - Subjective Subjective: IS BEING TREATED FOR RHABDOMYOLYSIS, ABNORMAL CARDIAC ENZYMES, FREQUENT FALLS, AND GENERALIZED WEAKNESS. TODAY, HE IS ALERT AND ORIENTED, LYING IN BED ON MORNING ROUNDS. HE CONTINUES WITH WEAKNESS AND UNSTEADY GAIT, BUT CONTINUES TO REPORT SLIGHT IMPROVEMENT IN SYMPTOMS. PHYSICAL THERAPY IS WORKING WITH PATIENT THROUGHOUT THE DAY. THEY REPORT THAT HE IS MORE STEADY ON HIS FEET TODAY AND IS SHOWING IMPROVEMENT IN STRENGTH. ON EXAMINATION, HEART IS REGULAR IN RATE AND RHYTHM. BILATERAL LUNGS ARE CLEAR TO AUSCULTATION. ABDOMEN IS ROUND, SOFT, AND NON-TENDER WITH NORMAL BOWEL SOUNDS NOTED IN ALL QUADRANTS. HIS VITALS THIS MORNING ARE: 98.3-58-20-98%CPAP-152/78. LABS WERE OBTAINED. ABNORMAL LAB VALUES INCLUDE THE FOLLOWING: RBC 4.17, HGB 13.0, HCT 38.8, PLT COUNT 137, GLUCOSE 102, AST 151, ALT 102, CREATINE KINASE 785, ALBUMIN 2.9. HE IS CURRENTLY RECEIVING NS AT 75 ML/HR, LOVENOX 40MG SC DAILY, MIRALAX 17G PO HS, COLACE 200MG PO HS, MILK OF MAGNESIA 30 ML PI BID, TYLENOL #3 QID, COZAAR 50MG PO BID, AND THE POTASSIUM AND MAGNESIUM PROTOCOLS. WE WILL CONTINUE WITH IV HYDRATION, PHYSICAL THERAPY, AND CURRENT PLAN OF CARE TODAY. OTHERWISE, WE PLAN TO FOLLOW UP WITH AM LABS AND CONTINUE TO MONITOR. - Past Medical Family Social History Past Med/Fam/Surg Hx: No changes since H&P Allergies: Allergies Penicillins Allergy (Verified 12/30/19 16:44) - Review of Systems ROS: No change since H&P - Vital Signs and I&O's Vital Signs: Temperature 98.8 F Pulse Rate [Right Brachial] 52 Pulse Rate 84 Respiratory Rate 20 Blood Pressure [Right Arm] 136/73 Blood Pressure [Left Arm] 162/77 Blood Pressure 170/86 O2 Sat by Pulse Oximetry 100 Intake and Output: Intake & Output 04/30/20 05/01/20 05/02/20 05/03/20 11:59 11:59 11:59 11:59 Intake Total 1620 / 1620 2160 / 2160 2400 / 2400 2275 / 2275 Output Total 1000 / 1000 1450 / 1450 1775 / 1775 Balance 1620 / 1620 1160 / 1160 950 / 950 500 / 500 - Physical Exam Oriented: Normal Eyes: Normal Ear: Normal Nose: Normal Throat: Normal Respiratory: Generalized, Diminished Cardiovascular: Normal : Normal Auscultation: Bowel Sounds: Normal Palpation: Normal Tenderness: Normal Skin: Normal Musculoskeletal: Right, Elbow, Leg, Tender Psychiatric: Normal Mood Description: Calm Affect: Normal Speech Pattern: Clear, Appropriate - Laboratory and Diagnostics Result Diagrams: 05/03/20 05:30 05/03/20 05:30 Labs: Laboratory WBC 5.5 X10^3/uL (3.6-10.0) 05/03/20 05:30 RBC 4.19 X10^6/uL (4.7-6.0) L 05/03/20 05:30 Hgb 13.2 g/dL (13.5-18.0) L 05/03/20 05:30 Hct 38.8 % (42.0-54.0) L 05/03/20 05:30 MCV 92.6 fL (80.0-100.0) 05/03/20 05:30 MCH 31.6 pg (27.0-34.0) 05/03/20 05:30 MCHC 34.1 g/dL (33.0-35.0) 05/03/20 05:30 RDW 15.2 % (11.6-16.5) 05/03/20 05:30 Plt Count 149 X10^3/uL (150.0-450.0) L 05/03/20 05:30 MPV 7.5 fL (7.4-11.0) 05/03/20 05:30 Neut % (Auto) 64.3 % (42.0-75.0) 05/03/20 05:30 Lymph % (Auto) 25.5 % (21.0-51.0) 05/03/20 05:30 [place] % (Auto) 8.0 % (0.0-13.0) 05/03/20 05:30 Eos % (Auto) 1.3 % (0.9-2.9) 05/03/20 05:30 Baso % (Auto) 0.9 % (0.2-1.0) 05/03/20 05:30 Neut # (Auto) 3.5 x10^3/uL (2.2-4.8) 05/03/20 05:30 Lymph # (Auto) 1.4 X10^3/uL (1.3-2.9) 05/03/20 05:30 [place] # (Auto) 0.4 x10^3/uL (0.3-0.8) 05/03/20 05:30 Eos # (Auto) 0.1 x10^3/uL (0.0-0.2) 05/03/20 05:30 Baso # (Auto) 0.0 X10^3/uL (0.0-0.1) 05/03/20 05:30 Absolute Nucleated RBC 0.1 /100WBC 05/03/20 05:30 PT 13.7 SECONDS (11.8-14.3) 04/27/20 05:15 INR Target Range - 04/27/20 05:15 INR 1.08 (0.8-1.3) 04/27/20 05:15 APTT 29.8 SECONDS (22.9-36.5) 04/27/20 05:15 PTT Comment - 04/27/20 05:15 Sodium 140 mmol/L (136-145) 05/03/20 05:30 Corrected Sodium TNP 05/03/20 05:30 Potassium 3.9 mmol/L (3.5-5.1) 05/03/20 05:30 Chloride 107 mmol/L (98-107) 05/03/20 05:30 Carbon Dioxide 25.0 mmol/L (21-32) 05/03/20 05:30 BUN 12 mg/dL (7-18) 05/03/20 05:30 Creatinine 0.89 mg/dL (0.70-1.30) 05/03/20 05:30 Est GFR (MDRD) Af Amer > 60 (>60) 05/03/20 05:30 Est GFR (MDRD) Non-Af > 60 (>60) 05/03/20 05:30 Glucose 104 mg/dL (65-99) H 05/03/20 05:30 POC Glucose (mg/dL) 107 mg/dL (65-99) H 04/29/20 11:59 Calcium 8.7 mg/dL (8.5-10.1) 05/03/20 05:30 Corrected Calcium 9.7 mg/dL (8.5-10.1) 05/03/20 05:30 Magnesium 2.0 mg/dL (1.7-2.9) 04/28/20 04:15 Ferritin 286 ng/mL (26-388) 04/27/20 08:01 Total Bilirubin 0.40 mg/dL (0.2-1.0) 05/03/20 05:30 AST 101 Units/L (15-37) H 05/03/20 05:30 ALT 91 Units/L (12-78) H 05/03/20 05:30 Alkaline Phosphatase 56 Units/L (46-116) 05/03/20 05:30 Creatine Kinase 372 Units/L (39-308) H 05/03/20 05:30 CK-MB (CK-2) 1.7 ng/mL (0-4.0) 05/03/20 05:30 CK/CKMB % Calc 0.5 % (<4) 05/03/20 05:30 Troponin I 0.02 ng/mL (0-1.5) 05/03/20 05:30 C-Reactive Protein 30.70 mg/L (0-3.0) H 04/29/20 05:10 Total Protein 6.2 g/dL (6.4-8.2) L 05/03/20 05:30 Albumin 2.8 g/dL (3.4-5.0) L 05/03/20 05:30 Globulin 3.4 g/dL (2.5-4.5) 05/03/20 05:30 Albumin/Globulin Ratio 0.8 Ratio (1.1-2.1) L 05/03/20 05:30 Specimen Type Clean catch urine 04/26/20 09:45 Urine Color Yellow (YELLOW) 04/26/20 09:45 Urine Appearance Slightly hazy (CLEAR) 04/26/20 09:45 Urine pH 6.0 (5.0 - 8.0) 04/26/20 09:45 Ur Specific [place] 1.015 (1.000-1.030) 04/26/20 09:45 Urine Protein 2+ (NEGATIVE) 04/26/20 09:45 Urine Glucose (UA) Negative (NEGATIVE) 04/26/20 09:45 Urine Ketones 3+ (NEGATIVE) 04/26/20 09:45 Urine Occult Blood 5+ (NEGATIVE) 04/26/20 09:45 Urine Nitrite Negative (NEGATIVE) 04/26/20 09:45 Urine Bilirubin Negative (NEGATIVE) 04/26/20 09:45 Urine Urobilinogen Normal (NORMAL) 04/26/20 09:45 Ur Leukocyte Esterase Negative (NEGATIVE) 04/26/20 09:45 Urine RBC 5-10 /HPF (0-3) A 04/26/20 09:45 Urine WBC 0-2 /HPF (0-5) 04/26/20 09:45 Ur Squamous Epith Cells Rare /HPF (NEGATIVE) 04/26/20 09:45 Urine Bacteria Trace /HPF (NEGATIVE) 04/26/20 09:45 Hyaline Casts Moderate /LPF (NEGATIVE) 04/26/20 09:45 Ur Culture Indicated? No/not indicated 04/26/20 09:45 Urine Opiates Screen Positive (NEG=<300) 04/26/20 09:45 Urine Methadone Screen Negative (NEG=<300) 04/26/20 09:45 Ur Barbiturates Screen Negative (NEG=<200) 04/26/20 09:45 Ur Phencyclidine Scrn Negative (NEG=<25) 04/26/20 09:45 Ur Amphetamines Screen Negative (NEG=<1000) 04/26/20 09:45 U Benzodiazepines Scrn Negative (NEG=<200) 04/26/20 09:45 Urine Cocaine Screen Negative (NEG=<300) 04/26/20 09:45 U Marijuana (THC) Screen Negative (NEG=<50) 04/26/20 09:45 SARS-CoV-2 (PCR) Negative (NEGATIVE) 04/27/20 10:50 - Plan (1) Rhabdomyolysis Status: Acute Qualifiers: Rhabdomyolysis type: traumatic Encounter type: initial encounter Qualified Code(s): T79.6XXA - Traumatic ischemia of muscle, initial encounter Plan: NS AT 75 ML/HR, LOVENOX 40MG SC DAILY, MIRALAX 17G PO HS, COLACE 200MG PO HS, AND MILK OF MAGNESIA 30 ML PI BID. WE WILL REVIEW HIS HOME MEDICATIONS (2) Abnormal cardiac enzyme level Status: Acute (3) Frequent falls Status: Acute (4) Generalized weakness Status: Acute
[2020-05-03 12:29] VITALS: BP 135/63
== END 2020-05-03 14:00 | disposition home health service (06) | DRG 558 ==
LOC: ER 09:12 → MED/SURG 13:29
PROVIDERS: ADMIT Internal Medicine; ATTEND Internal Medicine

== ENCOUNTER 2022-04-09 17:06 | Observation (INO) ==
--- NOTE | 2022-04-09 20:10 | CT ---
HISTORYWEAKNESS, FREQUENT FALLSSTUDYBRAIN W/O CONCOMPARISONSeptember 2019TECHNIQUEAxial non-contrast images of the head were obtained with coronal and sagittal reformats provided.Radiation dose: 1435.80 mGy-cm total DLPFINDINGSNo abnormal areas of acute attenuation in the brain parenchyma.Thao-white differentiation remains intact.No intracranial, extra-axial, fluid collection.No hemorrhage.Periventricular chronic microvascular disease.No mass, mass effect or midline shift.Age related brain parenchymal global atrophy.No ventriculomegaly.No acute fracture.Sinuses are well aerated.Mastoid air cells are well aerated.Globes and intra-orbital contents are unremarkable.IMPRESSIONNo acute intracranial abnormality identified.Electronically signed by: Rashid Anglin (Apr 09, 2022 20:09:04)
[2022-04-09 20:26] LABS: BASOPHILS # (AUTO) 0.1 X10^3/uL (0.0-0.1); BASOPHILS % (AUTO) 0.4 % (0.2-1.0); HEMATOCRIT 36.8 % (42.0-54.0); HEMOGLOBIN 12.7 g/dL (13.5-18.0); LYMPHOCYTES % (AUTO) 7.4 % (21.0-51.0); MEAN CORPUSCULAR HEMOGLOBIN 31.2 pg (27.0-34.0); MEAN CORPUSCULAR HGB CONC 34.6 g/dL (33.0-35.0); MEAN PLATELET VOLUME 7.4 fL (7.4-11.0); MONOCYTES # (AUTO) 1.1 x10^3/uL (0.3-0.8); MONOCYTES % (AUTO) 7.7 % (0.0-13.0); NEUTROPHILS # (AUTO) 11.6 x10^3/uL (2.2-4.8); NEUTROPHILS % (AUTO) 84.5 % (42.0-75.0); RED BLOOD COUNT 4.09 X10^6/uL (4.7-6.0); RED CELL DISTRIBUTION WIDTH 13.9 % (11.6-16.5); WHITE BLOOD COUNT 13.8 X10^3/uL (3.6-10.0)
[2022-04-09 20:48] LABS: ALANINE AMINOTRANSFERASE 67 Units/L (12-78); ALBUMIN 2.9 g/dL (3.4-5.0); ALKALINE PHOSPHATASE 82 Units/L (46-116); ASPARTATE AMINO TRANSFERASE 64 Units/L (15-37); BLOOD UREA NITROGEN 17 mg/dL (7-18); CALCIUM 8.5 mg/dL (8.5-10.1); CARBON DIOXIDE 27.9 mmol/L (21-32); CHLORIDE 97 mmol/L (98-107); COR CA(FOR HYPOALB) 9.4 mg/dL (8.5-10.1); CREATINE KINASE 496 Units/L (39-308); CREATININE 1.07 mg/dL (0.70-1.30); SODIUM 136 mmol/L (136-145); TOTAL PROTEIN 7.6 g/dL (6.4-8.2); eGFR NON BLACK RACES > 60 (>60)
[2022-04-09 21:18] LABS: BILIRUBIN,URINE NEGATIVE (NEGATIVE); BLOOD/HEMOGLOBIN,URINE 5+ (NEGATIVE); GLUCOSE, URINE NEGATIVE (NEGATIVE); KETONES,URINE 3+ (NEGATIVE); LEUKOCYTE ESTERASE ,URINE 3+ (NEGATIVE); NITRITES,URINE POSITIVE (NEGATIVE); PROTEIN,URINE 3+ (NEGATIVE); UROBILINOGEN,URINE NORMAL (NORMAL)
--- NOTE | 2022-04-09 21:27 | RAD ---
HISTORYSOBSTUDYCHEST, 1 VIEWCOMPARISONSeptember 2019[facility] portable projection, 1 imageFINDINGSNo cardiomegaly.No focal airspace disease.No pleural effusion.Increased interstitial markings at the right lung base; similar to the previous exam.No pneumothorax.No acute osseous abnormality.IMPRESSIONNo imaging findings of acute cardiopulmonary disease or significant changes.Electronically signed by: Rashid Anglin (Apr 09, 2022 21:26:21)
[2022-04-09 21:29] LABS: APPEARANCE,URINE HAZY (CLEAR); BACTERIA,URINE 2+ /HPF (NEGATIVE); COLOR,URINE DARK YELLOW (YELLOW); SQUAMOUS EPITHELIAL CELL,UR FEW /HPF (NEGATIVE)
[2022-04-09] MEDS: TYLENOL 325 MG TAB PO PRN (21:31)
[2022-04-09] MEDS ORDERED: TYLENOL 325 MG TAB PO ONE (21:32)
[2022-04-09] MEDS: NS 1,000 ML IV 1,000 ML IV SCH (21:58)
[2022-04-09] MEDS ORDERED: LEVAQUIN PREMIX IV 500 MG 500 MG/100 ML BAG IV SCH (22:00)
[2022-04-09] MEDS ORDERED: NS 100 ML IV 100 ML ONE (22:04)
--- NOTE | 2022-04-09 22:23 | RAD ---
HISTORYPAIN AFTER FALLSTUDYWRIST, RIGHTCOMPARISONNone availableTECHNIQUERight wrist radiographs, 3 views, PA, oblique and lateral projectionsFINDINGSComminuted intra-articular mildly dorsally impacted distal radial fracture.Old radial styloid fracture.Normal joint spaces.Carpal bones are in normal alignment.Edema in the soft tissues of the distal forearm/wrist.IMPRESSIONComminuted intra-articular mildly dorsally impacted distal radial fracture.Electronically signed by: Rashid Anglin (Apr 09, 2022 22:22:25)
[2022-04-09 22:35] VITALS: BMI 31.3
[2022-04-09] MEDS ORDERED: ZOLOFT ONE (22:42)
[2022-04-09] MEDS: INVanz INJ 1 GRAM VIAL 1 G in NS 100 ML IV 100 ML IV SCH (22:59)
[2022-04-09] MEDS: ZOLOFT PO SCH (23:04)
[2022-04-09] MEDS: DESYREL PO SCH (23:04)
[2022-04-09] MEDS: ZOCOR TAB 40 MG PO SCH (23:04)
[2022-04-09] MEDS: EFFEXOR XR 75 MG CAP 24-HR PO SCH (23:05)
[2022-04-09] MEDS: KLONOPIN TAB 1 MG PO PRN (23:05)
[2022-04-09] MEDS: COZAAR PO SCH (23:05)
[2022-04-09] MEDS: RisperDAL TAB 1 MG PO SCH (23:05)
[2022-04-10] MEDS: EFFEXOR XR 75 MG CAP 24-HR PO SCH ×3 (05:49→21:42)
[2022-04-10] MEDS: TYLENOL 325 MG TAB PO PRN (05:50)
[2022-04-10 05:54] LABS: BASOPHILS # (AUTO) 0.1 X10^3/uL (0.0-0.1); BASOPHILS % (AUTO) 0.5 % (0.2-1.0); EOSINOPHILS % (AUTO) 0.3 % (0.9-2.9); HEMATOCRIT 33.5 % (42.0-54.0); HEMOGLOBIN 11.5 g/dL (13.5-18.0); LYMPHOCYTES # (AUTO) 1.1 X10^3/uL (1.3-2.9); LYMPHOCYTES % (AUTO) 9.4 % (21.0-51.0); MEAN CORPUSCULAR HEMOGLOBIN 31.1 pg (27.0-34.0); MEAN CORPUSCULAR HGB CONC 34.5 g/dL (33.0-35.0); MEAN CORPUSCULAR VOLUME 90.2 fL (80.0-100.0); MEAN PLATELET VOLUME 7.3 fL (7.4-11.0); MONOCYTES # (AUTO) 0.7 x10^3/uL (0.3-0.8); MONOCYTES % (AUTO) 6.6 % (0.0-13.0); NEUTROPHILS # (AUTO) 9.4 x10^3/uL (2.2-4.8); NEUTROPHILS % (AUTO) 83.2 % (42.0-75.0); RED BLOOD COUNT 3.71 X10^6/uL (4.7-6.0); RED CELL DISTRIBUTION WIDTH 14.1 % (11.6-16.5); WHITE BLOOD COUNT 11.2 X10^3/uL (3.6-10.0)
[2022-04-10 06:04] LABS: ALANINE AMINOTRANSFERASE 63 Units/L (12-78); ALBUMIN 2.4 g/dL (3.4-5.0); ALKALINE PHOSPHATASE 73 Units/L (46-116); ASPARTATE AMINO TRANSFERASE 59 Units/L (15-37); BLOOD UREA NITROGEN 15 mg/dL (7-18); CALCIUM 7.9 mg/dL (8.5-10.1); CARBON DIOXIDE 24.5 mmol/L (21-32); CHLORIDE 99 mmol/L (98-107); COR CA(FOR HYPOALB) 9.2 mg/dL (8.5-10.1); CREATININE 1.07 mg/dL (0.70-1.30); SODIUM 136 mmol/L (136-145); TOTAL PROTEIN 6.7 g/dL (6.4-8.2); eGFR NON BLACK RACES > 60 (>60)
[2022-04-10] MEDS ORDERED: POTASSIUM CHL 60 MEQ/NS 0.45% 500 ML IV PRN (06:09)
[2022-04-10] MEDS ORDERED: POTASSIUM CHLORIDE LIQ 20 MEQ UDC PO PRN (06:09)
[2022-04-10] MEDS ORDERED: MICRO K EXTEN CAP 10 MEQ PO PRN (06:09)
[2022-04-10] MEDS ORDERED: K-RIDER 10 MEQ/NS 100 ML 10 MEQ/100 ML BAG IV PRN (06:09)
[2022-04-10] MEDS ORDERED: KLOR-CON PO PRN (06:09)
[2022-04-10] MEDS ORDERED: POTASSIUM CHL 40 MEQ/NS 0.45% 500 ML IV PRN (06:09)
[2022-04-10] MEDS: K-DUR TAB 20 MEQ PO PRN ×2 (06:39→11:09)
[2022-04-10] MEDS: VITAMIN C PO SCH (08:43)
[2022-04-10] MEDS: BUTT CREAM (COMPOUND) TOP SCH ×3 (08:43→21:42)
[2022-04-10] MEDS: SYNTHROID 150 mcg TAB PO SCH (08:43)
[2022-04-10] MEDS: VITAMIN D3 25 mcg (1,000 UNITS) PO SCH (08:44)
[2022-04-10] MEDS: FLOMAX PO SCH (08:44)
[2022-04-10] MEDS: NexIUM PO SCH (08:44)
[2022-04-10] MEDS: MICRO K EXTEN CAP 10 MEQ PO SCH (08:44)
[2022-04-10] MEDS: COZAAR PO SCH ×2 (08:44→20:47)
[2022-04-10] MEDS: COLACE CAP 100 MG PO SCH (08:44)
[2022-04-10] MEDS: PROCARDIA XL PO SCH (08:44)
[2022-04-10] MEDS: TAB-A-VITE PO SCH (08:44)
[2022-04-10] MEDS: RisperDAL TAB 1 MG PO SCH ×3 (08:50→20:46)
[2022-04-10] MEDS: FOLTX PO SCH (08:57)
[2022-04-10] MEDS: LOVENOX INJ 40 MG SYR SC SCH (08:58)
[2022-04-10] MEDS: NS 1,000 ML IV 1,000 ML IV SCH ×3 (09:05→22:01)
[2022-04-10] MEDS ORDERED: TORADOL 30 MG VIAL IVP PRN (10:04)
[2022-04-10] MEDS: MAGNESIUM SULFATE 1 GRAM/100 mL PREMIX 1 G/100 ML BAG IV PRN ×2 (10:10→11:09)
[2022-04-10] MEDS: TYLENOL #3 TAB (W/CODEINE) PO PRN (10:12)
--- NOTE | 2022-04-10 11:25 | DR.H&P ---
H&P - History & Physical for Day of: H&P Date: 04/09/22 - Chief Complaint Chief Complaint: ALTERED MENTAL STATUS, GENERALIZED WEAKNESS, DIZZINESS, FREQUENT FALLS, INTERMITTENT SHORTNESS OF BREATH, AND RIGHT WRIST PAIN - History of Present Illness History of Present Illness: IS A 66 YEAR OLD PATIENT OF OURS. HE PRESENTED A DIRECT ADMISSION FOR TREATMENT OF ALTERED MENTAL STATUS, GENERALIZED WEAKNESS, DIZZINESS, FREQUENT FALLS, INTERMITTENT SHORTNESS OF BREATH, AND RIGHT WRIST PAIN. PATIENTS RYLEY REPORTS THAT SYMPTOMS STARTED AROUND TWO DAYS AGO. SHE REPORTS THAT PATIENT HAS FALLEN MULTIPLE TIMES OVER THE PAST TWO DAYS. HE BEGAN COMPLAINING OF RIGHT WRIST PAIN AFTER HIS LAST FALL. SHE ALSO REPORTS THAT HE HAS BEEN CONFUSED AND DISORIENTED. ADDITIONALLY, SHE REPORTS THAT PATIENT TESTED POSITIVE FOR COVID-19 ON 03/27/22. HE HAS TAKEN A MEDROL DOSEPACK AND PAXLOVID. HIS PMH INCLUDES TBI, HYPERLIPIDEMIA, HTN, SLEEP APNEA, HYPOTHYROIDISM, ANXIETY, DEPRESSION, LEFT HIP AND ARM SURGERY, NEUROSURGERY FOLLOWING TBI. ON ARRIVAL TO THE HOSPITAL, VITALS WERE: 101.0-111-22-94%-171/88. LABS WERE OBTAINED. WBC 13.8, RBC 4.09, HGB 12.7, HCT 36.8, SODIUM 136, POTASSIUM 4.1, CHLORIDE 97, BUN 17, CREATININE 1.07, GLUCOSE 93, CALCIUM 8.5, AST 64, ALT 67, ALK PHOS 82, CREATINE KINASE 496, TROPONIN 22.4, CRP 269.70, BNP 17.1, TOTAL PROTEIN 7.6, ALBUMIN 2.9. A URINALYSIS WAS OBTAINED AND REVEALED: WBC TNTC, RBC 3-5, BACTERIA 2+, LEUKOCYTES 3+, NITRITES POSITIVE, BLOOD 5+. COVID-19 POSITIVE. BLOOD AND URINE CULTURES WERE SET UP. A CHEST XRAY WAS OBTAINED AND REVEALED: No imaging findings of acute cardiopulmonary disease or significant changes. A BRAIN CT WAS OBTAINED AND REVEALED: No acute intracranial abnormality identified. A RIGHT WRIST XRAY WAS OBTAINED AND REVEALED: Comminuted intra-articular mildly dorsally impacted distal radial fracture. EKG REVEALED: SINUS TACHYCARDIA WITH HR 101. ON ADMISSION, HE WAS STARTED ON NORMAL SALINE AT 80 ML/HR, INVANZ 1G IV HS, TYLEONOL 650MG PO Q4H PRN, LOVENOX 40MG SC DAILY, TORADOL 30MG IV Q8H PRN. WE WILL RESUME HIS HOME MEDICATIONS OF TYLENOL #3 QID PRN, VITAMIN C, VITAMIND D3, KLONOPIN, COLACE, NEXIUM, FOLTX, SYNTHROID, COZAAR, MULTIVITAMINS, NIFEDIPINE, RISPERDAL, ZOLOFT, ZOCOR, FLOMAX, TRAZODONE, AND VENLAFAXINE. WE WILL ORDER A CHEST CTA TO RULE OUT PULMONARY EMBOLISM DUE TO ELEVATED D-DIMER, SHORTNESS OF BREATH, AND DIZZINESS. WE WILL CONSULT DR.CALLEGARI ORTHO, REGARDING WRIST FX. OTHERWISE, WE WILL FOLLOW-UP WITH AM LABS AND CONTINUE TO MONITOR. TIME SPENT ON CLINICAL ASSESSMENT, REVIWING LABS AND IMAGING, DECISION MAKING, AND DOCUMENTATION GREATER THAN 75 MINUTES. - Past Medical History Past Medical History: Anxiety, Arthritis, Depression, Dyslipidemia, Hypertension, Hypothyroidism, Kidney Stones, Sleep Apnea Additional Medical History: TRAUMATIC BRAIN INJURY - Past Surgical History Surgical History: Neurosurgery, Ortho Surgery - Family History Family Medical History: Diabetes Mellitus, Hypertension - Social History Does patient currently use any type of tobacco product: No Have you used tobacco products in the last 12 months: No Type of Tobacco Use: None Does any household member use tobacco: No Alcohol Use: None Drug Use: Prescription Drugs - Medications Home Medications: Penicillins Allergy (Verified 12/30/19 16:44) CONTINUE taking the following medications acetaminophen 300 mg-codeine 30 mg tablet 1 tab PO QID PRN 04/09/22 [History] ascorbic acid (vitamin C) 1,000 mg tablet (Vitamin C) 1,000 mg PO QDAY 04/09/22 [History] [id number] 333 mg-133 mg-5 mg tablet 1 tab PO DAILY 04/09/22 [History] cholecalciferol (vitamin D3) 25 mcg (1,000 unit) tablet (Vitamin D3) 25 mcg PO QDAY 04/09/22 [History] docusate sodium 100 mg capsule (Colace) 100 mg PO QDAY 04/09/22 [History] folic acid-vit B6-vit B12 2.5 mg-25 mg-2 mg tablet (WesTab Max) 1 tab PO QDAY 04/09/22 [History] - Review of Systems Constitutional: Fever, Weakness Eyes: No Symptoms Reported ENT: No Symptoms Reported Respiratory: Shortness of Breath Cardiovascular: Light [place]adedness Gastrointestinal: No Symptoms Reported Genitourinary: No Symptoms Reported Musculoskeletal: See HPI, Other (RIGHT WRIST PAIN ) Skin: No Symptoms Reported Neurological: Weakness, Confusion - Physical Exam Vital Signs: Temperature 99.0 F Pulse Rate [Left Radial] 90 Respiratory Rate 20 Blood Pressure [Right Arm] 119/70 Blood Pressure [Left Arm] 162/77 Blood Pressure 105/66 O2 Sat by Pulse Oximetry 92 Oriented: Person, Place Eyes: Normal Ear: Normal Nose: Normal Throat: Normal Respiratory: Diminished Throughout Cardiovascular: Tachycardia : Normal Auscultation: Bowel Sounds: Normal Palpation: Normal Tenderness: Normal Skin: Normal Musculoskeletal: Right, Wrist, Tender Psychiatric: Normal Mood Description: Calm Affect: Normal Speech Pattern: Clear - Assessment/Plan (1) Urinary tract infection Qualifiers: Urinary tract infection type: acute cystitis Hematuria presence: with hematuria Qualified Code(s): N30.01 - Acute cystitis with hematuria Status: Acute Plan: ADMIT, NORMAL SALINE AT 80 ML/HR, INVANZ 1G IV HS, TYLEONOL 650MG PO Q4H PRN, LOVENOX 40MG SC DAILY, TORADOL 30MG IV Q8H PRN. RESUME HOME MEDS (2) Rhabdomyolysis Qualifiers: Rhabdomyolysis type: traumatic Encounter type: initial encounter Qualified Code(s): T79.6XXA - Traumatic ischemia of muscle, initial encounter Status: Acute (3) AMS (altered mental status) Qualifiers: Altered mental status type: transient alteration of awareness Qualified Code(s): R40.4 - Transient alteration of awareness Status: Acute (4) Generalized weakness Status: Acute (5) Frequent falls Status: Acute (6) COVID-19 Status: Acute (7) Shortness of breath Status: Acute (8) HTN (hypertension) Qualifiers: Hypertension type: primary hypertension Qualified Code(s): I10 - Essential (primary) hypertension Status: Chronic (9) Dyslipidemia Status: Chronic - Allergies Allergies/Adverse Reactions: Allergies Allergy/AdvReac Type Severity Reaction Status Date / Time Penicillins Allergy Verified 12/30/19 16:44
--- NOTE | 2022-04-10 13:11 | CT ---
HISTORYELEV D-DIMERSTUDYCTA CHESTCOMPARISONNone availableTECHNIQUEPulmonary angiogram protocol was performed after the administration of contrast. 3D MIPS images were performed. CT scan was performed following ALARA (As low as Reasonably Achievable).Coronal and Sagittal reformatted images were performed.FINDINGSThe thyroid gland is very small. There is no evidence of filling defects in the pulmonary arteries, no pleural effusion, there is and small pericardial effusion, no evidence of adrenal masses, no gallstones. The stomach is not distended.The spleen measures approximately 14 centimeters. There are small pretracheal lymph node measuring 1.5 centimeters.Lung windows there is emphysema with mild honeycombing involving the right upper lobe in the periphery as well as the right base and in the left base consistent with lung fibrosis. No suspicious lung nodules.Bone windows there is no evidence of aggressive bone lesions. No acute fractures.IMPRESSIONNo radiographic evidence of pulmonary embolismMild mediastinal adenopathyEmphysema with honeycombing in the bases and in the right upper lobe consistent with lung fibrosis. No evidence of pneumoniaMild splenomegalyElectronically signed by: Jyoti Sosa (Apr 10, 2022 13:08:43)
[2022-04-10] MEDS ORDERED: ZOLOFT ONE (20:03)
[2022-04-10] MEDS: INVanz INJ 1 GRAM VIAL 1 G in NS 100 ML IV 100 ML IV SCH (20:44)
[2022-04-10] MEDS: DESYREL PO SCH (20:45)
[2022-04-10] MEDS: ZOLOFT PO SCH (20:46)
[2022-04-10] MEDS: ZOCOR TAB 40 MG PO SCH (20:47)
[2022-04-10] MEDS ORDERED: SEROquel TAB 25 mg PO SCH (21:00)
[2022-04-11] MEDS: TYLENOL #3 TAB (W/CODEINE) PO PRN ×2 (00:51→10:01)
[2022-04-11] MEDS: TYLENOL 325 MG TAB PO PRN ×2 (04:56→12:56)
[2022-04-11] MEDS: BUTT CREAM (COMPOUND) TOP SCH ×3 (05:00→21:20)
[2022-04-11] MEDS: EFFEXOR XR 75 MG CAP 24-HR PO SCH ×3 (05:01→21:20)
[2022-04-11 05:54] LABS: BASOPHILS # (AUTO) 0.1 X10^3/uL (0.0-0.1); BASOPHILS % (AUTO) 0.5 % (0.2-1.0); EOSINOPHILS % (AUTO) 0.5 % (0.9-2.9); HEMATOCRIT 29.4 % (42.0-54.0); HEMOGLOBIN 10.3 g/dL (13.5-18.0); LYMPHOCYTES # (AUTO) 1.3 X10^3/uL (1.3-2.9); LYMPHOCYTES % (AUTO) 13.9 % (21.0-51.0); MEAN CORPUSCULAR HEMOGLOBIN 31.3 pg (27.0-34.0); MEAN CORPUSCULAR VOLUME 89.4 fL (80.0-100.0); MEAN PLATELET VOLUME 7.3 fL (7.4-11.0); MONOCYTES # (AUTO) 0.6 x10^3/uL (0.3-0.8); MONOCYTES % (AUTO) 6.5 % (0.0-13.0); NEUTROPHILS # (AUTO) 7.5 x10^3/uL (2.2-4.8); NEUTROPHILS % (AUTO) 78.6 % (42.0-75.0); RED BLOOD COUNT 3.29 X10^6/uL (4.7-6.0); RED CELL DISTRIBUTION WIDTH 14.3 % (11.6-16.5); WHITE BLOOD COUNT 9.5 X10^3/uL (3.6-10.0)
[2022-04-11 06:09] LABS: ALANINE AMINOTRANSFERASE 101 Units/L (12-78); ALBUMIN 2.1 g/dL (3.4-5.0); ALKALINE PHOSPHATASE 71 Units/L (46-116); ASPARTATE AMINO TRANSFERASE 87 Units/L (15-37); BLOOD UREA NITROGEN 14 mg/dL (7-18); CALCIUM 7.7 mg/dL (8.5-10.1); CARBON DIOXIDE 26.6 mmol/L (21-32); CHLORIDE 102 mmol/L (98-107); COR CA(FOR HYPOALB) 9.2 mg/dL (8.5-10.1); MAGNESIUM 2.2 mg/dL (1.7-2.9); SODIUM 138 mmol/L (136-145); TOTAL PROTEIN 6.1 g/dL (6.4-8.2); eGFR NON BLACK RACES > 60 (>60)
[2022-04-11] MEDS: VITAMIN D3 25 mcg (1,000 UNITS) PO SCH (08:15)
[2022-04-11] MEDS: FLOMAX PO SCH (08:15)
[2022-04-11] MEDS: NexIUM PO SCH (08:15)
[2022-04-11] MEDS: VITAMIN C PO SCH (08:15)
[2022-04-11] MEDS: PROCARDIA XL PO SCH (08:15)
[2022-04-11] MEDS: SYNTHROID 150 mcg TAB PO SCH (08:16)
[2022-04-11] MEDS: MICRO K EXTEN CAP 10 MEQ PO SCH (08:16)
[2022-04-11] MEDS: COLACE CAP 100 MG PO SCH (08:16)
[2022-04-11] MEDS: COZAAR PO SCH ×2 (08:16→20:54)
[2022-04-11] MEDS: TAB-A-VITE PO SCH (08:16)
[2022-04-11] MEDS: RisperDAL TAB 1 MG PO SCH ×3 (08:17→21:20)
[2022-04-11] MEDS: LOVENOX INJ 40 MG SYR SC SCH (08:17)
[2022-04-11] MEDS: FOLTX PO SCH (09:29)
[2022-04-11] MEDS: NS 1,000 ML IV 1,000 ML IV SCH (10:01)
[2022-04-11] MEDS ORDERED: ZOLOFT ONE (21:16)
[2022-04-11] MEDS: INVanz INJ 1 GRAM VIAL 1 G in NS 100 ML IV 100 ML IV SCH (21:20)
[2022-04-11] MEDS: ZOCOR TAB 40 MG PO SCH (21:20)
[2022-04-11] MEDS: DESYREL PO SCH (21:20)
[2022-04-11] MEDS: ZOLOFT PO SCH (21:20)
[2022-04-11] MEDS: KLONOPIN TAB 1 MG PO PRN (21:20)
[2022-04-12] MEDS: NS 1,000 ML IV 1,000 ML IV SCH ×3 (00:51→15:53)
[2022-04-12] MEDS: TYLENOL #3 TAB (W/CODEINE) PO PRN ×3 (02:17→20:35)
[2022-04-12] MEDS: BUTT CREAM (COMPOUND) TOP SCH ×3 (05:57→20:00)
[2022-04-12] MEDS: EFFEXOR XR 75 MG CAP 24-HR PO SCH ×3 (05:58→20:27)
[2022-04-12 06:07] LABS: BASOPHILS % (AUTO) 0.5 % (0.2-1.0); EOSINOPHILS # (AUTO) 0.1 x10^3/uL (0.0-0.2); EOSINOPHILS % (AUTO) 0.7 % (0.9-2.9); HEMATOCRIT 30.3 % (42.0-54.0); HEMOGLOBIN 10.5 g/dL (13.5-18.0); LYMPHOCYTES # (AUTO) 1.4 X10^3/uL (1.3-2.9); LYMPHOCYTES % (AUTO) 19.2 % (21.0-51.0); MEAN CORPUSCULAR HEMOGLOBIN 31.3 pg (27.0-34.0); MEAN CORPUSCULAR HGB CONC 34.6 g/dL (33.0-35.0); MEAN CORPUSCULAR VOLUME 90.4 fL (80.0-100.0); MEAN PLATELET VOLUME 7.4 fL (7.4-11.0); MONOCYTES # (AUTO) 0.4 x10^3/uL (0.3-0.8); MONOCYTES % (AUTO) 5.5 % (0.0-13.0); NEUTROPHILS # (AUTO) 5.5 x10^3/uL (2.2-4.8); NEUTROPHILS % (AUTO) 74.1 % (42.0-75.0); RED BLOOD COUNT 3.35 X10^6/uL (4.7-6.0); RED CELL DISTRIBUTION WIDTH 14.1 % (11.6-16.5); WHITE BLOOD COUNT 7.5 X10^3/uL (3.6-10.0)
[2022-04-12 06:41] LABS: ALANINE AMINOTRANSFERASE 112 Units/L (12-78); ALBUMIN 2.1 g/dL (3.4-5.0); ALKALINE PHOSPHATASE 69 Units/L (46-116); BLOOD UREA NITROGEN 10 mg/dL (7-18); CALCIUM 7.8 mg/dL (8.5-10.1); CARBON DIOXIDE 25.5 mmol/L (21-32); CHLORIDE 105 mmol/L (98-107); COR CA(FOR HYPOALB) 9.3 mg/dL (8.5-10.1); CREATININE 0.76 mg/dL (0.70-1.30); SODIUM 140 mmol/L (136-145); TOTAL PROTEIN 6.4 g/dL (6.4-8.2); eGFR NON BLACK RACES > 60 (>60)
[2022-04-12 06:51] LABS: ASPARTATE AMINO TRANSFERASE 104 Units/L (15-37)
[2022-04-12] MEDS: NexIUM PO SCH (09:50)
[2022-04-12] MEDS: VITAMIN C PO SCH (09:50)
[2022-04-12] MEDS: MICRO K EXTEN CAP 10 MEQ PO SCH (09:51)
[2022-04-12] MEDS: SYNTHROID 150 mcg TAB PO SCH (09:51)
[2022-04-12] MEDS: FLOMAX PO SCH (09:51)
[2022-04-12] MEDS: COZAAR PO SCH ×2 (09:52→20:27)
[2022-04-12] MEDS: VITAMIN D3 25 mcg (1,000 UNITS) PO SCH (09:52)
[2022-04-12] MEDS: PROCARDIA XL PO SCH (09:52)
[2022-04-12] MEDS: TAB-A-VITE PO SCH (09:52)
[2022-04-12] MEDS: RisperDAL TAB 1 MG PO SCH ×3 (09:53→20:27)
[2022-04-12] MEDS: COLACE CAP 100 MG PO SCH (09:53)
[2022-04-12] MEDS: LOVENOX INJ 40 MG SYR SC SCH (09:53)
[2022-04-12] MEDS: FOLTX PO SCH (12:28)
[2022-04-12] MEDS ORDERED: ZOLOFT ONE (20:14)
[2022-04-12] MEDS: DESYREL PO SCH (20:27)
[2022-04-12] MEDS: ZOCOR TAB 40 MG PO SCH (20:27)
[2022-04-12] MEDS: ZOLOFT PO SCH (20:27)
[2022-04-12] MEDS: KLONOPIN TAB 1 MG PO PRN (20:27)
[2022-04-12] MEDS: INVanz INJ 1 GRAM VIAL 1 G in NS 100 ML IV 100 ML IV SCH (20:29)
[2022-04-13] MEDS: NS 1,000 ML IV 1,000 ML IV SCH (00:53)
[2022-04-13] MEDS: BUTT CREAM (COMPOUND) TOP SCH (03:15)
[2022-04-13] MEDS: EFFEXOR XR 75 MG CAP 24-HR PO SCH (05:01)
[2022-04-13 06:17] LABS: BASOPHILS % (AUTO) 0.6 % (0.2-1.0); EOSINOPHILS # (AUTO) 0.1 x10^3/uL (0.0-0.2); EOSINOPHILS % (AUTO) 1.4 % (0.9-2.9); HEMATOCRIT 30.7 % (42.0-54.0); HEMOGLOBIN 10.6 g/dL (13.5-18.0); LYMPHOCYTES # (AUTO) 1.5 X10^3/uL (1.3-2.9); LYMPHOCYTES % (AUTO) 25.7 % (21.0-51.0); MEAN CORPUSCULAR HEMOGLOBIN 31.1 pg (27.0-34.0); MEAN CORPUSCULAR HGB CONC 34.6 g/dL (33.0-35.0); MONOCYTES # (AUTO) 0.3 x10^3/uL (0.3-0.8); MONOCYTES % (AUTO) 5.8 % (0.0-13.0); NEUTROPHILS % (AUTO) 66.5 % (42.0-75.0); RED BLOOD COUNT 3.41 X10^6/uL (4.7-6.0); RED CELL DISTRIBUTION WIDTH 13.7 % (11.6-16.5)
[2022-04-13 06:33] LABS: ALANINE AMINOTRANSFERASE 109 Units/L (12-78); ALBUMIN 2.2 g/dL (3.4-5.0); ALKALINE PHOSPHATASE 69 Units/L (46-116); ASPARTATE AMINO TRANSFERASE 91 Units/L (15-37); BLOOD UREA NITROGEN 9 mg/dL (7-18); CALCIUM 7.9 mg/dL (8.5-10.1); CARBON DIOXIDE 26.8 mmol/L (21-32); CHLORIDE 105 mmol/L (98-107); COR CA(FOR HYPOALB) 9.3 mg/dL (8.5-10.1); CREATININE 0.83 mg/dL (0.70-1.30); SODIUM 140 mmol/L (136-145); TOTAL PROTEIN 6.5 g/dL (6.4-8.2); eGFR NON BLACK RACES > 60 (>60)
[2022-04-13] MEDS: TYLENOL #3 TAB (W/CODEINE) PO PRN (08:08)
[2022-04-13] MEDS: VITAMIN C PO SCH (09:41)
[2022-04-13] MEDS: FOLTX PO SCH (09:41)
[2022-04-13] MEDS: MICRO K EXTEN CAP 10 MEQ PO SCH (09:42)
[2022-04-13] MEDS: NexIUM PO SCH (09:42)
[2022-04-13] MEDS: COZAAR PO SCH (09:42)
[2022-04-13] MEDS: SYNTHROID 150 mcg TAB PO SCH (09:42)
[2022-04-13] MEDS: PROCARDIA XL PO SCH (09:42)
[2022-04-13] MEDS: FLOMAX PO SCH (09:42)
[2022-04-13] MEDS: TAB-A-VITE PO SCH (09:43)
[2022-04-13] MEDS: LOVENOX INJ 40 MG SYR SC SCH (09:43)
[2022-04-13] MEDS: VITAMIN D3 25 mcg (1,000 UNITS) PO SCH (09:44)
[2022-04-13] MEDS: COLACE CAP 100 MG PO SCH (09:44)
[2022-04-13] MEDS: RisperDAL TAB 1 MG PO SCH (09:45)
[2022-04-13 11:59] VITALS: BP 144/83
--- NOTE | 2022-04-13 12:56 | PCM.PROG ---
Progress Note - Progress Note for Day of Date of Exam: 04/11/22 - Subjective Subjective: WAS ADMITTED FOR TREATMENT OF A URINARY TRACT INFECTION, RHABDOMYOLYSIS, AMS, GENERALIZED WEAKNESS, AND A RIGHT WRIST FRACTURE. HE INITIALLY TESTED POSITIVE FOR COVID-19 ON 03/27/22. HE HAS HAD FREQUENT FALLS AND GENERALIZED WEAKNESS SINCE HAVING COVID. TODAY, HE IS ALERT AND ORIENTED, LYING IN BED ON MORNING ROUNDS. HE CONTINUES WITH COMPLAINTS OF GENERALIZED WEAKNESS AND RIGHT WRIST PAIN TODAY. RIGHT WRIST WAS PLACED IN A SPLINT YESTERDAY. WE SPOKE WITH OFFICE. THEY REPORTED THAT THEY WOULD FOLLOW-UP WITH PATIENT AN OUTPATIENT ONCE HE WAS DISCHARGED. ON EXAMINATION, HEART IS REGULAR IN RATE AND RHYTHM. BILATERAL LUNGS ARE NOTED WITH DIMINISHED LUNG SOUNDS THROUGHOUT. ABDOMEN IS ROUND, SOFT, AND NON-TENDER WITH NORMAL BOWEL SOUNDS NOTED IN ALL QUADRANTS. NO LOWER EXTREMITY EDEMA IS NOTED. HIS VITALS THIS MORNING ARE: 98.9-84-20-92%-130/71. LABS WERE OBTAINED. WBC 9.5, RBC 3.29, HGB 10.3, HCT 29.4, PLT COUNT 140, SODIUM 138, POTASSIUM 4.0, CHLORIDE 102, BUN 14, CREATININE 0.80, GLUCOSE 83, CALCIUM 7.7, AST 87, ALT 101, TOTAL PROTEIN 6.1, ALBUMIN 2.1. URINE AND BLOOD CULTURES ARE PENDING. A CHEST CTA WAS OBTAINED YESTERDAY. IT REVEALED: No radiographic evidence of pulmonary embolism. Mild mediastinal adenopathy. Emphysema with honeycombing in the bases and in the right upper lobe consistent with lung fibrosis. No evidence of pneumonia. Mild splenomegaly. HE IS CURRENTLY RECEIVING NORMAL SALINE AT 80 ML/HR, INVANZ 1G IV HS, TYLEONOL 650MG PO Q4H PRN, LOVENOX 40MG SC DAILY, TORADOL 30MG IV Q8H PRN. WE WILL RESUME HIS HOME MEDICATIONS OF TYLENOL #3 QID PRN, VITAMIN C, VITAMIND D3, KLONOPIN, COLACE, NEXIUM, FOLTX, SYNTHROID, COZAAR, MULTIVITAMINS, NIFEDIPINE, RISPERDAL, ZOLOFT, ZOCOR, FLOMAX, TRAZODONE, AND VENLAFAXINE. PHYSICAL AND OCCUPATIONAL THERAPIES ARE WORKING WITH PATIENT. WE WILL CONTINUE WITH CURRENT PLAN OF CARE TODAY. OTHERWISE, WE WILL FOLLOW-UP WITH AM LABS AND CONTINUE TO MONITOR. TIME SPENT ON CLINICAL ASSESSMENT, REVIWING LABS AND IMAGING, DECISION MAKING, AND DOCUMENTATION GREATER THAN 45 MINUTES. - Past Medical Family Social History Past Med/Fam/Surg Hx: No changes since H&P Allergies: Allergies Penicillins Allergy (Verified 12/30/19 16:44) - Review of Systems ROS: No change since H&P - Vital Signs and I&O's Vital Signs: Temperature 97.8 F Pulse Rate [Left Radial] 90 Respiratory Rate 20 Blood Pressure [Right Arm] 144/83 Blood Pressure [Left Arm] 138/84 Blood Pressure 105/66 O2 Sat by Pulse Oximetry 96 Intake and Output: Intake & Output 04/11/22 04/12/22 04/13/22 04/14/22 11:59 11:59 11:59 11:59 Intake Total 3423 / 3423 3210 / 3210 2710 / 2710 555 / 555 Output Total 350 / 350 900 / 900 2530 / 2530 Balance 3073 / 3073 2310 / 2310 180 / 180 555 / 555 - Physical Exam Oriented: Person, Place Eyes: Normal Ear: Normal Nose: Normal Throat: Normal Respiratory: Generalized, Diminished Cardiovascular: Normal : Normal Auscultation: Bowel Sounds: Normal Palpation: Normal Tenderness: Normal Skin: Normal Musculoskeletal: Right, Wrist, Tender Psychiatric: Normal Mood Description: Calm Affect: Normal Speech Pattern: Clear, Appropriate - Laboratory and Diagnostics Result Diagrams: 04/13/22 05:37 04/13/22 05:37 Labs: 04/09/22 20:14 Blood Blood Culture - Preliminary 04/09/22 20:07 Blood Blood Culture - Preliminary 04/09/22 21:08 Urine,Clean Catch Urine Culture - Final Escherichia Coli Laboratory WBC 6.0 X10^3/uL (3.6-10.0) 04/13/22 05:37 RBC 3.41 X10^6/uL (4.7-6.0) L 04/13/22 05:37 Hgb 10.6 g/dL (13.5-18.0) L 04/13/22 05:37 Hct 30.7 % (42.0-54.0) L 04/13/22 05:37 MCV 90.0 fL (80.0-100.0) 04/13/22 05:37 MCH 31.1 pg (27.0-34.0) 04/13/22 05:37 MCHC 34.6 g/dL (33.0-35.0) 04/13/22 05:37 RDW 13.7 % (11.6-16.5) 04/13/22 05:37 Plt Count 175 X10^3/uL (150.0-450.0) 04/13/22 05:37 MPV 7.0 fL (7.4-11.0) L 04/13/22 05:37 Neut % (Auto) 66.5 % (42.0-75.0) 04/13/22 05:37 Lymph % (Auto) 25.7 % (21.0-51.0) 04/13/22 05:37 [place] % (Auto) 5.8 % (0.0-13.0) 04/13/22 05:37 Eos % (Auto) 1.4 % (0.9-2.9) 04/13/22 05:37 Baso % (Auto) 0.6 % (0.2-1.0) 04/13/22 05:37 Neut # (Auto) 4.0 x10^3/uL (2.2-4.8) 04/13/22 05:37 Lymph # (Auto) 1.5 X10^3/uL (1.3-2.9) 04/13/22 05:37 [place] # (Auto) 0.3 x10^3/uL (0.3-0.8) 04/13/22 05:37 Eos # (Auto) 0.1 x10^3/uL (0.0-0.2) 04/13/22 05:37 Baso # (Auto) 0.0 X10^3/uL (0.0-0.1) 04/13/22 05:37 Absolute Nucleated RBC 0.0 /100WBC 04/13/22 05:37 D-Dimer 3.53 ug/ml (0.0-0.57) H 04/09/22 20:07 Sodium 140 mmol/L (136-145) 04/13/22 05:37 Corrected Sodium TNP 04/13/22 05:37 Potassium 3.5 mmol/L (3.5-5.1) 04/13/22 05:37 Chloride 105 mmol/L (98-107) 04/13/22 05:37 Carbon Dioxide 26.8 mmol/L (21-32) 04/13/22 05:37 BUN 9 mg/dL (7-18) 04/13/22 05:37 Creatinine 0.83 mg/dL (0.70-1.30) 04/13/22 05:37 Est GFR (MDRD) Af Amer > 60 (>60) 04/13/22 05:37 Est GFR (MDRD) Non-Af > 60 (>60) 04/13/22 05:37 Glucose 78 mg/dL (65-99) 04/13/22 05:37 Calcium 7.9 mg/dL (8.5-10.1) L 04/13/22 05:37 Corrected Calcium 9.3 mg/dL (8.5-10.1) 04/13/22 05:37 Magnesium 2.0 mg/dL (1.7-2.9) 04/13/22 05:37 Total Bilirubin 0.30 mg/dL (0.2-1.0) 04/13/22 05:37 AST 91 Units/L (15-37) H 04/13/22 05:37 ALT 109 Units/L (12-78) H 04/13/22 05:37 Alkaline Phosphatase 69 Units/L (46-116) 04/13/22 05:37 Creatine Kinase 496 Units/L (39-308) H 04/09/22 20:07 Troponin I High Sens 22.4 ng/L (4.0-60.0) 04/09/22 20:07 C-Reactive Protein 76.70 mg/L (0-3.0) H 04/13/22 05:37 B-Natriuretic Peptide 17.1 pg/mL (0-79) 04/09/22 20:07 Total Protein 6.5 g/dL (6.4-8.2) 04/13/22 05:37 Albumin 2.2 g/dL (3.4-5.0) L 04/13/22 05:37 Globulin 4.3 g/dL (2.5-4.5) 04/13/22 05:37 Albumin/Globulin Ratio 0.5 Ratio (1.1-2.1) L 04/13/22 05:37 Specimen Type Clean catch urine 04/09/22 21:08 Urine Color Dark yellow (YELLOW) 04/09/22 21:08 Urine Appearance Hazy (CLEAR) 04/09/22 21:08 Urine pH 6.0 (5.0 - 8.0) 04/09/22 21:08 Ur Specific [place] 1.020 (1.000-1.030) 04/09/22 21:08 Urine Protein 3+ (NEGATIVE) 04/09/22 21:08 Urine Glucose (UA) Negative (NEGATIVE) 04/09/22 21:08 Urine Ketones 3+ (NEGATIVE) 04/09/22 21:08 Urine Blood 5+ (NEGATIVE) 04/09/22 21:08 Urine Nitrite Positive (NEGATIVE) 04/09/22 21:08 Urine Bilirubin Negative (NEGATIVE) 04/09/22 21:08 Urine Urobilinogen Normal (NORMAL) 04/09/22 21:08 Ur Leukocyte Esterase 3+ (NEGATIVE) 04/09/22 21:08 Urine RBC 3-5 /HPF (0-3) A 04/09/22 21:08 Urine WBC Tntc /HPF (0-5) A 04/09/22 21:08 Ur Squamous Epith Cells Few /HPF (NEGATIVE) 04/09/22 21:08 Urine Bacteria 2+ /HPF (NEGATIVE) 04/09/22 21:08 Ur Culture Indicated? Yes/culture set up 04/09/22 21:08 SARS-CoV-2 (PCR) Positive (NEGATIVE) A 04/09/22 22:58 - Plan (1) Urinary tract infection Status: Acute Qualifiers: Urinary tract infection type: acute cystitis Hematuria presence: with hematuria Qualified Code(s): N30.01 - Acute cystitis with hematuria Plan: NORMAL SALINE AT 80 ML/HR, INVANZ 1G IV HS, TYLEONOL 650MG PO Q4H PRN, LOVENOX 40MG SC DAILY, TORADOL 30MG IV Q8H PRN. RESUME HOME MEDS (2) Rhabdomyolysis Status: Acute Qualifiers: Rhabdomyolysis type: traumatic Encounter type: initial encounter Qualified Code(s): T79.6XXA - Traumatic ischemia of muscle, initial encounter (3) Fracture of distal end of radius Status: Acute Qualifiers: Encounter type: initial encounter Fracture type: closed Fracture morphology: unspecified fracture morphology Laterality: right Qualified Code(s): S52.501A - Unspecified fracture of the lower end of right radius, initial encounter for closed fracture Plan: WRIST SPLINT, OUTPATIENT ORTHO FOLLOW-UP (4) AMS (altered mental status) Status: Acute Qualifiers: Altered mental status type: transient alteration of awareness Qualified Code(s): R40.4 - Transient alteration of awareness (5) Generalized weakness Status: Acute (6) Frequent falls Status: Acute (7) COVID-19 Status: Acute (8) Shortness of breath Status: Acute (9) HTN (hypertension) Status: Chronic Qualifiers: Hypertension type: primary hypertension Qualified Code(s): I10 - Essential (primary) hypertension (10) Dyslipidemia Status: Chronic
--- NOTE | 2022-04-13 13:01 | PCM.PROG ---
Progress Note - Progress Note for Day of Date of Exam: 04/12/22 - Subjective Subjective: IS CURRENTLY OBSERVATION STATUS FOR TREATMENT OF A URINARY TRACT INFECTION, RHABDOMYOLYSIS, AMS, GENERALIZED WEAKNESS, AND A RIGHT WRIST FRACTURE. HE INITIALLY TESTED POSITIVE FOR COVID-19 ON 03/27/22. HE HAS HAD FREQUENT FALLS AND GENERALIZED WEAKNESS SINCE HAVING COVID. TODAY, HE IS ALERT AND ORIENTED, LYING IN BED ON MORNING ROUNDS. HE CONTINUES WITH COMPLAINTS OF GENERALIZED WEAKNESS AND RIGHT WRIST PAIN TODAY. HE ADMITS TO SLIGHT IMPROVEMENT SINCE YESTERDAY. WE SPOKE WITH OFFICE. THEY REPORTED THAT THEY WOULD FOLLOW-UP WITH PATIENT AN OUTPATIENT ONCE HE WAS DISCHARGED. ON EXAMINATION, HEART IS REGULAR IN RATE AND RHYTHM. BILATERAL LUNGS ARE NOTED WITH DIMINISHED LUNG SOUNDS THROUGHOUT. ABDOMEN IS ROUND, SOFT, AND NON-TENDER WITH NORMAL BOWEL SOUNDS NOTED IN ALL QUADRANTS. NO LOWER EXTREMITY EDEMA IS NOTED. HIS VITALS THIS MORNING ARE: 97.7-68-18-93%-157/88. LABS WERE OBTAINED. WBC 7.5, RBC 3.35, HGB 10.5, HCT 30.3, PLT COUNT 145, SODIUM 140, POTASSIUM 3.7, BUN 10, CREATININE 0.76, GLUCOSE 87, CALCIUM 7.8, AST 104, ALT 112, TOTAL PROTEIN 6.4, ALBUMIN 2.1. URINE CULTURE IS POSITIVE FOR GROWTH OF E.COLI. HE IS CURRENTLY RECEIVING NORMAL SALINE AT 80 ML/HR, INVANZ 1G IV HS, TYLEONOL 650MG PO Q4H PRN, LOVENOX 40MG SC DAILY, TORADOL 30MG IV Q8H PRN. WE WILL RESUME HIS HOME MEDICATIONS OF TYLENOL #3 QID PRN, VITAMIN C, VITAMIN D D3, KLONOPIN, COLACE, NEXIUM, FOLTX, SYNTHROID, COZAAR, MULTIVITAMINS, NIFEDIPINE, RISPERDAL, ZOLOFT, ZOCOR, FLOMAX, TRAZODONE, AND VENLAFAXINE. PHYSICAL AND OCCUPATIONAL THERAPIES ARE WORKING WITH PATIENT. WE WILL CONTINUE WITH CURRENT PLAN OF CARE TODAY. OTHERWISE, WE WILL FOLLOW-UP WITH AM LABS AND CONTINUE TO MONITOR. TIME SPENT ON CLINICAL ASSESSMENT, REVIWING LABS AND IMAGING, DECISION MAKING, AND DOCUMENTATION GREATER THAN 45 MINUTES. - Past Medical Family Social History Past Med/Fam/Surg Hx: No changes since H&P Allergies: Allergies Penicillins Allergy (Verified 12/30/19 16:44) - Review of Systems ROS: No change since H&P - Vital Signs and I&O's Vital Signs: Temperature 97.8 F Pulse Rate [Left Radial] 90 Respiratory Rate 20 Blood Pressure [Right Arm] 144/83 Blood Pressure [Left Arm] 138/84 Blood Pressure 105/66 O2 Sat by Pulse Oximetry 96 Intake and Output: Intake & Output 04/11/22 04/12/22 04/13/22 04/14/22 11:59 11:59 11:59 11:59 Intake Total 3423 / 3423 3210 / 3210 2710 / 2710 555 / 555 Output Total 350 / 350 900 / 900 2530 / 2530 Balance 3073 / 3073 2310 / 2310 180 / 180 555 / 555 - Physical Exam Oriented: Person, Place Eyes: Normal Ear: Normal Nose: Normal Throat: Normal Respiratory: Generalized, Diminished Cardiovascular: Normal : Normal Auscultation: Bowel Sounds: Normal Tenderness: Normal Skin: Normal Musculoskeletal: Right, Wrist, Tender Psychiatric: Normal Mood Description: Calm Affect: Normal Speech Pattern: Clear, Appropriate - Laboratory and Diagnostics Result Diagrams: 04/13/22 05:37 04/13/22 05:37 Labs: 04/09/22 20:14 Blood Blood Culture - Preliminary 04/09/22 20:07 Blood Blood Culture - Preliminary 04/09/22 21:08 Urine,Clean Catch Urine Culture - Final Escherichia Coli Laboratory WBC 6.0 X10^3/uL (3.6-10.0) 04/13/22 05:37 RBC 3.41 X10^6/uL (4.7-6.0) L 04/13/22 05:37 Hgb 10.6 g/dL (13.5-18.0) L 04/13/22 05:37 Hct 30.7 % (42.0-54.0) L 04/13/22 05:37 MCV 90.0 fL (80.0-100.0) 04/13/22 05:37 MCH 31.1 pg (27.0-34.0) 04/13/22 05:37 MCHC 34.6 g/dL (33.0-35.0) 04/13/22 05:37 RDW 13.7 % (11.6-16.5) 04/13/22 05:37 Plt Count 175 X10^3/uL (150.0-450.0) 04/13/22 05:37 MPV 7.0 fL (7.4-11.0) L 04/13/22 05:37 Neut % (Auto) 66.5 % (42.0-75.0) 04/13/22 05:37 Lymph % (Auto) 25.7 % (21.0-51.0) 04/13/22 05:37 [place] % (Auto) 5.8 % (0.0-13.0) 04/13/22 05:37 Eos % (Auto) 1.4 % (0.9-2.9) 04/13/22 05:37 Baso % (Auto) 0.6 % (0.2-1.0) 04/13/22 05:37 Neut # (Auto) 4.0 x10^3/uL (2.2-4.8) 04/13/22 05:37 Lymph # (Auto) 1.5 X10^3/uL (1.3-2.9) 04/13/22 05:37 [place] # (Auto) 0.3 x10^3/uL (0.3-0.8) 04/13/22 05:37 Eos # (Auto) 0.1 x10^3/uL (0.0-0.2) 04/13/22 05:37 Baso # (Auto) 0.0 X10^3/uL (0.0-0.1) 04/13/22 05:37 Absolute Nucleated RBC 0.0 /100WBC 04/13/22 05:37 D-Dimer 3.53 ug/ml (0.0-0.57) H 04/09/22 20:07 Sodium 140 mmol/L (136-145) 04/13/22 05:37 Corrected Sodium TNP 04/13/22 05:37 Potassium 3.5 mmol/L (3.5-5.1) 04/13/22 05:37 Chloride 105 mmol/L (98-107) 04/13/22 05:37 Carbon Dioxide 26.8 mmol/L (21-32) 04/13/22 05:37 BUN 9 mg/dL (7-18) 04/13/22 05:37 Creatinine 0.83 mg/dL (0.70-1.30) 04/13/22 05:37 Est GFR (MDRD) Af Amer > 60 (>60) 04/13/22 05:37 Est GFR (MDRD) Non-Af > 60 (>60) 04/13/22 05:37 Glucose 78 mg/dL (65-99) 04/13/22 05:37 Calcium 7.9 mg/dL (8.5-10.1) L 04/13/22 05:37 Corrected Calcium 9.3 mg/dL (8.5-10.1) 04/13/22 05:37 Magnesium 2.0 mg/dL (1.7-2.9) 04/13/22 05:37 Total Bilirubin 0.30 mg/dL (0.2-1.0) 04/13/22 05:37 AST 91 Units/L (15-37) H 04/13/22 05:37 ALT 109 Units/L (12-78) H 04/13/22 05:37 Alkaline Phosphatase 69 Units/L (46-116) 04/13/22 05:37 Creatine Kinase 496 Units/L (39-308) H 04/09/22 20:07 Troponin I High Sens 22.4 ng/L (4.0-60.0) 04/09/22 20:07 C-Reactive Protein 76.70 mg/L (0-3.0) H 04/13/22 05:37 B-Natriuretic Peptide 17.1 pg/mL (0-79) 04/09/22 20:07 Total Protein 6.5 g/dL (6.4-8.2) 04/13/22 05:37 Albumin 2.2 g/dL (3.4-5.0) L 04/13/22 05:37 Globulin 4.3 g/dL (2.5-4.5) 04/13/22 05:37 Albumin/Globulin Ratio 0.5 Ratio (1.1-2.1) L 04/13/22 05:37 Specimen Type Clean catch urine 04/09/22 21:08 Urine Color Dark yellow (YELLOW) 04/09/22 21:08 Urine Appearance Hazy (CLEAR) 04/09/22 21:08 Urine pH 6.0 (5.0 - 8.0) 04/09/22 21:08 Ur Specific [place] 1.020 (1.000-1.030) 04/09/22 21:08 Urine Protein 3+ (NEGATIVE) 04/09/22 21:08 Urine Glucose (UA) Negative (NEGATIVE) 04/09/22 21:08 Urine Ketones 3+ (NEGATIVE) 04/09/22 21:08 Urine Blood 5+ (NEGATIVE) 04/09/22 21:08 Urine Nitrite Positive (NEGATIVE) 04/09/22 21:08 Urine Bilirubin Negative (NEGATIVE) 04/09/22 21:08 Urine Urobilinogen Normal (NORMAL) 04/09/22 21:08 Ur Leukocyte Esterase 3+ (NEGATIVE) 04/09/22 21:08 Urine RBC 3-5 /HPF (0-3) A 04/09/22 21:08 Urine WBC Tntc /HPF (0-5) A 04/09/22 21:08 Ur Squamous Epith Cells Few /HPF (NEGATIVE) 04/09/22 21:08 Urine Bacteria 2+ /HPF (NEGATIVE) 04/09/22 21:08 Ur Culture Indicated? Yes/culture set up 04/09/22 21:08 SARS-CoV-2 (PCR) Positive (NEGATIVE) A 04/09/22 22:58 - Plan (1) Urinary tract infection Status: Acute Qualifiers: Urinary tract infection type: acute cystitis Hematuria presence: with hem aturia Qualified Code(s): N30.01 - Acute cystitis with hematuria Plan: NORMAL SALINE AT 80 ML/HR, INVANZ 1G IV HS, TYLEONOL 650MG PO Q4H PRN, JOSE LUIS ENOX 40MG SC DAILY, TORADOL 30MG IV Q8H PRN. RESUME HOME MEDS (2) Rhabdomyolysis Status: Acute Qualifiers: Rhabdomyolysis type: traumatic Encounter type: initial encounter Qualified Code(s): T79.6XXA - Traumatic ischemia of muscle, initial encounter (3) Fracture of distal end of radius Status: Acute Qualifiers: Encounter type: initial encounter Fracture type: closed Fracture morphology: unspecified fracture morphology Laterality: right Qualified Code(s): S52.501A - Unspecified fracture of the lower end of right radius, initial encounter for closed fracture Plan: WRIST SPLINT, OUTPATIENT ORTHO FOLLOW-UP (4) AMS (altered mental status) Status: Acute Qualifiers: Altered mental status type: transient alteration of awareness Qualified Code(s): R40.4 - Transient alteration of awareness (5) Generalized weakness Status: Acute (6) Frequent falls Status: Acute (7) COVID-19 Status: Acute (8) Shortness of breath Status: Acute (9) HTN (hypertension) Status: Chronic Qualifiers: Hypertension type: primary hypertension Qualified Code(s): I10 - Essential (primary) hypertension (10) Dyslipidemia Status: Chronic
== END 2022-04-13 14:00 ==
LOC: MED/SURG
PROVIDERS: ADMIT Internal Medicine; ATTEND Internal Medicine
DX: I10 Essential (primary) hypertension; R26.89 Other abnormalities of gait and mobility; R29.6 Repeated falls; R79.1 Abnormal coagulation profile; R06.02 Shortness of breath; U07.1 COVID-19; W18.39XA Other fall on same level, initial encounter; M62.82 Rhabdomyolysis; R53.1 Weakness; B96.29 Other Escherichia coli [E. coli] as the cause of diseases classified elsewhere; S52.571A Other intraarticular fracture of lower end of right radius, initial encounter for closed fracture; N30.01 Acute cystitis with hematuria; R79.82 Elevated C-reactive protein (CRP)

== ENCOUNTER 2022-10-21 14:27 | Observation (INO) ==
[2022-10-21 15:01] LABS: BILIRUBIN,URINE NEGATIVE (NEGATIVE); BLOOD/HEMOGLOBIN,URINE 3+ (NEGATIVE); GLUCOSE, URINE NEGATIVE (NEGATIVE); KETONES,URINE NEGATIVE (NEGATIVE); LEUKOCYTE ESTERASE ,URINE 3+ (NEGATIVE); NITRITES,URINE POSITIVE (NEGATIVE); PROTEIN,URINE 2+ (NEGATIVE); UROBILINOGEN,URINE NORMAL (NORMAL)
[2022-10-21 15:05] LABS: APPEARANCE,URINE HAZY (CLEAR); COLOR,URINE YELLOW (YELLOW)
[2022-10-21 15:11] LABS: BACTERIA,URINE 3+ /HPF (NEGATIVE); SQUAMOUS EPITHELIAL CELL,UR RARE /HPF (NEGATIVE)
--- NOTE | 2022-10-21 15:18 | DR.UPM ---
HPI Time Seen Time Seen by Provider: 10/21/22 15:08 PCP Primary Care Physician: FREDY HPI Comment HPI Comment: Pt accompanied by father .According to her patient has been more drowsier than usual and may be more confused .He has betty urinatining more o ften.Has been drinking multiple glasses of waetr .Does have BPH .However has had no dysuria or hematuria.Pt did complain of chest pain yesterday none today . He does mutiple antidepressive and one antipschotic medication .he is benzodiazepine as well as opioid for pain .he has been taking them for sometime .Daughter became concerned and brought patient to ER for evaluation .concerned he may heve uti Complaint Chief Complaint Doctors Comments: urinary frequency ,drowsier Chief Complaint:: PATIENT STATES HE HAS BEEN GETTING UP TO VOID EVERY 30 MINS. HE DENIES PAIN, AND STATES THERE HAS BEEN NO SIGNS OF BLOOD IN HIS URINE. COVID-19 Coronavirus risk:travel/contact w/high risk person: No Has patient experienced Coronavirus symptoms: No Source History Provided: Patient Mode of Arrival Mode of Arrival: Ambulatory Timing Onset of Chief Complaint: 10/20/22 PMH PMH Past Medical History: Yes Past Medical History: Anxiety, Arthritis, Depression, Dyslipidemia, Hypertension, Hypothyroidism, Kidney Stones and Sleep Apnea Past Surgical History: Yes Surgical History: Neurosurgery and Ortho Surgery Family History History of Family Medical Conditions: Yes Family Medical History: Diabetes Mellitus and Hypertension Social History Does patient currently use any type of tobacco product: No Have you used tobacco products in the last 12 months: No Type of Tobacco Use: None Does any household member use tobacco: No Alcohol Use: None Do you use any recreational Drugs:: No Lives With: Family Lives Where: Home Travel Risk Coronavirus risk:travel/contact w/high risk person: No Has patient experienced Coronavirus symptoms: No Infectious screening In the last 2 months have you had wt loss of >10#?: NO Have you had fever, night sweats or hemotysis?: No Have you traveled outside the country in the last 6 months?: No Isolation: Standard ROS Review of Systems Constitutional: Fever, Malaise and Fatigue Eyes: No Symptoms Reported ENTM: No Symptoms Reported Respiratoy: No Symptoms Reported Cardiovascular: Chest Pain Gastrointestinal/Abdominal: No Symptoms Reported Genitourinary: Frequency Neurological: Emotional Problems Musculoskeletal: No Symptoms Reported Integumentary: No Symptoms Reported Endocrine: No Symptoms Reported Psychiatric: No Symptoms Reported PE Vital Signs Vitals: Temperature 97.9 F Pulse Rate 90 Respiratory Rate 20 Blood Pressure [Right Arm] 144/83 Blood Pressure 113/64 O2 Sat by Pulse Oximetry 98 General Limitations: No Limitations General Appearance: Alert and Lethargic Head Head Exam: Normal Inspection and Atraumatic Eyes Eye exam: Normal Appearance and PERRL ENT ENT Exam: Normal Exam and Normal Oropharynx Neck Neck Exam: Normal Inspection and Full ROM Chest Chest Inspection: Normal Inspection Respiratory Respiratory Exam: Bilateral: Decreased Breath Sounds Cardiovascular Cardiovascular Exam: +S1 and +S2 Abdominal Exam Abdominal Exam: Normal Bowel Sounds and Soft Extremities Extremities Exam: Normal Inspection Neurologic Neurological Exam: Alert and Other (unstaedy gait ,increased tone lower ext ,reflex mildly hyperreflexive ,no clonus noted ) Psychiatric Psychiatric Exam: Flat Affect Skin Skin Exam: Normal Color MDM Additional Information Obtained Urinary Findings: chest ,abnomal chest sound,drowsiness,hx of multiple antidepressive Differential Diagnosis Other Differential Diagnosis: serotnin syndrome COURSE Treatment Treatment: ekg,labs,ct head ,urinalysis ,uds ,cxr ROR Labs Reviewed Laboratory Results Reviewed?: Yes Result Diagrams: 10/21/22 15:22 10/21/22 15:22 Laboratory: WBC 18.7 X10^3/uL (3.6-10.0) H 10/21/22 15:22 RBC 4.91 X10^6/uL (4.7-6.0) 10/21/22 15:22 Hgb 14.3 g/dL (13.5-18.0) 10/21/22 15:22 Hct 43.0 % (42.0-54.0) 10/21/22 15:22 MCV 87.7 fL (80.0-100.0) 10/21/22 15:22 MCH 29.1 pg (27.0-34.0) 10/21/22 15:22 MCHC 33.2 g/dL (33.0-35.0) 10/21/22 15:22 RDW 18.8 % (11.6-16.5) H 10/21/22 15:22 Plt Count 131 X10^3/uL (150.0-450.0) L 10/21/22 15:22 Plt Count Comment Adequate (ADEQUATE) 10/21/22 15:22 MPV 7.9 fL (7.4-11.0) 10/21/22 15:22 Neut % (Auto) 88.0 % (42.0-75.0) H 10/21/22 15:22 Lymph % (Auto) 7.3 % (21.0-51.0) L 10/21/22 15:22 [place] % (Auto) 4.0 % (0.0-13.0) 10/21/22 15:22 Eos % (Auto) 0.5 % (0.9-2.9) L 10/21/22 15:22 Baso % (Auto) 0.2 % (0.2-1.0) 10/21/22 15:22 Neut # (Auto) 16.4 x10^3/uL (2.2-4.8) H 10/21/22 15:22 Lymph # (Auto) 1.4 X10^3/uL (1.3-2.9) 10/21/22 15:22 [place] # (Auto) 0.8 x10^3/uL (0.3-0.8) 10/21/22 15:22 Eos # (Auto) 0.1 x10^3/uL (0.0-0.2) 10/21/22 15:22 Baso # (Auto) 0.0 X10^3/uL (0.0-0.1) 10/21/22 15: Absolute Nucleated RBC 0.3 /100WBC 10/21/22 15:22 Plt Morphology Comment Normal (NORMAL) 10/21/22 15:22 RBC Morphology Normal (NORMAL) 10/21/22 15:22 Sodium 137 mmol/L (136-145) 10/21/22 15:22 Corrected Sodium 138 mmol/L (136-145) 10/21/22 15:22 Potassium 4.4 mmol/L (3.5-5.1) 10/21/22 15: Chloride 100 mmol/L (98-107) 10/21/22 15:22 Carbon Dioxide 31.0 mmol/L (21-32) 10/21/22 15:22 BUN 16 mg/dL (7-18) 10/21/22 15:22 Creatinine 1.35 mg/dL (0.70-1.30) H 10/21/22 15:22 Est GFR (MDRD) Af Amer > 60 (>60) 10/21/22 15:22 Est GFR (MDRD) Non-Af 56 (>60) L 10/21/22 15:22 Glucose 149 mg/dL (65-99) H 10/21/22 15:22 Hemoglobin A1c 5.9 % 10/21/22 15:22 Calcium 8.8 mg/dL (8.5-10.1) 10/21/22 15:22 Corrected Calcium TNP 10/21/22 15:22 Total Bilirubin 0.90 mg/dL (0.2-1.0) 10/21/22 15:22 AST 39 Units/L (15-37) H 10/21/22 15:22 ALT 35 Units/L (12-78) 10/21/22 15:22 Alkaline Phosphatase 66 Units/L (46-116) 10/21/22 15:22 Creatine Kinase 1167 Units/L (39-308) H 10/21/22 15:22 Troponin I High Sens 64.9 ng/L (4.0-60.0) H* 10/21/22 17:22 Total Protein 7.0 g/dL (6.4-8.2) 10/21/22 15:22 Albumin 3.5 g/dL (3.4-5.0) 10/21/22 15:22 Globulin 3.5 g/dL (2.5-4.5) 10/21/22 15:22 Albumin/Globulin Ratio 1.0 Ratio (1.1-2.1) L 10/21/22 15:22 Specimen Type Clean catch urine 10/21/22 14:45 Urine Color Yellow (YELLOW) 10/21/22 14:45 Urine Appearance Hazy (CLEAR) 10/21/22 14:45 Urine pH 7.0 (5.0 - 8.0) 10/21/22 14:45 Ur Specific [place] 1.005 (1.000-1.030) 10/21/22 14:45 Urine Protein 2+ (NEGATIVE) 10/21/22 14:45 Urine Glucose (UA) Negative (NEGATIVE) 10/21/22 14:45 Urine Ketones Negative (NEGATIVE) 10/21/22 14:45 Urine Blood 3+ (NEGATIVE) 10/21/22 14:45 Urine Nitrite Positive (NEGATIVE) 10/21/22 14:45 Urine Bilirubin Negative (NEGATIVE) 10/21/22 14:45 Urine Urobilinogen Normal (NORMAL) 10/21/22 14:45 Ur Leukocyte Esterase 3+ (NEGATIVE) 10/21/22 14:45 Urine RBC 3-5 /HPF (0-3) A 10/21/22 14:45 Urine WBC Tntc /HPF (0-5) A 10/21/22 14:45 Ur Squamous Epith Cells Rare /HPF (NEGATIVE) 10/21/22 14:45 Urine Bacteria 3+ /HPF (NEGATIVE) 10/21/22 14:45 Ur Culture Indicated? Yes/culture set up 10/21/22 14:45 Urine Opiates Screen Positive (NEG=<300) 10/21/22 14:45 Urine Methadone Screen Negative (NEG=<300) 10/21/22 14:45 Ur Barbiturates Screen Negative (NEG=<200) 10/21/22 14:45 Ur Phencyclidine Scrn Negative (NEG=<25) 10/21/22 14:45 Ur Amphetamines Screen Negative (NEG=<1000) 10/21/22 14:45 U Benzodiazepines Scrn Positive (NEG=<200) 10/21/22 14:45 Urine Cocaine Screen Negative (NEG=<300) 10/21/22 14:45 U Marijuana (THC) Screen Negative (NEG=<50) 10/21/22 14:45 Opioid Opioid Risk Tool Age (Valerio box if 16-45): No History of Preadolescent Sexual Abuse: No Total: 0 Total Score Risk Category: Low Risk Copyright: Robson AKERS predicting aberrant behaviors Discharge Plan Diagnosis Discharge Problem: Serotonin syndrome, Rhabdomyolysis, Confusion, Leucocytosis, Asymptomatic bacteriuria Discharge Plan Patient Disposition: 09 ADMITTED INPATIENT Condition: Stable Prescriptions: No Action losartan 50 mg tablet 1 tab PO BID nifedipine 30 mg tablet extended release 24hr 1 tab PO QDAY venlafaxine 75 mg capsule,extended release 24hr 75 mg PO TID sertraline 100 mg tablet 3 tab PO QPM clonazepam 1 mg tablet 1 tab PO Q4-5H PRN simvastatin 40 mg tablet 1 tab PO QPM tamsulosin 0.4 mg capsule 1 cap PO QDAY trazodone 100 mg tablet 3 tab PO QPM esomeprazole magnesium 40 mg capsule,delayed release(DR/EC) 40 mg PO QDAY levothyroxine 150 mcg tablet 1 tab PO QDAY testosterone cypionate 200 mg/mL oil 0.5 ml IM QWEEK risperidone 1 mg tablet 1 tab PO DIRECTED Rx Instructions: TAKE 1 TABLET BY MOUTH TWICE A DAY AND 3 TABLETS EACH NIGHT AT BEDTIME potassium chloride 10 mEq tablet,ER particles/crystals 1 tab PO QDAY ascorbic acid (vitamin C) [Vitamin C] 1,000 mg Tablet 1,000 mg PO QDAY acetaminophen-codeine 300-30 mg tablet 1 tab PO QID PRN docusate sodium [Colace] 100 mg Capsule 100 mg PO QDAY WesTab Max 2.5-25-2 mg Tablet 1 tab PO QDAY [id number]-[id number] 333-133-5 mg Tablet 1 tab PO DAILY cholecalciferol (vitamin D3) [Vitamin D3] 25 mcg (1,000 unit) Tablet 25 mcg PO QDAY doxycycline hyclate [Vibramycin] 100 mg Capsule 100 mg PO BID Qty: 20 0RF Rx Instructions: take one capsule twice a day x 10 days Health Concerns: Post Hospitalization: new medications and changes needed to prevent readmission or further decline. Pt educated and given instructions on all concerns. Plan of Treatment: Continue with present treatment and follow up plan. Pt is to keep follow up appointment as instructed and take medications as ordered. Orders to Discharge Patient Discharge Orders: Transfer (Routine); Ordered 10/21/22 Ordered By: Valdez Car Follow ups/Referrals Follow ups/Referrals: Dieudonne Silva [Primary Care Provider] - 3 days ADDITIONAL NOTES Additional Notes Additional Notes: leucocytosuis,abnormal renal ,elevated CPK ,increased muscle tone .May have serotonin syndrome.On klonipin which could be masking some of the symptoms aprtciularly elevated temp will give cyprheptadine .Ser troponin slightly elevated but ekg no acute st change will repeat another in 2 hrs .Repeat troponin was normal .spoke with Dr Angulo agreed to admit patient u/a abnormal but no dysuria.will hold off ssriamd snri and antipsychotic for tonight
[2022-10-21 15:49] LABS: BASOPHILS % (AUTO) 0.2 % (0.2-1.0); EOSINOPHILS # (AUTO) 0.1 x10^3/uL (0.0-0.2); EOSINOPHILS % (AUTO) 0.5 % (0.9-2.9); HEMOGLOBIN 14.3 g/dL (13.5-18.0); LYMPHOCYTES # (AUTO) 1.4 X10^3/uL (1.3-2.9); LYMPHOCYTES % (AUTO) 7.3 % (21.0-51.0); MEAN CORPUSCULAR HEMOGLOBIN 29.1 pg (27.0-34.0); MEAN CORPUSCULAR HGB CONC 33.2 g/dL (33.0-35.0); MEAN CORPUSCULAR VOLUME 87.7 fL (80.0-100.0); MEAN PLATELET VOLUME 7.9 fL (7.4-11.0); MONOCYTES # (AUTO) 0.8 x10^3/uL (0.3-0.8); NEUTROPHILS # (AUTO) 16.4 x10^3/uL (2.2-4.8); RED BLOOD COUNT 4.91 X10^6/uL (4.7-6.0); RED CELL DISTRIBUTION WIDTH 18.8 % (11.6-16.5); WHITE BLOOD COUNT 18.7 X10^3/uL (3.6-10.0)
[2022-10-21 15:54] LABS: ALANINE AMINOTRANSFERASE 35 Units/L (12-78); ALBUMIN 3.5 g/dL (3.4-5.0); ALKALINE PHOSPHATASE 66 Units/L (46-116); ASPARTATE AMINO TRANSFERASE 39 Units/L (15-37); BLOOD UREA NITROGEN 16 mg/dL (7-18); CALCIUM 8.8 mg/dL (8.5-10.1); CHLORIDE 100 mmol/L (98-107); COR NA(FOR HYPERGLY) 138 mmol/L (136-145); CREATININE 1.35 mg/dL (0.70-1.30); SODIUM 137 mmol/L (136-145); eGFR NON BLACK RACES 56 (>60)
--- NOTE | 2022-10-21 15:54 | EKG ---
Test Reason : CHEST PAIN Blood Pressure : */* mmHG Vent. Rate : 79 BPM Atrial Rate : 79 BPM P-R Int : 170 ms QRS Dur : 120 ms QT Int : 388 ms P-R-T Axes : 56 -38 97 degrees QTc Int : 444 ms Normal sinus rhythm Left axis deviation Left ventricular hypertrophy with QRS widening and repolarization abnormality ( R in aVL , Doyle pr oduct ) Abnormal ECG No previous ECGs available Nonspecific intraventricular conduction delay Confirmed by Rayshawn Burton ([id number]) on 10/22/2022 6:24:52 PM Referred By: Confirmed By: Rayshawn Burton
--- NOTE | 2022-10-21 16:03 | CT ---
HISTORYPossible uti weak amsSTUDYBRAIN W/O CONCOMPARISONAugust 2021TECHNIQUEAxial non-contrast images of the head were obtained with coronal and sagittal reformats provided.Radiation dose: 912.24 mGy-cm total DLPFINDINGSNo abnormal areas of acute attenuation in the brain parenchyma.Thao-white differentiation remains intact.No intracranial, extra-axial, fluid collection.No hemorrhage.Periventricular chronic microvascular disease.No mass, mass effect or midline shift.Age related brain parenchymal global atrophy.No ventriculomegaly.No acute fracture.Sinuses are well aerated.Mastoid air cells are well aerated.Globes and intra-orbital contents are unremarkable.IMPRESSIONNo acute intracranial abnormality identified.Electronically signed by: Rashid Anglin (Oct 21, 2022 16:02:35)
[2022-10-21 16:19] LABS: PLATELET MORPHOLOGY COMMENT NORMAL (NORMAL)
[2022-10-21] MEDS ORDERED: NS 1,000 ML IV 1,000 ML IV ONE (16:25)
[2022-10-21] MEDS ORDERED: PERIACTIN TAB 4 MG ONE (16:29)
[2022-10-21] MEDS ORDERED: NS 1,000 ML IV 1,000 ML ONE ×2 (16:30→18:38)
[2022-10-21] MEDS ORDERED: PERIACTIN TAB 4 MG PO ONE (16:47)
[2022-10-21] MEDS ORDERED: FLOMAX ONE (18:38)
[2022-10-21] MEDS: FLOMAX PO SCH (18:44)
[2022-10-21] MEDS: NS 1,000 ML IV 1,000 ML IV SCH (18:45)
--- NOTE | 2022-10-21 20:16 | RAD ---
STUDY: FRONTAL VIEW CHESTCOMPARISON: April 09, 2022HISTORY: possible uti and weak and amsFINDINGS:Subsegmental atelectasis is noted.No focal consolidation is seen.The heart size is within normal limits.The mediastinum is unremarkable.There is no evidence of pleural effusion or gross pneumothorax.The trachea is midline.IMPRESSION:1. No focal consolidation is seen.2. The heart size is normal.Electronically signed by: Trevor Ham (Oct 21, 2022 20:15:24)
[2022-10-21] MEDS: INVanz INJ 1 GRAM VIAL 1 G in NS 100 ML IV 100 ML IV SCH (21:05)
[2022-10-21] MEDS: ZOCOR TAB 40 MG PO SCH (21:05)
[2022-10-21] MEDS: PERIACTIN TAB 4 MG PO SCH (21:06)
[2022-10-22] MEDS: TYLENOL #3 TAB (W/CODEINE) PO PRN ×2 (00:25→21:12)
[2022-10-22] MEDS: NS 1,000 ML IV 1,000 ML IV SCH ×7 (00:26→21:10)
[2022-10-22 01:27] LABS: BILIRUBIN,URINE NEGATIVE (NEGATIVE); BLOOD/HEMOGLOBIN,URINE 3+ (NEGATIVE); GLUCOSE, URINE NEGATIVE (NEGATIVE); KETONES,URINE NEGATIVE (NEGATIVE); LEUKOCYTE ESTERASE ,URINE 3+ (NEGATIVE); NITRITES,URINE POSITIVE (NEGATIVE); PROTEIN,URINE 2+ (NEGATIVE); UROBILINOGEN,URINE NORMAL (NORMAL)
[2022-10-22 01:30] LABS: APPEARANCE,URINE SLIGHTLY HAZY (CLEAR); COLOR,URINE YELLOW (YELLOW)
[2022-10-22 01:38] LABS: BACTERIA,URINE 1+ /HPF (NEGATIVE); SQUAMOUS EPITHELIAL CELL,UR RARE /HPF (NEGATIVE)
[2022-10-22 05:14] LABS: BASOPHILS % (AUTO) 0.1 % (0.2-1.0); HEMATOCRIT 40.9 % (42.0-54.0); HEMOGLOBIN 13.8 g/dL (13.5-18.0); LYMPHOCYTES # (AUTO) 1.2 X10^3/uL (1.3-2.9); LYMPHOCYTES % (AUTO) 9.2 % (21.0-51.0); MEAN CORPUSCULAR HEMOGLOBIN 29.2 pg (27.0-34.0); MEAN CORPUSCULAR HGB CONC 33.8 g/dL (33.0-35.0); MEAN CORPUSCULAR VOLUME 86.6 fL (80.0-100.0); MEAN PLATELET VOLUME 7.9 fL (7.4-11.0); MONOCYTES # (AUTO) 0.8 x10^3/uL (0.3-0.8); NEUTROPHILS # (AUTO) 11.3 x10^3/uL (2.2-4.8); NEUTROPHILS % (AUTO) 84.7 % (42.0-75.0); RED BLOOD COUNT 4.72 X10^6/uL (4.7-6.0); RED CELL DISTRIBUTION WIDTH 19.3 % (11.6-16.5); WHITE BLOOD COUNT 13.3 X10^3/uL (3.6-10.0)
[2022-10-22 05:38] LABS: ALANINE AMINOTRANSFERASE 33 Units/L (12-78); ALBUMIN 3.5 g/dL (3.4-5.0); ALKALINE PHOSPHATASE 67 Units/L (46-116); ASPARTATE AMINO TRANSFERASE 48 Units/L (15-37); BLOOD UREA NITROGEN 12 mg/dL (7-18); CALCIUM 8.9 mg/dL (8.5-10.1); CHLORIDE 102 mmol/L (98-107); CREATININE 0.96 mg/dL (0.70-1.30); SODIUM 137 mmol/L (136-145); TOTAL PROTEIN 7.4 g/dL (6.4-8.2); eGFR NON BLACK RACES > 60 (>60)
[2022-10-22 05:46] LABS: CREATINE KINASE 1413 Units/L (39-308)
[2022-10-22] MEDS: PERIACTIN TAB 4 MG PO SCH ×3 (06:12→21:10)
[2022-10-22] MEDS: SYNTHROID 150 mcg TAB PO SCH (06:12)
[2022-10-22] MEDS: FLOMAX PO SCH (09:12)
--- NOTE | 2022-10-22 12:06 | DR.H&P ---
H&P - History & Physical for Day of: H&P Date: 10/21/22 - Chief Complaint Chief Complaint: confusion, increased urination - History of Present Illness History of Present Illness: PT IS 67 WM, ER ADMISSION AFTER FAMILY BROUGHT PT IN FOR EVALUATION DUE TO PT HAVING INCREASED CONFUSION AND URINARY FREQUENCY. FAMILY REPORTS PT HAS PMH OFBPH AND CONCERNED HE MAY HAVE A UTI. PT HAS PMH OF [place], MMD, HTN AND BPH. PT ADMITTED FOR TREATMENT AND EVALUATION OF ACUTE ILLNESS. - Past Medical History Past Medical History: Hypertension, Dyslipidemia, Depression, Anxiety, Hypothyroidism, Arthritis, Kidney Stones, Sleep Apnea Additional Medical History: TRAUMATIC BRAIN INJURY - Past Surgical History Surgical History: Neurosurgery, Ortho Surgery - Family History Family Medical History: Diabetes Mellitus, Hypertension - Social History Does patient currently use any type of tobacco product: No Have you used tobacco products in the last 12 months: No Type of Tobacco Use: None Does any household member use tobacco: No Alcohol Use: None Drug Use: None - Medications Home Medications: Penicillins Allergy (Verified 12/30/19 16:44) CONTINUE taking the following medications acetaminophen 300 mg-codeine 30 mg tablet 1 tab PO QID PRN 10/21/22 [History] clonazepam 1 mg tablet 1 mg PO DAILY 10/21/22 [History] clonazepam 1 mg tablet 2 mg PO QHS 10/21/22 [History] esomeprazole magnesium 40 mg capsule,delayed release 40 mg PO QDAY 10/21/22 [History] losartan 50 mg tablet 50 mg PO BID 10/21/22 [History] risperidone 1 mg tablet 1 mg PO BID 10/21/22 [History] sertraline 100 mg tablet 300 tab PO DAILY 10/21/22 [History] tamsulosin 0.4 mg capsule 0.4 mg PO QDAY 10/21/22 [History] testosterone cypionate 200 mg/mL intramuscular oil 0.5 ml IM QWEEK 10/21/22 [History] trazodone 100 mg tablet 300 tab PO QPM 10/21/22 [History] venlafaxine 75 mg capsule,extended release 24 hr (Effexor XR) 75 mg PO TID 10/21/22 [History] - Review of Systems Constitutional: Weakness Eyes: No Symptoms Reported ENT: No Symptoms Reported Respiratory: No Symptoms Reported Cardiovascular: No Symptoms Reported Gastrointestinal: No Symptoms Reported Genitourinary: Frequency, Incontinence Musculoskeletal: Back Pain Skin: No Symptoms Reported Neurological: Weakness, Confusion - Physical Exam Vital Signs: Temperature 98.3 F Pulse Rate [Right Brachial] 93 Pulse Rate 90 Respiratory Rate 18 Blood Pressure [Right Arm] 130/75 Blood Pressure 113/64 O2 Sat by Pulse Oximetry 96 Oriented: Person Eyes: Normal Ear: Normal Nose: Normal Throat: Normal Respiratory: RLL Diminished, LLL Diminished Cardiovascular: Normal. negative: Edema : Normal Auscultation: Bowel Sounds: Normal Palpation: Normal Tenderness: Normal Skin: Decreased Turgur Musculoskeletal: Back:Lumbar Affect: Anxious Speech Pattern: Appropriate, Delayed - Assessment/Plan (1) AMS (altered mental status) Qualifiers: Status: Acute Plan: CT HEAD ON ADMISSION IN ER, SERIAL CE AND EKG. IV HYDRATION, ENGLE CATH WITH STRICT I&OS. BP CONTROL AND PRN SUPPLEMENTAL O2. IV ABTX THERAPY, CXR ON ADMISSION. CONFIRM HOME MEDICATION (2) Degenerative lumbar spinal stenosis Status: Acute (3) HTN (hypertension) Qualifiers: Status: Chronic (4) Rhabdomyolysis Status: Acute - Allergies Allergies/Adverse Reactions: Allergies Allergy/AdvReac Type Severity Reaction Status Date / Time Penicillins Allergy Verified 12/30/19 16:44
--- NOTE | 2022-10-22 12:10 | PCM.PROG ---
Progress Note - Progress Note for Day of Date of Exam: 10/22/22 - Subjective Subjective: PT IS 67 WM, ER ADMISSION WITH UTI, RHABDO AND DEHYDRATION. ER MD SUSPECTED SEROTONIN SYNDROME, AM SEROTONIN LEVEL WAS OBTAINED. PTS HOME MEDICATION HAS BEEN VERIFIED WITH SOME RESUMED WITH DOSING ADJUSTMENTS. PT IS CURRENTLY ON INVANZ FOR UTI WITH CULTURES PENDING. PT HAS ENGLE CATH WITH 2000CC OUTPUT ON EXAM THIS AM. PT IS MORE ORIENTED THIS AM. IMPROVING CE WITH GENTLE IV HYDRATION. - Past Medical Family Social History Allergies: Allergies Penicillins Allergy (Verified 12/30/19 16:44) - Review of Systems ROS: No change since H&P - Vital Signs and I&O's Vital Signs: Temperature 98.3 F Pulse Rate [Right Brachial] 93 Pulse Rate 90 Respiratory Rate 18 Blood Pressure [Right Arm] 130/75 Blood Pressure 113/64 O2 Sat by Pulse Oximetry 96 Intake and Output: Intake & Output 10/20/22 10/21/22 10/22/22 10/23/22 11:59 11:59 11:59 11:59 Intake Total 2368 / 2368 Output Total 5985 / 5985 Balance -3617 / -3617 - Physical Exam Oriented: Person Eyes: Normal Ear: Normal Nose: Normal Throat: Normal Respiratory: Diminished Cardiovascular: Normal. negative: Edema : Normal Auscultation: Bowel Sounds: Normal Tenderness: Normal Skin: Decreased Turgur Musculoskeletal: Back:Lumbar Affect: Anxious Speech Pattern: Appropriate, Delayed - Laboratory and Diagnostics Result Diagrams: 10/22/22 04:00 10/22/22 04:00 Labs: 10/21/22 14:45 Urine,Clean Catch Urine Culture - Preliminary Laboratory WBC 13.3 X10^3/uL (3.6-10.0) H 10/22/22 04:00 RBC 4.72 X10^6/uL (4.7-6.0) 10/22/22 04:00 Hgb 13.8 g/dL (13.5-18.0) 10/22/22 04:00 Hct 40.9 % (42.0-54.0) L 10/22/22 04:00 MCV 86.6 fL (80.0-100.0) 10/22/22 04:00 MCH 29.2 pg (27.0-34.0) 10/22/22 04:00 MCHC 33.8 g/dL (33.0-35.0) 10/22/22 04:00 RDW 19.3 % (11.6-16.5) H 10/22/22 04:00 Plt Count 121 X10^3/uL (150.0-450.0) L 10/22/22 04:00 Plt Count Comment Adequate (ADEQUATE) 10/21/22 15:22 MPV 7.9 fL (7.4-11.0) 10/22/22 04:00 Neut % (Auto) 84.7 % (42.0-75.0) H 10/22/22 04:00 Lymph % (Auto) 9.2 % (21.0-51.0) L 10/22/22 04:00 [place] % (Auto) 6.0 % (0.0-13.0) 10/22/22 04:00 Eos % (Auto) 0.0 % (0.9-2.9) L 10/22/22 04:00 Baso % (Auto) 0.1 % (0.2-1.0) L 10/22/22 04:00 Neut # (Auto) 11.3 x10^3/uL (2.2-4.8) H 10/22/22 04:00 Lymph # (Auto) 1.2 X10^3/uL (1.3-2.9) L 10/22/22 04:00 [place] # (Auto) 0.8 x10^3/uL (0.3-0.8) 10/22/22 04:00 Eos # (Auto) 0.0 x10^3/uL (0.0-0.2) 10/22/22 04:00 Baso # (Auto) 0.0 X10^3/uL (0.0-0.1) 10/22/22 04:00 Absolute Nucleated RBC 0.1 /100WBC 10/22/22 04:00 Plt Morphology Comment Normal (NORMAL) 10/21/22 15:22 RBC Morphology Normal (NORMAL) 10/21/22 15:22 Sodium 137 mmol/L (136-145) 10/22/22 04:00 Corrected Sodium TNP 10/22/22 04:00 Potassium 3.8 mmol/L (3.5-5.1) 10/22/22 04:00 Chloride 102 mmol/L (98-107) 10/22/22 04:00 Carbon Dioxide 28.0 mmol/L (21-32) 10/22/22 04:00 BUN 12 mg/dL (7-18) 10/22/22 04:00 Creatinine 0.96 mg/dL (0.70-1.30) 10/22/22 04:00 Est GFR (MDRD) Af Amer > 60 (>60) 10/22/22 04:00 Est GFR (MDRD) Non-Af > 60 (>60) 10/22/22 04:00 Glucose 97 mg/dL (65-99) 10/22/22 04:00 Hemoglobin A1c 5.9 % 10/21/22 15:22 Calcium 8.9 mg/dL (8.5-10.1) 10/22/22 04:00 Corrected Calcium TNP 10/22/22 04:00 Total Bilirubin 1.00 mg/dL (0.2-1.0) 10/22/22 04:00 AST 48 Units/L (15-37) H 10/22/22 04:00 ALT 33 Units/L (12-78) 10/22/22 04:00 Alkaline Phosphatase 67 Units/L (46-116) 10/22/22 04:00 Creatine Kinase 1413 Units/L (39-308) H 10/22/22 04:00 Troponin I High Sens 56.5 ng/L (4.0-60.0) 10/21/22 21:52 Total Protein 7.4 g/dL (6.4-8.2) 10/22/22 04:00 Albumin 3.5 g/dL (3.4-5.0) 10/22/22 04:00 Globulin 3.9 g/dL (2.5-4.5) 10/22/22 04:00 Albumin/Globulin Ratio 0.9 Ratio (1.1-2.1) L 10/22/22 04:00 Specimen Type Catherized urine 10/22/22 01:15 Urine Color Yellow (YELLOW) 10/22/22 01:15 Urine Appearance Slightly hazy (CLEAR) 10/22/22 01:15 Urine pH 7.0 (5.0 - 8.0) 10/22/22 01:15 Ur Specific [place] 1.010 (1.000-1.030) 10/22/22 01:15 Urine Protein 2+ (NEGATIVE) 10/22/22 01:15 Urine Glucose (UA) Negative (NEGATIVE) 10/22/22 01:15 Urine Ketones Negative (NEGATIVE) 10/22/22 01:15 Urine Blood 3+ (NEGATIVE) 10/22/22 01:15 Urine Nitrite Positive (NEGATIVE) 10/22/22 01:15 Urine Bilirubin Negative (NEGATIVE) 10/22/22 01:15 Urine Urobilinogen Normal (NORMAL) 10/22/22 01:15 Ur Leukocyte Esterase 3+ (NEGATIVE) 10/22/22 01:15 Urine RBC 3-5 /HPF (0-3) A 10/22/22 01:15 Urine WBC 20-30 /HPF (0-5) A 10/22/22 01:15 Ur Squamous Epith Cells Rare /HPF (NEGATIVE) 10/22/22 01:15 Urine Bacteria 1+ /HPF (NEGATIVE) 10/22/22 01:15 Ur Culture Indicated? Yes/culture set up 10/22/22 01:15 Urine Opiates Screen Positive (NEG=<300) 10/21/22 14:45 Urine Methadone Screen Negative (NEG=<300) 10/21/22 14:45 Ur Barbiturates Screen Negative (NEG=<200) 10/21/22 14:45 Ur Phencyclidine Scrn Negative (NEG=<25) 10/21/22 14:45 Ur Amphetamines Screen Negative (NEG=<1000) 10/21/22 14:45 U Benzodiazepines Scrn Positive (NEG=<200) 10/21/22 14:45 Urine Cocaine Screen Negative (NEG=<300) 10/21/22 14:45 U Marijuana (THC) Screen Negative (NEG=<50) 10/21/22 14:45 - Plan (1) Rhabdomyolysis Status: Acute Plan: CT HEAD ON ADMISSION IN ER, SERIAL CE AND EKG. IV HYDRATION, ENGLE CATH WITH STRICT I&OS. BP CONTROL AND PRN SUPPLEMENTAL O2. IV ABTX THERAPY (2) AMS (altered mental status) Status: Acute Qualifiers: (3) Degenerative lumbar spinal stenosis Status: Acute (4) HTN (hypertension) Status: Chronic Qualifiers: (5) UTI (urinary tract infection) Status: Acute
[2022-10-22] MEDS ORDERED: EFFEXOR XR 75 MG CAP 24-HR PO SCH (14:00)
[2022-10-22 20:36] VITALS: BMI 33.2
[2022-10-22] MEDS: INVanz INJ 1 GRAM VIAL 1 G in NS 100 ML IV 100 ML IV SCH (21:10)
[2022-10-22] MEDS: ZOCOR TAB 40 MG PO SCH (21:11)
[2022-10-22] MEDS: KLONOPIN TAB 1 MG PO PRN (21:12)
[2022-10-22] MEDS: COZAAR PO SCH (21:14)
[2022-10-22] MEDS: DESYREL PO SCH (21:14)
[2022-10-23] MEDS: NS 1,000 ML IV 1,000 ML IV SCH ×3 (02:03→21:47)
[2022-10-23 05:11] LABS: BASOPHILS % (AUTO) 0.4 % (0.2-1.0); EOSINOPHILS # (AUTO) 0.1 x10^3/uL (0.0-0.2); HEMATOCRIT 37.9 % (42.0-54.0); HEMOGLOBIN 12.8 g/dL (13.5-18.0); LYMPHOCYTES # (AUTO) 1.6 X10^3/uL (1.3-2.9); LYMPHOCYTES % (AUTO) 17.6 % (21.0-51.0); MEAN CORPUSCULAR HEMOGLOBIN 29.5 pg (27.0-34.0); MEAN CORPUSCULAR HGB CONC 33.7 g/dL (33.0-35.0); MEAN CORPUSCULAR VOLUME 87.3 fL (80.0-100.0); MEAN PLATELET VOLUME 7.7 fL (7.4-11.0); MONOCYTES # (AUTO) 0.6 x10^3/uL (0.3-0.8); MONOCYTES % (AUTO) 6.3 % (0.0-13.0); NEUTROPHILS # (AUTO) 6.9 x10^3/uL (2.2-4.8); NEUTROPHILS % (AUTO) 74.7 % (42.0-75.0); RED BLOOD COUNT 4.34 X10^6/uL (4.7-6.0); RED CELL DISTRIBUTION WIDTH 18.9 % (11.6-16.5); WHITE BLOOD COUNT 9.2 X10^3/uL (3.6-10.0)
[2022-10-23 05:23] LABS: ALANINE AMINOTRANSFERASE 25 Units/L (12-78); ALBUMIN 2.7 g/dL (3.4-5.0); ALKALINE PHOSPHATASE 72 Units/L (46-116); ASPARTATE AMINO TRANSFERASE 34 Units/L (15-37); BLOOD UREA NITROGEN 14 mg/dL (7-18); CALCIUM 8.3 mg/dL (8.5-10.1); CARBON DIOXIDE 28.5 mmol/L (21-32); CHLORIDE 106 mmol/L (98-107); COR CA(FOR HYPOALB) 9.3 mg/dL (8.5-10.1); CREATININE 0.94 mg/dL (0.70-1.30); SODIUM 139 mmol/L (136-145); TOTAL PROTEIN 6.3 g/dL (6.4-8.2); eGFR NON BLACK RACES > 60 (>60)
[2022-10-23] MEDS: SYNTHROID 150 mcg TAB PO SCH (05:47)
[2022-10-23] MEDS: PERIACTIN TAB 4 MG PO SCH ×3 (05:47→21:53)
[2022-10-23] MEDS: COZAAR PO SCH ×2 (08:22→21:47)
[2022-10-23] MEDS: EFFEXOR XR 37.5 MG CAP 24-HR PO SCH (08:22)
[2022-10-23] MEDS: FLOMAX PO SCH (08:22)
[2022-10-23] MEDS ORDERED: FLOMAX PO SCH (09:00)
[2022-10-23] MEDS: LOVENOX INJ 40 MG SYR SC SCH (09:15)
--- NOTE | 2022-10-23 12:54 | PCM.PROG ---
Progress Note - Progress Note for Day of Date of Exam: 10/23/22 - Subjective Subjective: IS A 67 YEAR OLD PATIENT OF OURS. HE WAS ADMITTED OBSERVATION STATUS ON 10/21/22 FOR TREATMENT OF RHABDOMYOLYSIS, UTI, DEHYDRATION, AND LEUKOCYTOSIS. HIS PMH INCLUDES: TRAUMATIC BRAIN INJURY, HYPERLIPIDEMIA, HTN, SLEEP APNEA, CHRONIC CONSTIPATION, BPH, ARTHRITIS, HYPOTHYROIDISM, ANXIETY, DEPRESSION, NEUROSURGERY, LEFT KNEE SURGERY, LEFT HIP SURGERY, AND BACK SURGERY. TODAY, HE IS ALERT AND ORIENTED, LYING IN BED ON MORNING ROUNDS. HE COMPLAINS OF GENERALIZED WEAKNESS THIS MORNING. HE WAS HAVING DIFFICULTY URINATING AND LOWER ABDOMINAL PAIN YESTERDAY, THEREFORE, AN INDWELLING CATHETER WAS INSERTED. HE REPORTS IMPROVEMENT IN LOWER ABDOMINAL PAIN SINCE CATHETER WAS INSERTED AND HE WAS ABLE TO HAVE SOME RELIEF FROM THE URINARY RETENTION. NURSING STAFF REPORTS THAT HE HAS PUT OUT ABOUT 2200 ML SINCE CATHETER WAS INSERTED. ON EXAMINATION TODAY, HEART IS REGULAR IN RATE AND RHYTHM. BILATERAL LUNGS ARE NOTED WITH DIMINISHED LUNG SOUNDS THROUGHOUT. ABDOMEN IS ROUND, SOFT, AND NON-TENDER WITH NORMAL BOWEL SOUNDS NOTED IN ALL QUADRANTS. A ENGLE CATHETER IS NOTED TO BEDSIDE DRAINAGE. HE DOES HAVE SOME WEAKNESS TO BILATERAL LEGS. TRACE EDEMA NOTED. NO UPPER EXTREMITY WEAKNESS NOTED. HIS VITALS THIS MORNING ARE: 98.3-76-20-96%-191/91. LABS WERE OBTAINED. WBC 9.2, RBC 4.34, HGB 12.8, HCT 37.9, PLT COUNT 120, SODIUM 137, POTASSIUM 3.8, CHLORIDE 102, BUN 12, CREATININE 0.96, GLUCOSE 97, CALCIUM 8.9, TOTAL BILI 1.00, AST 48, ALT 33, ALK PHOS 67, CREATINE KINASE 1413, TOTAL PROTEIN 7.4, ALBUMIN 3.5. URINE CULTURE REVEALED GROWTH OF CITROBACTER KOSERI. HE IS CURRENTLY RECEIVING NORMAL SALINE AT 100 ML/HR, INVANZ 1G IV HS, LOVENOX 40MG SC DAILY. HIS HOME MEDICATIONS OF TYLENOL #3, KLONOPIN, PERIACTIN, SYNTHROID, COZAAR, ZOCOR, FLOMAX, DESYREL, AND EFFEXOR WERE RESUMED. WE WILL CONTINUE WITH CURRENT PLAN OF CARE TODAY. OTHERWISE, WE WILL FOLLOW-UP WITH AM LABS AND CONTINUE TO MONITOR. TIME SPENT ON CLINICAL ASSESSMENT, REVIWING LABS AND IMAGING, DECISION MAKING, AND DOCUMENTATION GREATER THAN 45 MINUTES. - Past Medical Family Social History Past Med/Fam/Surg Hx: No changes since H&P Allergies: Allergies Penicillins Allergy (Verified 12/30/19 16:44) - Review of Systems ROS: No change since H&P - Vital Signs and I&O's Vital Signs: Temperature 98.3 F Pulse Rate [Right Brachial] 70 Pulse Rate 76 Respiratory Rate 18 Blood Pressure [Right Arm] 126/82 Blood Pressure 128/67 O2 Sat by Pulse Oximetry 90 Intake and Output: Intake & Output 10/21/22 10/22/22 10/23/22 10/24/22 11:59 11:59 11:59 11:59 Intake Total 2368 / 2368 5096 / 5096 Output Total 5985 / 5985 3250 / 3250 Balance -3617 / -3617 1846 / 1846 - Physical Exam Oriented: Normal Eyes: Normal Ear: Normal Nose: Normal Throat: Normal Respiratory: Diminished Cardiovascular: Normal. negative: Edema : Normal Auscultation: Bowel Sounds: Normal Palpation: Normal Tenderness: Normal Skin: Decreased Turgur Musculoskeletal: Back:Lumbar, Instability (LOWER EXTREMITY WEAKNESS ) Psychiatric: Normal Mood Description: Calm Affect: Anxious Speech Pattern: Clear, Appropriate - Laboratory and Diagnostics Result Diagrams: 10/23/22 04:40 10/23/22 04:40 Labs: 10/22/22 01:15 Urine,Catheterized Urine Culture - Preliminary 10/21/22 14:45 Urine,Clean Catch Urine Culture - Final [facility] WBC 9.2 X10^3/uL (3.6-10.0) 10/23/22 04:40 RBC 4.34 X10^6/uL (4.7-6.0) L 10/23/22 04:40 Hgb 12.8 g/dL (13.5-18.0) L 10/23/22 04:40 Hct 37.9 % (42.0-54.0) L 10/23/22 04:40 MCV 87.3 fL (80.0-100.0) 10/23/22 04:40 MCH 29.5 pg (27.0-34.0) 10/23/22 04:40 MCHC 33.7 g/dL (33.0-35.0) 10/23/22 04:40 RDW 18.9 % (11.6-16.5) H 10/23/22 04:40 Plt Count 120 X10^3/uL (150.0-450.0) L 10/23/22 04:40 Plt Count Comment Adequate (ADEQUATE) 10/21/22 15:22 MPV 7.7 fL (7.4-11.0) 10/23/22 04:40 Neut % (Auto) 74.7 % (42.0-75.0) 10/23/22 04:40 Lymph % (Auto) 17.6 % (21.0-51.0) L 10/23/22 04:40 Bond % (Auto) 6.3 % (0.0-13.0) 10/23/22 04:40 Eos % (Auto) 1.0 % (0.9-2.9) 10/23/22 04:40 Baso % (Auto) 0.4 % (0.2-1.0) 10/23/22 04:40 Neut # (Auto) 6.9 x10^3/uL (2.2-4.8) H 10/23/22 04:40 Lymph # (Auto) 1.6 X10^3/uL (1.3-2.9) 10/23/22 04:40 Bond # (Auto) 0.6 x10^3/uL (0.3-0.8) 10/23/22 04:40 Eos # (Auto) 0.1 x10^3/uL (0.0-0.2) 10/23/22 04:40 Baso # (Auto) 0.0 X10^3/uL (0.0-0.1) 10/23/22 04:40 Absolute Nucleated RBC 0.0 /100WBC 10/23/22 04:40 Plt Morphology Comment Normal (NORMAL) 10/21/22 15:22 RBC Morphology Normal (NORMAL) 10/21/22 15:22 Sodium 139 mmol/L (136-145) 10/23/22 04:40 Corrected Sodium TNP 10/23/22 04:40 Potassium 3.7 mmol/L (3.5-5.1) 10/23/22 04:40 Chloride 106 mmol/L (98-107) 10/23/22 04:40 Carbon Dioxide 28.5 mmol/L (21-32) 10/23/22 04:40 BUN 14 mg/dL (7-18) 10/23/22 04:40 Creatinine 0.94 mg/dL (0.70-1.30) 10/23/22 04:40 Est GFR (MDRD) Af Amer > 60 (>60) 10/23/22 04:40 Est GFR (MDRD) Non-Af > 60 (>60) 10/23/22 04:40 Glucose 92 mg/dL (65-99) 10/23/22 04:40 Hemoglobin A1c 5.9 % 10/21/22 15:22 Calcium 8.3 mg/dL (8.5-10.1) L 10/23/22 04:40 Corrected Calcium 9.3 mg/dL (8.5-10.1) 10/23/22 04:40 Total Bilirubin 0.60 mg/dL (0.2-1.0) 10/23/22 04:40 AST 34 Units/L (15-37) 10/23/22 04:40 ALT 25 Units/L (12-78) 10/23/22 04:40 Alkaline Phosphatase 72 Units/L (46-116) 10/23/22 04:40 Creatine Kinase 501 Units/L (39-308) H 10/23/22 00:20 Troponin I High Sens 25.6 ng/L (4.0-60.0) 10/23/22 00:20 Total Protein 6.3 g/dL (6.4-8.2) L 10/23/22 04:40 Albumin 2.7 g/dL (3.4-5.0) L 10/23/22 04:40 Globulin 3.6 g/dL (2.5-4.5) 10/23/22 04:40 Albumin/Globulin Ratio 0.8 Ratio (1.1-2.1) L 10/23/22 04:40 Specimen Type Catherized urine 10/22/22 01:15 Urine Color Yellow (YELLOW) 10/22/22 01:15 Urine Appearance Slightly hazy (CLEAR) 10/22/22 01:15 Urine pH 7.0 (5.0 - 8.0) 10/22/22 01:15 Ur Specific [place] 1.010 (1.000-1.030) 10/22/22 01:15 Urine Protein 2+ (NEGATIVE) 10/22/22 01:15 Urine Glucose (UA) Negative (NEGATIVE) 10/22/22 01:15 Urine Ketones Negative (NEGATIVE) 10/22/22 01:15 Urine Blood 3+ (NEGATIVE) 10/22/22 01:15 Urine Nitrite Positive (NEGATIVE) 10/22/22 01:15 Urine Bilirubin Negative (NEGATIVE) 10/22/22 01:15 Urine Urobilinogen Normal (NORMAL) 10/22/22 01:15 Ur Leukocyte Esterase 3+ (NEGATIVE) 10/22/22 01:15 Urine RBC 3-5 /HPF (0-3) A 10/22/22 01:15 Urine WBC 20-30 /HPF (0-5) A 10/22/22 01:15 Ur Squamous Epith Cells Rare /HPF (NEGATIVE) 10/22/22 01:15 Urine Bacteria 1+ /HPF (NEGATIVE) 10/22/22 01:15 Ur Culture Indicated? Yes/culture set up 10/22/22 01:15 Urine Opiates Screen Positive (NEG=<300) 10/21/22 14:45 Urine Methadone Screen Negative (NEG=<300) 10/21/22 14:45 Ur Barbiturates Screen Negative (NEG=<200) 10/21/22 14:45 Ur Phencyclidine Scrn Negative (NEG=<25) 10/21/22 14:45 Ur Amphetamines Screen Negative (NEG=<1000) 10/21/22 14:45 U Benzodiazepines Scrn Positive (NEG=<200) 10/21/22 14:45 Urine Cocaine Screen Negative (NEG=<300) 10/21/22 14:45 U Marijuana (THC) Screen Negative (NEG=<50) 10/21/22 14:45 - Plan (1) Rhabdomyolysis Status: Acute Qualifiers: Rhabdomyolysis type: traumatic Encounter type: initial encounter Quali fied Code(s): T79.6XXA - Traumatic ischemia of muscle, initial encounter Plan: NORMAL SALINE AT 100 ML/HR, INVANZ 1G IV HS, LOVENOX 40MG SC DAILY. HIS HOME MEDICATIONS OF TYLENOL #3, KLONOPIN, PERIACTIN, SYNTHROID, COZAAR, ZOCOR, FLOMAX, DESYREL, AND EFFEXOR WERE RESUMED. PT/OT (2) Dehydration Status: Acute (3) Leucocytosis Status: Acute Qualifiers: Leukocytosis type: unspecified Qualified Code(s): D72.829 - Elevated white blood cell count, unspecified (4) Urinary tract infection Status: Acute Qualifiers: Urinary tract infection type: acute cystitis Hematuria presence: with hematuria Qualified Code(s): N30.01 - Acute cystitis with hematuria (5) Generalized weakness Status: Acute (6) Dyslipidemia Status: Chronic (7) HTN (hypertension) Status: Chronic Qualifiers: Hypertension type: primary hypertension (8) Sleep apnea Status: Chronic Qualifiers: Sleep apnea type: obstructive Qualified Code(s): G47.33 - Obstructive sleep apnea (adult) (pediatric) (9) BPH (benign prostatic hyperplasia) Status: Chronic Qualifiers: Lower urinary tract symptom presence: symptoms present Lower urinary tract symptom detail: incomplete bladder emptying Qualified Code(s): N40.1 - Benign prostatic hyperplasia with lower urinary tract symptoms; R39.14 - Feeling of incomplete bladder emptying (10) Anxiety Status: Chronic
[2022-10-23] MEDS: DESYREL PO SCH (21:47)
[2022-10-23] MEDS: ZOCOR TAB 40 MG PO SCH (21:48)
[2022-10-23] MEDS: INVanz INJ 1 GRAM VIAL 1 G in NS 100 ML IV 100 ML IV SCH (21:50)
[2022-10-23] MEDS: KLONOPIN TAB 1 MG PO PRN (21:53)
[2022-10-24 05:33] LABS: BASOPHILS % (AUTO) 0.3 % (0.2-1.0); EOSINOPHILS # (AUTO) 0.1 x10^3/uL (0.0-0.2); EOSINOPHILS % (AUTO) 1.1 % (0.9-2.9); HEMATOCRIT 37.5 % (42.0-54.0); HEMOGLOBIN 12.7 g/dL (13.5-18.0); LYMPHOCYTES # (AUTO) 1.5 X10^3/uL (1.3-2.9); LYMPHOCYTES % (AUTO) 19.2 % (21.0-51.0); MEAN CORPUSCULAR HEMOGLOBIN 29.5 pg (27.0-34.0); MEAN CORPUSCULAR VOLUME 86.9 fL (80.0-100.0); MEAN PLATELET VOLUME 7.5 fL (7.4-11.0); MONOCYTES # (AUTO) 0.5 x10^3/uL (0.3-0.8); MONOCYTES % (AUTO) 6.9 % (0.0-13.0); NEUTROPHILS # (AUTO) 5.5 x10^3/uL (2.2-4.8); NEUTROPHILS % (AUTO) 72.5 % (42.0-75.0); RED BLOOD COUNT 4.32 X10^6/uL (4.7-6.0); RED CELL DISTRIBUTION WIDTH 18.6 % (11.6-16.5); WHITE BLOOD COUNT 7.6 X10^3/uL (3.6-10.0)
[2022-10-24 05:52] LABS: ALANINE AMINOTRANSFERASE 39 Units/L (12-78); ALBUMIN 2.8 g/dL (3.4-5.0); ALKALINE PHOSPHATASE 59 Units/L (46-116); ASPARTATE AMINO TRANSFERASE 41 Units/L (15-37); BLOOD UREA NITROGEN 14 mg/dL (7-18); CALCIUM 8.2 mg/dL (8.5-10.1); CARBON DIOXIDE 28.8 mmol/L (21-32); CHLORIDE 104 mmol/L (98-107); COR CA(FOR HYPOALB) 9.2 mg/dL (8.5-10.1); CREATINE KINASE 228 Units/L (39-308); CREATININE 1.01 mg/dL (0.70-1.30); SODIUM 138 mmol/L (136-145); TOTAL PROTEIN 6.4 g/dL (6.4-8.2); eGFR NON BLACK RACES > 60 (>60)
[2022-10-24] MEDS: SYNTHROID 150 mcg TAB PO SCH (06:16)
[2022-10-24] MEDS: PERIACTIN TAB 4 MG PO SCH ×2 (06:17→13:41)
[2022-10-24] MEDS: NS 1,000 ML IV 1,000 ML IV SCH ×3 (06:19→11:04)
[2022-10-24] MEDS ORDERED: POTASSIUM CHL 40 MEQ/NS 0.45% 500 ML IV PRN (07:46)
[2022-10-24] MEDS ORDERED: MICRO K EXTEN CAP 10 MEQ PO PRN (07:46)
[2022-10-24] MEDS ORDERED: K-DUR TAB 20 MEQ PO PRN (07:46)
[2022-10-24] MEDS ORDERED: KLOR-CON PO PRN (07:46)
[2022-10-24] MEDS ORDERED: POTASSIUM CHL 60 MEQ/NS 0.45% 500 ML IV PRN (07:46)
[2022-10-24] MEDS ORDERED: POTASSIUM CHLORIDE LIQ 20 MEQ UDC PO PRN (07:46)
[2022-10-24] MEDS ORDERED: K-RIDER 10 MEQ/NS 100 ML 10 MEQ/100 ML BAG IV PRN (07:46)
[2022-10-24] MEDS: LOVENOX INJ 40 MG SYR SC SCH (08:13)
[2022-10-24] MEDS: FLOMAX PO SCH (08:14)
[2022-10-24] MEDS: COZAAR PO SCH (08:14)
[2022-10-24] MEDS: EFFEXOR XR 37.5 MG CAP 24-HR PO SCH (08:14)
[2022-10-24] MEDS ORDERED: NexIUM PO SCH ×2 (09:00→21:00)
[2022-10-24] MEDS: TYLENOL #3 TAB (W/CODEINE) PO PRN (11:06)
[2022-10-24 11:13] VITALS: BP 156/91
== END 2022-10-24 16:40 | disposition home or self-care (01) ==
LOC: MED/SURG 14:27 → ER 14:27 → MED/SURG 19:49 → ICU 22:30
PROVIDERS: ADMIT Internal Medicine; ATTEND Internal Medicine
DX: B96.89 Other specified bacterial agents as the cause of diseases classified elsewhere; E11.65 Type 2 diabetes mellitus with hyperglycemia; R07.89 Other chest pain; R77.8 Other specified abnormalities of plasma proteins; E78.2 Mixed hyperlipidemia; F41.8 Other specified anxiety disorders; M62.82 Rhabdomyolysis; I10 Essential (primary) hypertension; R41.82 Altered mental status, unspecified; R74.8 Abnormal levels of other serum enzymes; E86.0 Dehydration; G47.33 Obstructive sleep apnea (adult) (pediatric); N40.1 Benign prostatic hyperplasia with lower urinary tract symptoms; E03.8 Other specified hypothyroidism; N30.01 Acute cystitis with hematuria; T43.225A Adverse effect of selective serotonin reuptake inhibitors, initial encounter; M48.061 Spinal stenosis, lumbar region without neurogenic claudication